=== PATIENT | male | born 1940 | race Caucasian/White ===

== ENCOUNTER 2017-01-17 10:21 | Emergency (ER) | payer BC ==
[~2017-01-17] VITALS: Ht 185.4 cm; Wt 122.9 kg
[~2017-01-17 10:21] MED LIST: FINA5TAB PO; FLM4 PO; LISI-725 PO
[2017-01-17 10:47] VITALS: TEMP 36.5; Ht 185.4 cm; Wt 122.9 kg
--- NOTE | 2017-01-17 11:43 | DIAGNOSTIC IMAGING REPORT ---
CHEST ONE VIEW PORTABLE CLINICAL HISTORY: severe hypertension ARM HEAVINESS COMPARISON STUDY: 07/01/2010 FINDINGS: The heart is borderline enlarged. There is no failure. There is no focal pulmonary consolidation. There are no pleural effusions.[ IMPRESSION: Borderline cardiomegaly.. No acute findings. Electronically signed by: Rajan Lee M.D. 01/17/2017 11:42 AM Dictated Date/Time: 01/17/2017 11:41 AM
--- NOTE | 2017-01-17 11:49 | EMERGENCY ROOM VISIT NOTE ---
History Report prepared by Merle: Dori Lundberg Under the Supervision of: Dr. Mahesh Ervin M.D. First contact with patient: 11:11 Chief Complaint: HYPERTENSION Stated Complaint: HEAVY ARMS, HIGH BLOOD PRESSURE History of Present Illness The patient is a 76 year old male who presents to the Emergency Room with complaints of hypertension occurring today. He reports that he missed his Lisinopril last night, but that he took it this morning. He states that his arms have felt heavy and weak. The patient denies other symptoms. He has a history of atrial fibrillation. Source of History: patient Onset: today Position: other (global) Quality: other (hypertension) Associated Symptoms: + weakness (of arms), No fevers Review of Systems See HPI for pertinent positives & negatives. A total of 10 systems reviewed and were otherwise negative. Past Medical & Surgical Medical Problems: (1) Heart disease (2) Hypertension (3) Kidney stones (4) Urinary problem Family History Hypertension Kidney stone Social History Smoking Status: Former Smoker Marital Status: Housing Status: lives with significant other Current/Historical Medications Scheduled Flecainide (Tambocor), 150 MG PO BID Lisinopril (Zestril), 40 MG PO DAILY Tamsulosin Hcl (Flomax), 0.4 MG PO DAILY Allergies Coded Allergies: Morphine (Verified Adverse Reaction, Mild, FACE REDDENED, REPORTS FEELING HOT, 11/22/10) Physical Exam Vital Signs Date Time Temp Pulse Resp B/P (MAP) Pulse Ox O2 Delivery O2 Flow Rate FiO2 01/17/17 14:10 48 16 137/72 98 Room Air 01/17/17 12:23 52 16 149/81 98 Room Air 01/17/17 12:07 52 01/17/17 12:06 96 Room Air 01/17/17 12:06 96 Room Air 01/17/17 11:42 52 16 145/90 98 Room Air 01/17/17 10:47 36.5 57 18 173/83 96 Room Air Physical Exam GENERAL: Patient is a healthy-appearing well-nourished male HEAD: Normocephalic atraumatic EYES: Ocular movements intact pupils equal and react to light OROPHARYNX mucous membranes are moist no exudates present no erythema or edema present NECK: Supple no nuchal rigidity CHEST: Good equal expansion LUNGS: Clear and equal to auscultation CARDIAC: Normal S1 and S2 ABDOMEN: Soft nontender no guarding BACK: No CVA tenderness EXTREMITIES: No pain upon palpation normal muscle strength in all groups no clubbing cyanosis or edema NEURO: Patient is following commands and answering questions appropriately. Alert and oriented x3 Cranial Nerves 2-12 grossly intact Medical Decision & Procedures ER Provider Diagnostic Interpretation: X-ray results as stated below per interpretation by me and the radiologist: CHEST ONE VIEW PORTABLE CLINICAL HISTORY: severe hypertension ARM HEAVINESS COMPARISON STUDY: 07/01/2010 FINDINGS: The heart is borderline enlarged. There is no failure. There is no focal pulmonary consolidation. There are no pleural effusions.[ IMPRESSION: Borderline cardiomegaly.. No acute findings. Electronically signed by: Rajan Lee M.D. 01/17/2017 11:42 AM Dictated Date/Time: 01/17/2017 11:41 AM Laboratory Results 01/17/17 11:45 Red Blood Count 5.25, Mean Corpuscular Volume 92.6, Mean Corpuscular Hemoglobin 30.1, Mean Corpuscular Hemoglobin Concent 32.5, Mean Platelet Volume 10.3, Neutrophils (%) (Auto) 62.2, Lymphocytes (%) (Auto) 18.8, Monocytes (%) (Auto) 14.1, Eosinophils (%) (Auto) 4.3, Basophils (%) (Auto) 0.4, Neutrophils # (Auto ) 2.91, Lymphocytes # (Auto) 0.88, Monocytes # (Auto) 0.66, Eosinophils # (Auto ) 0.20, Basophils # (Auto) 0.02 01/17/17 13:15 Test 01/17/17 11:45 01/17/17 13:15 White Blood Count 4.68 K/uL (4.8-10.8) Red Blood Count 5.25 M/uL (4.7-6.1) Hemoglobin 15.8 g/dL (14.0-18.0) Hematocrit 48.6 % (42-52) Mean Corpuscular Volume 92.6 fL (80-100) Mean Corpuscular Hemoglobin 30.1 pg (25-34) Mean Corpuscular Hemoglobin Concent 32.5 g/dl (32-36) Platelet Count 237 K/uL (130-400) Mean Platelet Volume 10.3 fL (7.4-10.4) Neutrophils (%) (Auto) 62.2 % Lymphocytes (%) (Auto) 18.8 % Monocytes (%) (Auto) 14.1 % Eosinophils (%) (Auto) 4.3 % Basophils (%) (Auto) 0.4 % Neutrophils # (Auto) 2.91 K/uL (1.4-6.5) Lymphocytes # (Auto) 0.88 K/uL (1.2-3.4) Monocytes # (Auto) 0.66 K/uL (0.11-0.59) Eosinophils # (Auto) 0.20 K/uL (0-0.5) Basophils # (Auto) 0.02 K/uL (0-0.2) RDW Standard Deviation 43.0 fL (36.4-46.3) RDW Coefficient of Variation 12.8 % (11.5-14.5) Immature Granulocyte % (Auto) 0.2 % Immature Granulocyte # (Auto) 0.01 K/uL (0.00-0.02) Prothrombin Time 13.9 SECONDS (9.0-12.0) Prothromb Time International Ratio 1.3 (0.9-1.1) Activated Partial Thromboplast Time 42.7 SECONDS (21.0-31.0) Partial Thromboplastin Ratio 1.6 Urine Color DK YELLOW Urine Appearance CLEAR (CLEAR) Urine pH 7.0 (4.5-7.5) Urine Specific Greene 1.017 (1.000-1.030) Urine Protein NEG (NEG) Urine Glucose (UA) NEG (NEG) Urine Ketones NEG (NEG) Urine Occult Blood NEG (NEG) Urine Nitrite NEG (NEG) Urine Bilirubin NEG (NEG) Urine Urobilinogen NEG (NEG) Urine Leukocyte Esterase NEG (NEG) Anion Gap 3.0 mmol/L (3-11) Est Creatinine Clear Calc Drug Dose 85.0 ml/min Estimated GFR () 83.8 Estimated GFR (Non- 72.3 BUN/Creatinine Ratio 15.9 (10-20) Calcium Level 9.0 mg/dl (8.5-10.1) Total Bilirubin 0.9 mg/dl (0.2-1) Direct Bilirubin 0.3 mg/dl (0-0.2) Aspartate Amino Transf (AST/SGOT) 18 U/L (15-37) Alanine Aminotransferase (ALT/SGPT) 21 U/L (12-78) Alkaline Phosphatase 65 U/L (45-117) Total Creatine Kinase 78 U/L (39-308) Creatine Kinase MB 2.5 ng/ml (0.5-3.6) Creatine Kinase MB Ratio 3.2 (0-3.0) Troponin I < 0.015 ng/ml (0-0.045) Total Protein 6.7 gm/dl (6.4-8.2) Albumin 3.6 gm/dl (3.4-5.0) Lipase 82 U/L (73-393) Thyroid Stimulating Hormone (TSH) 0.681 uIu/ml (0.300-4.500) Labs reviewed by ED physician. ECG Indication: other (hypertension) Rate (beats per minute): 51 Rhythm: sinus bradycardia Findings: 1st degree AV block, no acute ischemic change, no ectopy ED Course 1149: Past medical records reviewed. The patient was evaluated in room C8. A complete history and physical examination was performed. Medical Decision Differential diagnosis: Etiologies such as benign hypertension, hypertensive emergency, cardiovascular pathology, pheochromocytoma, electrolyte abnormality, renal disease, endorgan damage, as well as others were entertained. This is a 76-year-old male who presents emergency department complaining of hypertension. The patient notes that he did not take his blood pressure medication last night prior to coming into the emergency department. As such as blood pressure has fallen. He has normal laboratory work has no symptoms at this point. Feel he can be safely discharged home for follow-up with his primary care physician. Patient was in agreement with the treatment plan. Medication Reconcilliation Current Medication List: was personally reviewed by me Blood Pressure Screening Patient's blood pressure: Elevated blood pressure Blood pressure disposition: Referred to PCP Impression Primary Impression: Hypertension Scribe Attestation The scribe's documentation has been prepared under my direction and personally reviewed by me in its entirety. I confirm that the note above accurately reflects all work, treatment, procedures, and medical decision making performed by me. Departure Information Dispostion Home / Self-Care Referrals Chris Hairston M.D. (PCP) Forms HOME CARE DOCUMENTATION FORM, IMPORTANT VISIT INFORMATION, WORK / SCHOOL INSTRUCTIONS Patient Instructions Hypertension In, My [facility] Additional Instructions You were found to have an elevated blood pressure today (>120 sytolic or >90 diastolic). Per medicare guidelines, you need to follow up with this blood pressure screening with your Primary Care Physician (PCP). For a new PCP call [phone]. You have been examined and treated today on an emergency basis only. This is not a substitute for, or an effort to provide, complete comprehensive medical care. It is impossible to recognize and treat all injuries or illnesses in a single emergency department visit. It is therefore important that you follow up closely with [facility]. Call as soon as possible for an appointment. Thank you for your time and consideration. I look forward to speaking with you again soon. Please don't hesitate to call us if you have any questions. Problem Qualifiers Primary Impression: Hypertension Hypertension type: unspecified Qualified Codes: I10 - Essential (primary) hypertension
[2017-01-17 12:06] VITALS: O2SAT 96
[2017-01-17 12:28] LABS: INR 1.3 (0.9-1.1); PARTIAL THROMBOPLASTIN RATIO 1.6; PROTHROMBIN TIME (PATIENT) 13.9 SECONDS (9.0-12.0)
[2017-01-17 13:40] LABS: URINE APPEARANCE CLEAR (CLEAR); URINE BILIRUBIN NEG (NEG); URINE COLOR DK YELLOW; URINE NITRITE NEG (NEG); URINE SPECIFIC GRAVITY 1.017 (1.000-1.030); UROBILINOGEN NEG (NEG)
[2017-01-17 13:41] LABS: MANUAL MICROSCOPIC REQUIRED? NO; REVIEW REQ? NO
[2017-01-17 13:56] LABS: ALT/SGPT 21 U/L (12-78); BLOOD UREA NITROGEN 16 mg/dl (7-18); BUN/CREATININE RATIO 15.9 (10-20); CARBON DIOXIDE 31 mmol/L (21-32); CHLORIDE 104 mmol/L (98-107); GLUCOSE 92 mg/dl (70-99); POTASSIUM 4.3 mmol/L (3.5-5.1); SODIUM 138 mmol/L (136-145)
[2017-01-17 14:10] VITALS: BP 137/72; PULSE 48; O2SAT 98
[2017-01-17 14:12] LABS: ALKALINE PHOSPHATASE 65 U/L (45-117); AST/SGOT 18 U/L (15-37); CKMB/CK RATIO 3.2 (0-3.0); THYROID STIMULATING HORMONE 0.681 uIu/ml (0.300-4.500)
[2017-01-17] MEDS ORDERED: LISI40TA PO (14:19)
[2017-01-17] MEDS ORDERED: FLEC100T21 PO (14:19)
[2017-01-17] MEDS ORDERED: TAMS0.4C38 PO (14:19)
[2017-01-17 15:22] LABS: BASO % 0.4 %; BASO ABS # 0.02 K/uL (0-0.2); COMPLETE YES; EOS % 4.3 %; HEMATOCRIT 48.6 % (42-52); IG% 0.2 %; LYMPH % 18.8 %; LYMPH ABS # 0.88 K/uL (1.2-3.4); MEAN CELL VOLUME 92.6 fL (80-100); MEAN CORPUSCULAR HEMOGLOBIN 30.1 pg (25-34); MEAN CORPUSCULAR HGB CONC 32.5 g/dl (32-36); MEAN PLATELET VOLUME 10.3 fL (7.4-10.4); MONO % 14.1 %; NEUT % 62.2 %; PLATELET COUNT 237 K/uL (130-400); RED BLOOD COUNT 5.25 M/uL (4.7-6.1); WHITE BLOOD COUNT 4.68 K/uL (4.8-10.8)
== END 2017-01-17 14:41 | disposition home or self-care (01) ==
LOC: C.EDB 10:23 → C.EDC 14:41
DX: I10 Essential (primary) hypertension (principal); I48.91 Unspecified atrial fibrillation; Z87.442 Personal history of urinary calculi; Z82.49 Family history of ischemic heart disease and other diseases of the circulatory system; Z84.1 Family history of disorders of kidney and ureter; Z87.891 Personal history of nicotine dependence; Z79.899 Other long term (current) drug therapy

== ENCOUNTER → 2017-03-05 | Outpatient (CLI) | payer BC ==
[~2017-03-05] MED LIST changes: -FINA5TAB PO; +FLEC100T21 PO; -FLM4 PO; -LISI-725 PO; +LISI40TA PO; +TAMS0.4C38 PO
[2017-03-05 13:09] LABS: BLOOD UREA NITROGEN 19 mg/dl (7-18); BUN/CREATININE RATIO 19.3 (10-20)
== END | disposition home or self-care (01) ==
LOC: C.LABPVFM 08:42
PROVIDERS: ATTEND Internal Medicine Geriatric Medicine
DX: I10 Essential (primary) hypertension (principal); I48.91 Unspecified atrial fibrillation; N20.0 Calculus of kidney; M19.90 Unspecified osteoarthritis, unspecified site; G62.9 Polyneuropathy, unspecified; I49.5 Sick sinus syndrome; R97.20 Elevated prostate specific antigen [PSA]; N52.9 Male erectile dysfunction, unspecified

== ENCOUNTER 2024-01-20 05:17 | Observation (INO) ==
--- NOTE | 2024-01-15 10:40 | PAT Medication Instructions ---
Medication Instructions Date of Service January 15, 2024 Home Medications Medication Instructions Recorded apixaban 5 mg tablet (Eliquis) 5 mg PO BID #180 tabs 05/24/22 sennosides 8.6 mg tablet (Senokot) 8.6 mg PO BID PRN constipation #30 04/04/23 tabs losartan 100 mg tablet 100 mg PO QAM #90 tabs 07/11/23 flecainide 150 mg tablet 150 mg PO BID #180 tabs 10/17/23 silodosin 8 mg capsule (Rapaflo) 8 mg PO QPM #90 caps 11/21/23 multivitamin (Multiple Vitamins tablet) 1 tab PO QAM ascorbic acid (vitamin C) 500 mg tablet (Vitamin C) 500 mg PO QAM cyanocobalamin (vitamin B-12) 500 mcg tablet (Vitamin B-12) 500 mcg PO QAM polyethylene glycol 3350 17 gram oral powder packet (Miralax) 17 g PO QAM cholecalciferol (vitamin D3) 25 mcg (1,000 unit) tablet (Vitamin D3) 1,000 unit PO QAM apixaban 5 mg tablet (Eliquis) 5 mg PO BID zinc gluconate 50 mg tablet 25 mg PO QAM sennosides 8.6 mg tablet (Senokot) 8.6 mg PO BID PRN dutasteride 0.5 mg capsule 0.5 mg PO DAILY losartan 100 mg tablet 100 mg PO QAM flecainide 150 mg tablet 150 mg PO BID tavaborole 5 % topical solution with applicator 1 applic topical DAILY silodosin 8 mg capsule (Rapaflo) 8 mg PO QPM furosemide 40 mg tablet 40 mg PO UD PRN potassium chloride 20 mEq tablet,extended release 20 meq PO UD PRN solifenacin 5 mg tablet (Vesicare) 5 mg PO QAM vit C 250 mg-vit E 90 mg-zinc 40 mg-copper 1 [id number] capsule (PreserVision AREDS-2) 1 tab PO BID Continue as directed dutasteride 0.5 mg capsule 0.5 mg PO DAILY ASK your prescriber and surgeon apixaban 5 mg tablet (Eliquis) 5 mg PO BID (in order for spinal or epidural anesthesia, Eliquis needs to be stopped 72 hours/3 days before surgery. Please check if okay with doctor that prescribes this to you) STOP taking 2 weeks before surgery (or as soon as possible if surgery is within 2 weeks) vit C 250 mg-vit E 90 mg-zinc 40 mg-copper 1 [id number]-[id number] capsule (PreserVision AREDS-2) 1 tab PO BID STOP taking 24 hours before surgery tavaborole 5 % topical solution with applicator 1 applic topical DAILY DO NOT take the morning of surgery multivitamin (Multiple Vitamins tablet) 1 tab PO QAM ascorbic acid (vitamin C) 500 mg tablet (Vitamin C) 500 mg PO QAM cyanocobalamin (vitamin B-12) 500 mcg tablet (Vitamin B-12) 500 mcg PO QAM polyethylene glycol 3350 17 gram oral powder packet (Miralax) 17 g PO QAM cholecalciferol (vitamin D3) 25 mcg (1,000 unit) tablet (Vitamin D3) 1,000 unit PO QAM zinc gluconate 50 mg tablet 25 mg PO QAM sennosides 8.6 mg tablet (Senokot) 8.6 mg PO BID PRN losartan 100 mg tablet 100 mg PO QAM furosemide 40 mg tablet 40 mg PO UD PRN potassium chloride 20 mEq tablet,extended release 20 meq PO UD PRN solifenacin 5 mg tablet (Vesicare) 5 mg PO QAM Take morning of surgery With a small sip of water, OTHERWISE NOTHING TO EAT OR DRINK AFTER MIDNIGHT: flecainide 150 mg tablet 150 mg PO BID Take evening before surgery sennosides 8.6 mg tablet (Senokot) 8.6 mg PO BID PRN(if needed) flecainide 150 mg tablet 150 mg PO BID silodosin 8 mg capsule (Rapaflo) 8 mg PO QPM Other Notes If you have any questions please call us at [phone] or [phone] or [phone] or [phone]
--- NOTE | 2024-01-16 12:30 | Anesthesiology Consultation ---
Date of Service January 16, 2024 Assessment & Plan (1) Encounter for pre-operative examination: - cardiology office visit 05/23/23 [place]: "...Atrial fibrillation: Symptomatically his atrial fibrillation is under very good control, based on identification of asymptomatic atrial fibrillation last year he may have it from time to time but with a controlled heart rate and no symptoms this is an acceptable endpoint...to continue his flecainide 150 mg twice a day...Sick sinus syndrome...sick sinus syndrome with a history of sinus bradycardia while on beta-blockade and a somewhat rapid heart rate while in atrial fibrillation, however at his recent episode of atrial fibrillation his heart rate was well-controlled and asymptomatic. It appears that we can control his rhythm and avoid a pacemaker for now...Edema: He is having a little bit of difficulty with edema following his falls, I suspect a lot of that is immobility and he is on his feet a fair amount...to get an echocardiogram however..." - Case discussed in detail with Dr. Kong who advised patient is acceptable to proceed with surgery at current status. - Outpatient joint assessment: Patient is currently scheduled for inpatient pathway. If re-evaluated and patient/surgeon requests outpatient pathway, patient is not advised candidate for outpatient joint program from anesthesia standpoint. Chart Review Chart Review: Acceptable Risk for Surgery and Patient seen in Pre Admission Testing Teaching & Discussion Pre-Anesthesia Teaching/Discussion Notes: Instructed NPO after midnight before surgery, except medications with 15 cc of water. Medication instructions provided according to the PAT guidelines. History Surgery Operation Date: 01/20/24 07:00 Proposed Procedures p Right Anterior Total Hip Arthroplasty - Srinath Saez DO Height/Weight Height: 5 ft 11 in Weight: 117.3 kg Allergies Allergy/AdvReac Type Severity Reaction Status Date / Time lisinopril AdvReac Unknown cough Verified 01/15/24 11:08 morphine AdvReac Unknown FACE Verified 01/15/24 11:08 REDDENED, REPORTS FEELING HOT & tongue swelling nebivolol [From Bystolic] AdvReac Unknown PT NOT Verified 01/15/24 11:08 SURE ? tamsulosin AdvReac Unknown PT CAN'T Verified 01/15/24 11:08 REMEMBER REACTION Medications Home Medications Medication Instructions Recorded Confirmed Last Taken multivitamin (Multiple Vitamins 1 tab PO QAM 03/05/19 01/15/24 09/04/21 tablet) ascorbic acid (vitamin C) 500 mg 500 mg PO QAM 11/29/20 01/15/24 09/04/21 tablet (Vitamin C) cyanocobalamin (vitamin B-12) 500 500 mcg PO QAM 08/15/21 01/15/24 09/04/21 mcg tablet (Vitamin B-12) polyethylene glycol 3350 17 gram 17 g PO QAM 08/15/21 01/15/24 09/04/21 oral powder packet (Miralax) cholecalciferol (vitamin D3) 25 1,000 unit PO QAM 11/09/21 01/15/24 Unknown mcg (1,000 unit) tablet (Vitamin D3) apixaban 5 mg tablet (Eliquis) 5 mg PO BID #180 tabs 05/24/22 01/15/24 Unknown zinc gluconate 50 mg tablet 25 mg PO QAM 11/16/22 01/15/24 Unknown sennosides 8.6 mg tablet (Senokot) 8.6 mg PO BID PRN constipation #30 04/04/23 01/15/24 Unknown tabs dutasteride 0.5 mg capsule 0.5 mg PO DAILY 05/20/23 01/15/24 Unknown losartan 100 mg tablet 100 mg PO QAM #90 tabs 07/11/23 01/15/24 Unknown flecainide 150 mg tablet 150 mg PO BID #180 tabs 10/17/23 01/15/24 Unknown tavaborole 5 % topical solution 1 applic topical DAILY 10/29/23 01/15/24 Unknown with applicator silodosin 8 mg capsule (Rapaflo) 8 mg PO QPM #90 caps 11/21/23 01/15/24 Unknown furosemide 40 mg tablet 40 mg PO UD PRN edema 01/14/24 01/15/24 Unknown potassium chloride 20 mEq 20 meq PO UD PRN edema 01/14/24 01/15/24 Unknown tablet,extended release solifenacin 5 mg tablet (Vesicare) 5 mg PO QAM 01/14/24 01/15/24 Unknown vit C 250 mg-vit E 90 mg-zinc 40 1 tab PO BID 01/14/24 01/15/24 Unknown mg-copper 1 [id number] capsule (PreserVision AREDS-2) Past Medical History Medical History (Updated 01/16/24 @ 15:40 by Taylor Dallas PA-C) Arthritis Enlarged prostate History of atrial fibrillation dx approx 2013 - no hx cardioversion History of kidney stones (~2003) History of vitamin D deficiency borderline. HTN (hypertension) controlled, stable per pt Impaired mobility Lumbar degenerative disc disease steroid injection for back December 26 2023 Macular degeneration early Mild cognitive disorder sometimes forgetful/pt reports thinks age related. No neurology dx, no neurology. pt reports wellness cognitive test upcoming sometime 2023. Neck problem limited rom. Overactive bladder Pre-diabetes pt denies Rosacea SSS (sick sinus syndrome) follows with [place] cardiology Patient denies h/o stroke, seizures, heart attack, heart failure, DM, blood clots/DVTs or blood transfusions. Exercise / Class Metabolic Activity III < 4 Walking/Shop/Light housework (ambulates with rolling walker, denies chest discomfort or shortness of breath with usual activities) Past Family History Family History Son Esophageal reflux Brother Brain tumor Prostate cancer Unknown Nephrolithiasis Denies family history of Ovarian cancer Diabetes Myocardial infarction Breast cancer Lung cancer Colorectal cancer Hypertension Past Surgical History Surgical History H/O colonoscopy H/O shoulder surgery right- 2004, repair of rotator cuff. History of colonoscopy with polypectomy "PRE CANCEROUS, GOT IT ALL" History of left cataract surgery History of right cataract surgery Past Anesthesia History No Hx of Anesthesia Complications and No Family Hx of Anesthesia Complications History of PONV No Hx of PONV and No Hx of Motion Sickness Social History Smoking Status: Former smoker Do You Dip or Chew Tobacco: No Smoking End Date: 1971 Hx Alcohol Use: Yes Alcohol type: hard liquor alcohol intake frequency: a few times a week Hx Substance Use: No substance use type: does not use Review of Systems Patient denies chest pain, shortness of breath, dyspnea on exertion, snoring, witnessed apneas, reflux, fever, chills, cough, wheezing, or palpitations. Physical Exam Vital Signs Vitals BP 154/72 P 58 TEMP 98.1 SP02 96% on RA RESP 18 Physical Patient resting comfortably in chair in no acute distress, alert and oriented, responding appropriately throughout visit Full cervical extension range of motion without pain TMD 3.5 finger breadths Mallampati Score 2 Dentition: several caps/crowns and one implant, denies chipped or loose teeth, or bridges Lungs: normal respiratory effort. Good air movement, clear throughout to auscultation, no adventitious breath sounds Cardiac: regular rate and rhythm, no murmurs noted Carotid arteries: negative bruit bilat Lab Results Anesthesia Preop Results Results Anesthesia Widget: WBC 4.89 K/ul (4.8-10.8) 01/16/24 Hgb 12.5 g/dl (14.0-18.0) L 01/16/24 Hct 39.2 % (42.0-52.0) L 01/16/24 Plt 189 K/uL (130-400) 01/16/24 Na 139 mmol/L (136-145) 01/16/24 K 3.9 mmol/L (3.5-5.1) 01/16/24 Cl 104 mmol/L (98-107) 01/16/24 CO2 30 mmol/L (21-32) 01/16/24 BUN 23 mg/dl (6-23) 01/16/24 Creat 0.95 mg/dl (0.6-1.4) 01/16/24 Glucose Level 91 mg/dl (70-99(Fasting)) 01/16/24 PT 12.6 Seconds (9.0-12.0) H 01/16/24 PTT 31 Seconds (21-31) 01/16/24 INR 1.2 (0.9-1.1) H 01/16/24 Blood Type O Positive 01/16/24 Antibody Screen NEGATIVE 01/16/24 Testing Electrocardiogram Date: 05/23/23 Sinus rhythm with 1st degree AV block, rate 60 bpm Nonspecific intraventricular conduction delay Chest X-Ray Date: 01/16/24 No acute process. Echocardiogram Date: 06/06/23 EF 45-50% Mildly dilated LV Mild global hypokinesis of the LV Mild mitral regurgitation Mildly dilated LA
[2024-01-20] MEDS: ACETAMINOPHEN 500 MG TAB PO SCH ×2 (05:51→13:57)
[2024-01-20] MEDS: LR 60ML/HR IV SCH (05:51)
[2024-01-20] MEDS: LR 500ML BOLUS, THEN 15ML/HR IV SCH (05:51)
[2024-01-20] MEDS: FAMOTIDINE 20 MG TAB PO SCH (05:51)
[2024-01-20] MEDS: dexAMETHasone**PF** 10 MG/ML VIAL IV SCH (05:52)
[2024-01-20] MEDS: GABAPENTIN 300 MG CAP PO SCH (05:52)
[2024-01-20] MEDS ORDERED: BUPIVACAINE 0.5 % 5 MG/1 ML PF 10ML VIAL ONE (06:16)
--- NOTE | 2024-01-20 06:31 | History & Physical Bridge Note ---
Date of Service January 20, 2024 History & Physical Bridge Note I have examined the patient, reviewed the History & Physical and in the interval since the performance of the History & Physical I have noted the following changes of clinical significance: no changes noted
[2024-01-20] MEDS ORDERED: ATROPINE SULFATE 0.1 MG/ML 10ML SYR IV PRN (06:37)
[2024-01-20] MEDS ORDERED: ePHEDrine sulfate 50 MG/ML AMP IV PRN (06:37)
[2024-01-20] MEDS ORDERED: ONDANSETRON INJ 2 MG/ML 2 ML VIAL IV PRN ×2 (06:37→09:50)
[2024-01-20] MEDS ORDERED: fentaNYL citrate PF 100 MCG/2 ML VIAL IV PRN (06:37)
[2024-01-20] MEDS ORDERED: MIDAZOLAM HCL 1 MG/ML 2ML VIAL ONE (06:40)
[2024-01-20] MEDS ORDERED: fentaNYL citrate PF 100 MCG/2 ML VIAL ONE (06:40)
[2024-01-20] MEDS: TRANEXAMIC ACID 1,000 MG **IV Pre-op IV SCH (06:42)
[2024-01-20] MEDS: ceFAZolin 2000MG 2,000 MG/15 ML SYR IV SCH ×2 (07:02→15:20)
[2024-01-20] MEDS: ROPIV 0.5% 246mg, Ketorolac 30mg, EPINEPHrine 0.5mg in NSS INFIL SCH (07:32)
[2024-01-20] MEDS: TRANEXAMIC ACID 1,000 MG **IV Intra-op IV SCH (08:03)
--- NOTE | 2024-01-20 08:04 | Operative Report ---
PG Post Operative Report Pre & Post Diagnosis Operation Date: 01/20/24 07:00 Pre-Op Diagnosis: Degenerative Joint Disease Right Hip Post-Op Diagnosis: Degenerative Joint Disease Right Hip I identified the patient and participated in the time-out.: Yes Procedure Operation Date: 01/20/24 07:00 Actual Procedures p Right Anterior Total Hip Arthroplasty(Right) - Srinath Saez DO Surgeon Srinath Saez DO Security Control Center Operator Srinath Chaudhary PA-C Estimated Blood Loss 250 Findings Consistent with Post-Op Diagnosis Specimens Right femoral head Description of Procedure Implants used I used a ZimmerBiomet total hip arthroplasty system with a size 7 standard offset Avenir Complete stem, a 54 mm G7 cup with a 25mm screw, an E1 polyet hylene liner, a 40 mm ceramic head with a +3.5 neck. Gunner arrived at the hospital for the above procedure. He was seen in the preoperative holding area and the operative extremity was identified and signed. He was given a spinal anesthetic, a preoperative antibiotic, and TXA. He was then taken back to the operating room and laid on the table in the supine position. He was given basic sedation. The operative leg was secured to a Puristst leg positioner. The hip was then prepped and draped in sterile fashion. A timeout was done and the patient and the operative extremity was properly identified. An anterior approach was used. Dissection was taken down through the fascia and the tensor muscle belly was retracted laterally and the rectus was retracted medially. The circumflex vessels were identified and ligated. The capsule was then incised and tagged for later repair. The femoral neck was then cut and the femoral head was removed. The acetabulum was exposed. Time was spent doing a complete circumferential labral release. Sequential reaming of the acetabulum up to a size 53 reamer was done. Final reamings were done under fluoroscopy to ensure appropriate version. A Biomet 54 mm G7 cup was then impacted into place. A single 25 mm screw was placed. The E1 polyethylene liner was then snapped into place. Surrounding soft tissues were then injected with 100 cc of an orthopedic pain control cocktail. The proximal femur was then exposed. Sequential broaching up to a size 7 broach was done. Off that broach a size 40 head with a +3.5 neck was trialed. The hip was reduced and fluoroscopic images showed anatomic alignment of the implants in acceptable length. The broach was removed. The final size 7 standard offset Avenir Complete stem was then impacted into place. A ceramic 40 mm head with a +3.5 neck was then impacted onto the stem and the hip was reduced. Final fluoroscopic images showed anatomic alignment of the hip. The capsule was then closed with #1 Vicryl suture. A dilute betadyne lavage was then done for 3 minutes. The joint was then irrigated with normal saline solution. The fascia was closed with #1 PDS suture. Skin was closed with 2-0 Vicryl, ana, and a Silverlon dressing. He was then transferred to a hospital bed and taken to the post anesthesia care unit in stable condition. He tolerated the procedure well. Srinath Chaudhary PA-C, was present for the entire procedure. He was critical for patient positioning, prepping, draping, retraction exposure, wound closure and application of sterile dressing. I attest to the content of the Intraoperative Record and any orders documented therein. Any exceptions are noted below.
[2024-01-20] MEDS ORDERED: PROPOFOL IV EMULSION 10 MG/ML 20 ML VIAL IV ONE (08:11)
[2024-01-20] MEDS ORDERED: LIDOCAINE 2% 2 ML VIAL/AMP(20MG/ML) INFIL ONE (08:11)
--- NOTE | 2024-01-20 08:44 | Fluoroscopy Report ---
FL hip RT 1V CLINICAL HISTORY: RT ANTERIOR HIP TECHNIQUE: 1 views were obtained with the C-arm in the OR with the above procedure. Total fluoroscopy time was 12.6 seconds. Radiation dose was 11.4 mGy. Comparison: Comparison is made to CT pelvis 10/28/2023 FINDINGS/IMPRESSION: Intraoperative images were obtained of the right hip arthroplasty. Please correlate with intraoperative fluoroscopy and operative report. ACT 112: Negative or not required by law. Electronically signed by: Ronnie Dillon M.D. 01/20/2024 8:43 AM
--- NOTE | 2024-01-20 09:34 | XRay Report ---
XR hip 1V RT w pelvis CLINICAL HISTORY: IN PACU - Post Surgical TECHNIQUE: 1 view of the right hip and single frontal view of the pelvis were obtained. Comparison: Comparison is made to hip radiographs 05/08/2023 FINDINGS: Patient is status post total hip arthroplasty with expected postsurgical changes including soft tissu e swelling and subcutaneous emphysema. IMPRESSION: Expected postoperative appearance status post placement of total hip arthroplasty. ACT 112: Negative or not required by law. Electronically signed by: Ronnie Dillon M.D. 01/20/2024 9:32 AM
[2024-01-20] MEDS ORDERED: oxyCODONE HCL IR 5 MG TAB (IMMEDIATE RELEASE) PO PRN (09:50)
[2024-01-20] MEDS ORDERED: MAGNESIUM HYDROXIDE SUSP 30 ML UDC PO PRN (09:50)
[2024-01-20] MEDS ORDERED: MULTIVITAMIN TAB PO SCH (09:50)
[2024-01-20] MEDS ORDERED: POTASSIUM CHLORIDE CRTAB 20 MEQ TABCR PO PRN (09:50)
[2024-01-20] MEDS ORDERED: METOCLOPRAMIDE HCL INJ 5 MG/ML 2 ML VIAL IV PRN (09:50)
[2024-01-20] MEDS ORDERED: NALOXONE HCL 0.4 MG/1 ML VIAL/CARP IV PRN (09:50)
[2024-01-20] MEDS ORDERED: HYDROmorphone INJ 0.5 MG/0.5 ML SYR IV PRN (09:50)
[2024-01-20] MEDS ORDERED: bisacodyL 10 MG SUPP PR PRN (09:50)
[2024-01-20] MEDS ORDERED: FUROSEMIDE 40 MG TAB PO PRN (09:50)
[2024-01-20] MEDS: ORTHO JOINT ANESTHETIC ONE (09:52)
[2024-01-20] MEDS: SODIUM CHLORIDE 0.9% 1,000 ML IV SCH (10:13)
[2024-01-20] MEDS: LOSARTAN POTASSIUM 50 MG TAB PO SCH (10:30)
[2024-01-20] MEDS: DOCUSATE SODIUM 100 MG CAP PO SCH (10:31)
[2024-01-20] MEDS: KETOROLAC TROMETHAMINE 15 MG/ML VIAL IV SCH (10:36)
[2024-01-20] MEDS: APPLICATOR TOP SCH (10:38)
[2024-01-20] MEDS: [UNRECOGNIZED DRUG - OTHER] TOP SCH (10:38)
[2024-01-20] MEDS: FLECAINIDE ACETATE 100 MG TABLET PO SCH (10:38)
[2024-01-20] MEDS: OXYBUTYNIN CHLORIDE XL 5 MG TABCR PO SCH (10:43)
[2024-01-20] MEDS: CEROVITE ADV FORMULA TAB PO SCH (10:44)
[2024-01-20] MEDS: FINASTERIDE 5 MG TAB PO SCH (10:44)
--- NOTE | 2024-01-20 11:43 | Anesthesiology Progress Note ---
Date of Service January 20, 2024 Anesthesia Post Procedure Vital Signs Vital Signs: Temp Pulse Pulse Pulse Resp BP Pulse Ox 01/20/24 10:45 36.3 C L 68 16 145/71 H 97 01/20/24 10:15 36.4 C L 62 17 163/74 H 97 01/20/24 09:45 36.5 C 68 17 169/79 H 98 01/20/24 09:20 66 21 157/63 H 98 01/20/24 09:05 36.5 C 69 18 159/66 H 100 01/20/24 08:55 68 16 163/78 H 95 01/20/24 08:45 69 17 167/72 H 96 01/20/24 08:35 71 15 159/77 H 100 01/20/24 08:26 36.1 C L 75 24 153/66 H 97 01/20/24 05:37 36.7 C 70 20 197/90 H 95 O2 Del Method O2 Flow Rate 01/20/24 10:45 Room Air 01/20/24 10:15 Room Air 01/20/24 09:45 Room Air 01/20/24 09:20 Room Air 01/20/24 09:05 Room Air 01/20/24 08:55 Room Air 01/20/24 08:45 Room Air 01/20/24 08:35 Oxymask 3 01/20/24 08:26 Oxymask 6 01/20/24 05:37 Room Air Pain Intensity Right Hip: Pain Intensity: 3 Notes Mental Status: alert / awake / arousable Patient Amnestic to Procedure: Yes Nausea / Vomiting: adequately controlled Pain: adequately controlled Airway Patency, RR, SpO2: stable & adequate BP & HR: stable & adequate Hydration State: stable & adequate Neuraxial Anesthesia: was administered and sensory block is resolving Anesthetic Complications: no major complications apparent
[2024-01-20] MEDS: SENNA 8.6 MG TAB PO SCH (21:40)
[2024-01-20] MEDS: TAMSULOSIN HCL 0.4 MG CAP PO SCH (21:40)
--- NOTE | 2024-01-21 07:02 | Orthopedic Progress Note ---
Date of Service January 21, 2024 Assessment & Plan (1) Status post right hip replacement: Overall he is doing well. He is not having much pain in the right hip. He will be seen by physical therapy today for ambulation and range of motion exercises. He is on Eliquis for DVT prophylaxis. He can be discharged to home later today. He will follow-up orthopedics in 2 weeks. Savage Martino was seen and examined at bedside this morning. Overall he is doing fairly well. He is not having much pain in the right hip. He has been up and ambulating to the bathroom. He has no complaints.. Review of Systems All systems reviewed & are unremarkable except as noted in HPI & below. Physical Exam Physical examination of the right hip, the dressing is clean and dry. His leg is out full extension. He has active dorsiflexion plantarflexion of his right ankle.. Results & Data Results & Data Laboratory Results . Diagnostic Findings Postoperative x-rays of the right hip show the prosthesis to be in anatomic alignment without any evidence of fracture, his cage, or loosening.. PG Care Time/CCT Total # of Minutes Spent Total Time Spent with Patient: Total time spent is greater than 50% in coordination of care (as documented) at patient's floor/unit and/or counseling patient: Coding Level of Care Code 99707 Post Operative Follow-Up Diagnoses Status post right hip replacement Z96.641
--- NOTE | 2024-01-21 07:03 | Discharge Summary ---
Date of Service January 21, 2024 Principal Diagnosis Same as "Discharge Diagnosis" noted below under Discharge Instructions. Discharge Exam Physical examination of the right hip, the dressing is clean and dry. His leg is out full extension. He has active dorsiflexion plantarflexion of his right ankle.. Discharge Data Procedures Performed Operation Date: 01/20/24 07:00 Actual Procedures p Right Anterior Total Hip Arthroplasty(Right) - Srinath Saez DO Ordered Studies 01/20/24 07:00 FL hip RT 1V Routine Hospital Course (1) Status post right hip replacement: On January 20, 2024 Gunner arrived at [facility] and underwent a right hip replacement without complication. He had a spinal anesthetic. Postoperatively he was started back on Eliquis for DVT prophylaxis and transferred to the general orthopedic floors. His hospital course was uneventful. On postop day #1, his vital signs were stable and his pain was well-controlled. He was able to participate well with physical therapy doing ambulation and range of motion exercises. He was then discharged to home. He will follow-up with orthopedics in 2 weeks. PG Care Time/CCT Total # of Minutes Spent Total Time Spent with Patient: Total time spent is greater than 50% in coordination of care (as documented) at patient's floor/unit and/or counseling patient: Discharge Plan Discharge Items Patient Disposition: Home - Self-Care Reason For Visit: Degenerative Joint Disease Right Hip Discharge Diagnosis: Right hip replacement Activity: Per Instructions section Non-emergency contact: Surgeon Call non-emergency contact if: your wound has increased redness and your wound has increased drainage Follow-up/Referrals: Srinath Christianson DO [Primary Care Provider] - Diet: Regular Addtl Attending Provider Instructions: Activity and Therapy Recommendations: * If you are using [facility] then therapy will be provided at your home until they feel you have accomplished all of your goals. * If you are using [facility] then Physical Therapy will be provided until they feel you are ready to start Outpatient Physical Therapy. * If you are not using home therapy then Outpatient Physical Therapy should start about 3-5 days from your day of surgery. Therapy will last about 6-10 weeks * You were shown a series of exercises in the hospital. Do these exercises three times each day including the exercises you were shown in physical therapy. * Get up and walk several times each day.~ For the first four weeks, try not to stand or walk for more than one hour at a time. If you do stand or walk for more than one hour, you will not hurt anything, but your leg will likely swell.~~ * As you feel comfortable, you may change from the walker or crutches to a cane and~then to independent walking. Medications: * Narcotic You will likely be sent home from the hospital with a prescription for the narcotic pain medication that worked best throughout your stay. * Cefadroxil -take the antibiotic twice a day for 10 days to help prevent infection. * Continue taking your Eliquis as prescribed. * Other medications may be prescribed for specific circumstances. If you have any questions, please call the office at . * Resume previous home medications unless otherwise instructed TEDs/Elastic Stockings: The white elastic stockings help limit swelling and prevent blood clots from forming in your legs. The more you wear them, the more they work. Wear them for six weeks. Dressing Care: Leave the Silverlon dressing in place for 7 days. After 7 days you may remove the dressing. If the incision is not draining then you may leave the ana open to air. If there is a little bit of drainage or if the ana are getting stuck on your clothing then cover the incision with a dry dressing. The ana will be removed at your 2 week follow-up appointment. Showering: You may shower with the Silverlon dressing in place. Do not let the shower spray hit the dressing directly. Pat the Silverlon dressing dry. If the dressing becomes wet underneath, then simply remove the dressing. Keep the incision dry until you are 7 days out from the day of surgery. After 7 days you may remove the Silverlon dressing and shower with the ana exposed. Let soapy water run over the ana and pat them dry. Do not scrub or soak the incision. Things To Watch For: * Drainage from the incision site that occurs more than one week after your surgery. * Increased redness at the incision site. * Fever above 102 degrees Fahrenheit. * Unusual chest pain or shortness of breath. * Call [facility] at with any of the above problems Follow-Up Visit: Follow-up with Dr. Saez's PA (Srinath Chaudhary) 2-3 weeks after your day of surgery. He will remove your ana and answer any questions. If you have any additional questions or concerns, Dr Saez is usually in the office at the same time and will be available An appointment was probably scheduled when you signed-up for surgery in the office. If you have any questions call Office Instructions: More detailed instructions as well as Frequently Asked Questions were provided in a folder by our office when you signed-up for surgery. Please review these instructions when you get home. If you have any further questions or concerns, please feel free to call the office at [phone] Pending Studies at Discharge: No Stand-Alone Forms: My [facility], Smoking Cessation Medications and DC Order Prescriptions: New oxycodone 5 mg Tablet 5 mg PO Q4H PRN (Reason: pain) Qty: 30 0RF cefadroxil 500 mg capsule 500 mg PO BID 10 Days Qty: 20 0RF Continued Eliquis 5 mg tablet 5 mg PO BID Qty: 180 3RF losartan 100 mg tablet 100 mg PO QAM Qty: 90 3RF flecainide 150 mg tablet 150 mg PO BID Qty: 180 3RF Rx Instructions: TAKE 1 TABLET BY MOUTH EVERY 12 HOURS silodosin [Rapaflo] 8 mg capsule 8 mg PO QPM Qty: 90 1RF dutasteride 0.5 mg capsule 0.5 mg PO DAILY multivitamin [Multiple Vitamins] tablet 1 tab PO QAM zinc gluconate 50 mg tablet 25 mg PO QAM tavaborole 5 % solution with applicator 1 applic topical DAILY ascorbic acid (vitamin C) [Vitamin C] 500 mg Tablet 500 mg PO QAM cholecalciferol (vitamin D3) [Vitamin D3] 25 mcg (1,000 unit) tablet 1,000 unit PO QAM sennosides [Senokot] 8.6 mg tablet 8.6 mg PO BID PRN (Reason: constipation) Qty: 30 0RF cyanocobalamin (vitamin B-12) [Vitamin B-12] 500 mcg Tablet 500 mcg PO QAM Patient Comments: YOU CAN CHEW IT BUT I JUST SWALLOW IT polyethylene glycol 3350 [Miralax] 17 gram Powder In Packet 17 g PO QAM Patient Comments: MOSTLY EVERY MORNING PreserVision AREDS-2 250-90-40-1 mg Capsule 1 tab PO BID furosemide 40 mg tablet 40 mg PO UD PRN (Reason: edema) Patient Comments: haven't taken for awhile solifenacin [Vesicare] 5 mg tablet 5 mg PO QAM potassium chloride 20 mEq tablet extended release 20 meq PO UD PRN (Reason: edema) Patient Comments: haven't taken for awhile Discharge Orders: Discharge Order (Routine); Ordered 01/21/24 Ordered By: Srinath Saez Admission Data Admit Date/Time: 01/20/24 08:31 Attending Provider: Srinath Saez Admit Provider: Srinath Saez Primary Care Provider: Srinath Christianson
[2024-01-21 07:50] VITALS: RESP 20; TEMP 97.7
[2024-01-21] MEDS: APIXABAN 5 MG TABLET PO SCH (07:52)
[2024-01-21] MEDS: dexAMETHasone 4 MG TAB PO SCH (07:52)
[2024-01-21 10:25] VITALS: BP 176/89; PULSE 52; O2SAT 98
== END 2024-01-21 13:58 | disposition home or self-care (01) ==
LOC: ASU 05:17 → 3E 05:17

== ENCOUNTER 2024-03-20 05:06 | Inpatient (IN) ==
--- NOTE | 2024-03-11 10:22 | Anesthesiology Consultation ---
Date of Service March 11, 2024 Assessment & Plan (1) Encounter for pre-operative examination: - workload note sent to [place] PCP and cardiology team regarding worsened edema 02/19. Surgeon's office made aware. - check CBC with diff, BMP and coags STAT am DOS. - PCP office note 02/20/24 [place]: "...Suspect symptoms are most likely due to uncontrolled edema in left leg likely related to recent worsening of immobility related to hip surgery and some underlying heart failure as evidenced by his last echocardiogram...restart Lasix 40mg/day and KCL 20meq/day. He notes that he noted significant improvement with edema and redness with these. He's concerned about cellulitis and not having antibiotics. Explained this is a common diagnostic challenge as edema can cause redness and discomfort as well. Agreed to continue with Doxycycline 100mg PO BID x 7 days. He's to call for any rapid spreading of cellulitis, drainage, fevers, chills or lethargy...denies any symptoms of SOB or orthopnea. He's to call for any of these concerns or go to ER for severe symptoms...If s/s persist or he's unable to come off the lasix, then would update BMP/BNP/Mg and consider referral to his life skills teacher/HF clinic for more hands on management..." - Outpatient joint assessment: Patient is currently scheduled for inpatient pathway. If re-evaluated and patient/surgeon requests outpatient pathway, patient is not advised candidate for outpatient joint program from anesthesia standpoint. Chart Review Chart Review: Pending: Refer to Additional Notes / Consult section and Patient NOT seen in Pre Admission Testing History Surgery Operation Date: 03/20/24 12:00 Proposed Procedures p Left Anterior Total Hip Arthroplasty - Srinath Saez, Height/Weight Height: 5 ft 11 in Weight: 120.656 kg Allergies Allergy/AdvReac Type Severity Reaction Status Date / Time chlorhexidine AdvReac Intermediate Rash Verified 03/11/24 09:24 lisinopril AdvReac Intermediate cough Verified 03/11/24 09:24 morphine AdvReac Intermediate Reddened Verified 03/11/24 09:24 face/Hot flashes/Tongue swelling nebivolol [From Bystolic] AdvReac Unknown Unknown Verified 03/11/24 09:24 tamsulosin AdvReac Unknown Unknown Verified 03/11/24 09:24 Medications Home Medications Medication Instructions Recorded Confirmed Last Taken multivitamin (Multiple Vitamins 1 tab PO QAM 03/05/19 03/11/24 01/17/24 tablet) ascorbic acid (vitamin C) 500 mg 500 mg PO QAM 11/29/20 03/11/24 01/17/24 tablet (Vitamin C) cyanocobalamin (vitamin B-12) 500 500 mcg PO QAM 08/15/21 03/11/24 01/17/24 mcg tablet (Vitamin B-12) polyethylene glycol 3350 17 gram 17 g PO QAM 08/15/21 03/11/24 01/19/24 12:00 oral powder packet (Miralax) cholecalciferol (vitamin D3) 25 1,000 unit PO QAM 11/09/21 03/11/24 01/17/24 mcg (1,000 unit) tablet (Vitamin D3) apixaban 5 mg tablet (Eliquis) 5 mg PO BID #180 tabs 05/24/22 03/11/24 01/16/24 zinc gluconate 50 mg tablet 25 mg PO QAM 11/16/22 03/11/24 01/17/24 sennosides 8.6 mg tablet (Senokot) 8.6 mg PO BID PRN constipation #30 04/04/23 03/11/24 01/19/24 12:00 tabs dutasteride 0.5 mg capsule 0.5 mg PO DAILY 05/20/23 03/11/24 01/19/24 12:00 losartan 100 mg tablet 100 mg PO QAM #90 tabs 07/11/23 03/11/24 01/18/24 12:00 flecainide 150 mg tablet 150 mg PO BID #180 tabs 10/17/23 03/11/24 01/20/24 04:30 tavaborole 5 % topical solution 1 applic topical DAILY 10/29/23 03/11/24 Unknown with applicator silodosin 8 mg capsule (Rapaflo) 8 mg PO QPM #90 caps 11/21/23 03/11/24 01/19/24 19:00 solifenacin 5 mg tablet (Vesicare) 5 mg PO QAM 01/14/24 03/11/24 Unknown vit C 250 mg-vit E 90 mg-zinc 40 1 tab PO BID 01/14/24 03/11/24 01/17/24 mg-copper 1 he-cdzsnw-zoauws capsule (PreserVision AREDS-2) oxycodone 5 mg tablet 5 mg PO Q4H PRN pain #30 tabs 01/21/24 03/11/24 Unknown furosemide 40 mg tablet 40 mg PO UD PRN edema #30 tabs 02/20/24 03/11/24 Unknown potassium chloride 20 mEq 20 meq PO UD PRN edema #30 tabs 02/20/24 03/11/24 Unknown tablet,extended release Past Medical History Medical History Arthritis Enlarged prostate History of atrial fibrillation dx approx 2013 - no hx cardioversion - Nydegger History of kidney stones (~2003) History of vitamin D deficiency borderline. HTN (hypertension) controlled, stable per pt Impaired mobility Lumbar degenerative disc disease steroid injection for back December 26 2023 Macular degeneration early Mild cognitive disorder sometimes forgetful/pt reports thinks age related. No neurology dx, no neurology. pt reports wellness cognitive test upcoming sometime 2023. Neck problem limited rom. Overactive bladder Pre-diabetes pt denies Rosacea SSS (sick sinus syndrome) follows with [place] cardiology Past Family History Family History Son Esophageal reflux Brother Brain tumor Prostate cancer Unknown Nephrolithiasis Denies family history of Ovarian cancer Diabetes Myocardial infarction Breast cancer Lung cancer Colorectal cancer Hypertension Past Surgical History Surgical History H/O colonoscopy H/O shoulder surgery right- 2004, repair of rotator cuff. History of colonoscopy with polypectomy "Pre cancerous, got it all" History of left cataract surgery History of right cataract surgery History of total right hip replacement 01/20/24 Social History Smoking Status: Never smoker Do You Dip or Chew Tobacco: No Hx Alcohol Use: Yes Alcohol type: hard liquor alcohol intake frequency: a few times a week Hx Substance Use: No substance use type: does not use Testing Electrocardiogram Date: 05/23/23 Sinus rhythm with 1st degree AV block, rate 60 bpm Nonspecific intraventricular conduction delay Chest X-Ray Date: 01/16/24 No acute process. Echocardiogram Date: 06/06/23 EF 45-50% Mildly dilated LV Mild global hypokinesis of the LV Mild mitral regurgitation Mildly dilated LA
--- NOTE | 2024-03-19 15:15 | History & Physical Report ---
Date of Service March 19, 2024 Assessment & Plan (1) Osteoarthritis of left hip: We will proceed with a left anterior total of arthroplasty. Postoperatively he will be started on Eliquis for DVT prophylaxis and kept overnight for postop medical management. [facility] plans [facility] upon discharge. History of Present Illness Chief Complaint: Osteoarthritis of the left hip. Primary Care Provider: Srinath ChristiansonDO Martino is a pleasant 83-year-old male has been dealing with chronic increasing left hip pain. X-rays and clinical examination of the diagnostic for advanced osteoarthritis of the left hip. After failed conservative treatment, he has elected proceed with a left anterior total of arthroplasty. He had a right hip replacement done 2 months ago and has done well with that.. Allergies Allergy/AdvReac Type Severity Reaction Status Date / Time chlorhexidine AdvReac Intermediate Rash Verified 03/12/24 10:48 lisinopril AdvReac Intermediate cough Verified 03/12/24 10:48 morphine AdvReac Intermediate Reddened Verified 03/12/24 10:48 face/Hot flashes/Tongue swelling nebivolol [From Bystolic] AdvReac Unknown Unknown Verified 03/12/24 10:48 tamsulosin AdvReac Unknown Unknown Verified 03/12/24 10:48 Home Medications Medication Instructions Recorded Confirmed Type multivitamin (Multiple Vitamins 1 tab PO QAM 03/05/19 03/12/24 History tablet) ascorbic acid (vitamin C) 500 mg 500 mg PO QAM 11/29/20 03/12/24 History tablet (Vitamin C) cyanocobalamin (vitamin B-12) 500 500 mcg PO QAM 08/15/21 03/12/24 History mcg tablet (Vitamin B-12) polyethylene glycol 3350 17 gram 17 g PO QAM 08/15/21 03/12/24 History oral powder packet (Miralax) cholecalciferol (vitamin D3) 25 1,000 unit PO QAM 11/09/21 03/12/24 History mcg (1,000 unit) tablet (Vitamin D3) apixaban 5 mg tablet (Eliquis) 5 mg PO BID #180 tabs 05/24/22 03/12/24 Rx zinc gluconate 50 mg tablet 25 mg PO QAM 11/16/22 03/12/24 History sennosides 8.6 mg tablet (Senokot) 8.6 mg PO BID PRN constipation #30 04/04/23 03/12/24 Rx tabs dutasteride 0.5 mg capsule 0.5 mg PO DAILY 05/20/23 03/12/24 History losartan 100 mg tablet 100 mg PO QAM #90 tabs 07/11/23 03/12/24 Rx flecainide 150 mg tablet 150 mg PO BID #180 tabs 10/17/23 03/12/24 Rx tavaborole 5 % topical solution 1 applic topical DAILY 10/29/23 03/12/24 History with applicator silodosin 8 mg capsule (Rapaflo) 8 mg PO QPM #90 caps 11/21/23 03/12/24 Rx solifenacin 5 mg tablet (Vesicare) 5 mg PO QAM 01/14/24 03/12/24 History vit C 250 mg-vit E 90 mg-zinc 40 1 tab PO BID 01/14/24 03/12/24 History mg-copper 1 br-ysextn-leaqqy capsule (PreserVision AREDS-2) oxycodone 5 mg tablet 5 mg PO Q4H PRN pain #30 tabs 01/21/24 03/12/24 Rx furosemide 40 mg tablet 40 mg PO UD PRN edema #30 tabs 02/20/24 03/12/24 Rx potassium chloride 20 mEq 20 meq PO UD PRN edema #30 tabs 02/20/24 03/12/24 Rx tablet,extended release carvedilol 3.125 mg tablet 3.125 mg PO BID #60 tabs 03/12/24 03/12/24 Rx Past Med/Surg History Problem List Cardiomyopathy Osteoarthritis of left hip Status post right hip replacement (~01/2024) Lumbar disc disease with radiculopathy Arthritis of right hip Lumbar degenerative disc disease Edema of both legs 05/23/23 Impaired mobility Abnormal gait 11/16/22 Pre-diabetes Vitamin B12 deficiency Mild cognitive disorder BMI 35.0-35.9,adult (Acute) Benign localized hyperplasia of prostate with urinary obstruction Urge incontinence (Acute) Anticoagulant long-term use Paroxysmal atrial fibrillation DX 6 YR AGO / NO HX CARDIOVERSION Hypertension Medical History Neck problem limited rom. Macular degeneration early Impaired mobility History of vitamin D deficiency borderline. Mild cognitive disorder sometimes forgetful/pt reports thinks age related. No neurology dx, no neurology. pt reports wellness cognitive test upcoming sometime 2023. Pre-diabetes pt denies Lumbar degenerative disc disease steroid injection for back December 26 2023 Overactive bladder Enlarged prostate Arthritis HTN (hypertension) controlled, stable per pt History of atrial fibrillation dx approx 2013 - no hx cardioversion - [place]deg[place] History of kidney stones (~2003) Rosacea SSS (sick sinus syndrome) follows with [place] [facility]ology Surgical History History of total right hip replacement 01/20/24 History of right cataract surgery History of left cataract surgery History of colonoscopy with polypectomy "Pre cancerous, got it all" H/O shoulder surgery right- 2004, repair of rotator cuff. H/O colonoscopy Family History Son Esophageal reflux Brother Brain tumor Prostate cancer Unknown Nephrolithiasis Denies family history of Ovarian cancer Diabetes Myocardial infarction Breast cancer Lung cancer Colorectal cancer Hypertension Social History Smoking Status: Never smoker Tobacco Type: Cigarettes, Pipe and Cigars Age Started Using Tobacco: 16; Age Quit Using Tobacco: 21; packs per day: 0.25; Second Hand Exposure: No; Do You Dip or Chew Tobacco: No; Tobacco Cessation Education Requested by Patient: No Hx Alcohol Use: Yes Alcohol type: hard liquor Alcohol Intake Frequency: 2-3 x/Week Hx Substance Use: No Preferred Language: Wolof Communication Ability: Effective Visual Impairment: Partially Limited Hearing Ability: Use of Hearing Aid Inspector Firearms Required: No Beliefs That Will Affect Care: None marital status: Current Living Situation: Spouse current occupational status: employed How many Children do You have: 2 Other Information That Helps Us Care for You: No Feels Safe at Home: Yes Safety Concerns: Feels Safe At This Time Childhood Exposure to Second-Hand Smoke: No caffeine: Yes Dental Care, Regularly: Yes Physical Activity Frequency: Does not Exercise Seatbelt Use: always Sunscreen Use: Yes Assistive Devices: Walker Review of Systems All systems reviewed & are unremarkable except as noted in HPI & below. Physical Exam On physical exam of the left hip, he has decreased range of motion. He has pain with forced internal and external rotation.. Constitutional WD/WN, vitals as above Eyes PERRL, conjunctivae normal, anicteric sclerae ENMT external ear and nose normal, oropharynx normal Neck trachea midline, no thyromegaly Respiratory normal respiratory effort Cardiovascular RRR, no murmur, no edema Gastrointestinal (Abdomen) normal bowel sounds, soft, nontender, no hepatosplenomegaly Psychiatric A+Ox3, euthymic affect Results & Data Results & Data Laboratory Results . Diagnostic Findings X-rays of the left hip show advanced osteoarthritis with joint space narrowing, osteophyte formation, and [id number] articulation. PG Care Time/CCT Total # of Minutes Spent Total Time Spent with Patient: Total time spent is greater than 50% in coordination of care (as documented) at patient's floor/unit and/or counseling patient: Coding Level of Care Code None Diagnoses Osteoarthritis of left hip M16.12
[2024-03-20 05:36] LABS: Basophils # (auto) 0.04 K/uL (0.00-0.20); Eosinophils # (auto) 0.28 K/uL (0.00-0.50); Eosinophils % (auto) 6.7 %; Hematocrit (blood only) 37.4 % (42.0-52.0); Hemoglobin 11.7 g/dl (14.0-18.0); Immature Granulocytes # (auto) 0.01 K/uL (0.01-0.20); Immature Granulocytes % (auto) 0.2 %; Lymphocytes # (auto) 0.72 K/uL (1.20-3.40); Lymphocytes % (auto) 17.1 %; Mean Corpuscular Hemoglobin 29.4 pg (25.0-34.0); Mean Corpuscular Hgb Conc 31.3 g/dL (32.0-36.0); Mean Platelet Volume 9.4 fL (9.4-12.4); Monocytes % (auto) 14.3 %; Neutrophils # (auto) 2.55 K/uL (1.40-6.50); Neutrophils % (auto) 60.7 %; Platelet Count 207 K/uL (130-400); RDW Coefficient of Variation 13.6 % (11.5-14.5); Red Blood Count 3.98 M/uL (4.70-6.10)
[2024-03-20 05:58] LABS: BUN Creatinine Ratio 24.5 (10-20); Calcium 9.5 mg/dl (8.6-10.3); Creatinine Clr Calc Pharmacy 52.8 ml/min; Potassium 4.2 mmol/L (3.5-5.1)
[2024-03-20] MEDS: LR 60ML/HR IV SCH (05:58)
[2024-03-20] MEDS: ACETAMINOPHEN 500 MG TAB PO SCH ×2 (05:58→14:46)
[2024-03-20] MEDS: GABAPENTIN 300 MG CAP PO SCH (05:58)
[2024-03-20] MEDS: FAMOTIDINE 20 MG TAB PO SCH (05:58)
[2024-03-20] MEDS: dexAMETHasone**PF** 10 MG/ML VIAL IV SCH (05:59)
[2024-03-20] MEDS ORDERED: ceFAZolin 2000MG 2,000 MG/15 ML SYR IV SCH ×2 (06:00)
[2024-03-20] MEDS ORDERED: BUPIVACAINE 0.5 % 5 MG/1 ML PF 10ML VIAL ONE (06:12)
[2024-03-20] MEDS ORDERED: MIDAZOLAM HCL 1 MG/ML 2ML VIAL ONE (06:38)
[2024-03-20] MEDS ORDERED: PROPOFOL IV EMULSION 10 MG/ML 20 ML VIAL IV ONE (06:38)
--- NOTE | 2024-03-20 06:42 | History & Physical Bridge Note ---
Date of Service March 20, 2024 History & Physical Bridge Note I have examined the patient, reviewed the History & Physical and in the interval since the performance of the History & Physical I have noted the following changes of clinical significance: no changes noted
[2024-03-20 06:43] LABS: INR 1.2 (0.9-1.1); Partial Thromboplastin Time 28 Seconds (21-31); Prothrombin Time 12.9 Seconds (9.0-12.0)
[2024-03-20] MEDS: TRANEXAMIC ACID 1,000 MG **IV Pre-op IV SCH (06:51)
[2024-03-20] MEDS: ceFAZolin 3000MG/72.5 ML BAG IV ONE (06:59)
[2024-03-20] MEDS: ROPIV 0.5% 246mg, Ketorolac 30mg, EPINEPHrine 0.5mg in NSS INFIL SCH (07:26)
[2024-03-20] MEDS ORDERED: PHENYLEPHRINE 100MCG/ML 10ML SYR IV ONE (07:32)
[2024-03-20] MEDS ORDERED: ONDANSETRON INJ 2 MG/ML 2 ML VIAL ONE (07:32)
[2024-03-20] MEDS ORDERED: ONDANSETRON INJ 2 MG/ML 2 ML VIAL IV PRN ×2 (07:36→10:03)
[2024-03-20] MEDS ORDERED: fentaNYL citrate PF 100 MCG/2 ML VIAL IV PRN (07:36)
[2024-03-20] MEDS ORDERED: ePHEDrine sulfate 50 MG/ML AMP IV PRN (07:36)
[2024-03-20] MEDS ORDERED: ATROPINE SULFATE 0.1 MG/ML 10ML SYR IV PRN (07:36)
[2024-03-20] MEDS: TRANEXAMIC ACID 1,000 MG **IV Intra-op IV SCH (08:04)
--- NOTE | 2024-03-20 08:10 | Operative Report ---
PG Post Operative Report Pre & Post Diagnosis Operation Date: 03/20/24 07:00 Pre-Op Diagnosis: Left Hip Arthritis Post-Op Diagnosis: Left Hip Arthritis I identified the patient and participated in the time-out.: Yes Procedure Operation Date: 03/20/24 07:00 Actual Procedures p Left Anterior Total Hip Arthroplasty(Left) - Srinath Saez DO Surgeon Srinath Saez DO Leasing Sales Consultant Srinath Chaudhary PA-C Estimated Blood Loss 300 Findings Consistent with Post-Op Diagnosis Specimens Left femoral head Description of Procedure Implants used I used a ZimmerBiomet total hip arthroplasty system with a size 7 standard Avenir Complete stem, a 54 mm G7 cup with a 25mm screw, an E1 polyethylene liner, a 40 mm ceramic head with a +3.5 neck. Gunner arrived at the hospital for the above procedure. She was seen in the preoperative holding area and the operative extremity was identified and signed. She was given a spinal anesthetic, a preoperative antibiotic, and TXA. She was then taken back to the operating room and laid on the table in the supine position. She was given basic sedation. The operative leg was secured to a Rust istst leg positioner. The hip was then prepped and draped in sterile fashion. A timeout was done and the patient and the operative extremity was properly identified. An anterior approach was used. Dissection was taken down through the fascia and the tensor muscle belly was retracted laterally and the rectus was retracted medially. The circumflex vessels were identified and ligated. The capsule was then incised and tagged for later repair. The femoral neck was then cut and the femoral head was removed. The acetabulum was exposed. Time was spent doing a complete circumferential labral release. Sequential reaming of the acetabulum up to a size 53 reamer was done. Final reamings were done under fluoroscopy to ensure appropriate version. A Biomet 54 mm G7 cup was then impacted into place. A single 25 mm screw was placed. The E1 polyethylene liner was then snapped into place. Surrounding soft tissues were then injected with 100 cc of an orthopedic pain control cocktail. The proximal femur was then exposed. Sequential broaching up to a size 7 broach was done. Off that broach a size 40 head with a +3.5 neck was trialed. The hip was reduced and fluoroscopic images showed anatomic alignment of the implants in acceptable length. The broach was removed. The final size 7 standard offset Avenir Complete stem was then impacted into place. A ceramic 40 mm head with a +3.5 neck was then impacted onto the stem and the hip was reduced. Final fluoroscopic images showed anatomic alignment of the hip. The capsule was then closed with #1 Vicryl suture. A dilute betadyne lavage was then done for 3 minutes. The joint was then irrigated with normal saline solution. The fascia was closed with #1 PDS suture. Skin was closed with 2-0 Vicryl, ana, and a Silverlon dressing. She was then transferred to a hospital bed and taken to the post anesthesia care unit in stable condition. She tolerated the procedure well. Srinath Chaudhary PA-C, was present for the entire procedure. He was critical for patient positioning, prepping, draping, retraction exposure, wound closure and application of sterile dressing. I attest to the content of the Intraoperative Record and any orders documented therein. Any exceptions are noted below.
--- NOTE | 2024-03-20 09:04 | Fluoroscopy Report ---
FL hip LT 1V CLINICAL HISTORY: LEFT ANTERIOR HIPleft hip arthroplasty COMPARISON STUDY: Pelvis and hip radiographs of same day FLUOROSCOPY TIME: 10.9 seconds FLUOROSCOPY IMAGES: 2 EXPOSURE DOSE: 3.1393 mGy FINDINGS: Satisfactory alignment of the left hip arthroplasty. No acute fracture. Hemostats project o suly the midline pelvis, likely external to the patient. IMPRESSION: Fluoroscopic assistance as above. ACT 112: Negative or not required by law. Electronically signed by: Xu Hutchison M.D. 03/20/2024 9:02 AM
--- NOTE | 2024-03-20 09:43 | Anesthesiology Progress Note ---
Date of Service March 20, 2024 Anesthesia Post Procedure Vital Signs Vital Signs: Temp Pulse Pulse Resp BP Pulse Ox O2 Del Method 03/20/24 09:30 87 19 134/73 92 Room Air 03/20/24 09:20 79 14 145/93 H 94 Room Air 03/20/24 09:10 78 14 148/84 H 94 Room Air 03/20/24 09:00 78 17 116/78 98 Room Air 03/20/24 08:50 79 19 127/84 98 Room Air 03/20/24 08:40 75 22 138/78 100 Oxymask 03/20/24 08:34 36.0 C L 81 17 127/74 100 Oxymask 03/20/24 05:33 37 C 84 18 151/98 H 98 Room Air O2 Flow Rate 03/20/24 09:30 03/20/24 09:20 03/20/24 09:10 03/20/24 09:00 03/20/24 08:50 03/20/24 08:40 4 03/20/24 08:34 4 03/20/24 05:33 Transfer of Care Handoff Completed per policy Notes Mental Status: alert / awake / arousable and participated in evaluation Patient Amnestic to Procedure: Yes Nausea / Vomiting: adequately controlled Pain: adequately controlled Airway Patency, RR, SpO2: stable & adequate BP & HR: stable & adequate Hydration State: stable & adequate Neuraxial Anesthesia: was administered and sensory block is resolving Anesthetic Complications: no major complications apparent and Pt Satisfied with anesthetic care
[2024-03-20] MEDS ORDERED: HYDROmorphone INJ 0.5 MG/0.5 ML SYR IV PRN (10:03)
[2024-03-20] MEDS ORDERED: bisacodyL 10 MG SUPP PR PRN (10:03)
[2024-03-20] MEDS ORDERED: SENNA 8.6 MG TAB PO PRN (10:03)
[2024-03-20] MEDS ORDERED: NON-FORMULARY MEDICATION (Vit C,E-Zn-Coppr-Lutein-Zeaxan [Preservision Areds-2] 250-90-40- PO SCH (10:03)
[2024-03-20] MEDS ORDERED: METOCLOPRAMIDE HCL INJ 5 MG/ML 2 ML VIAL IV PRN (10:03)
[2024-03-20] MEDS ORDERED: NALOXONE HCL 0.4 MG/1 ML VIAL/CARP IV PRN (10:03)
[2024-03-20] MEDS ORDERED: NON-FORMULARY MEDICATION (Zinc Gluconate 50 mg tablet) PO SCH (10:03)
[2024-03-20] MEDS ORDERED: FUROSEMIDE 40 MG TAB PO PRN (10:03)
[2024-03-20] MEDS ORDERED: MAGNESIUM HYDROXIDE SUSP 30 ML UDC PO PRN (10:03)
[2024-03-20] MEDS: ceFAZolin 3000MG 3,000 MG/72.5 ML BAG IV SCH (10:21)
[2024-03-20] MEDS: ORTHO JOINT ANESTHETIC ONE (10:21)
[2024-03-20] MEDS: SODIUM CHLORIDE 0.9% 1,000 ML IV SCH (10:30)
--- NOTE | 2024-03-20 10:41 | XRay Report ---
XR hip 1V LT w pelvis CLINICAL HISTORY: IN PACU - Post Surgical TECHNIQUE: 1 view of the left hip and single frontal view of the pelvis were obtained. Comparison: Comparison is made to hip radiograph 02/10/2024 FINDINGS: Patient is status post total hip arthroplasty with expected postsurgical changes including soft tissu e swelling and subcutaneous emphysema. Right hip arthroplasty is unchanged. IMPRESSION: Expected postoperative appearance status post placement of total hip arthroplasty. ACT 112: Negative or not required by law. Electronically signed by: Ronnie Dillon M.D. 03/20/2024 10:39 AM
[2024-03-20] MEDS: carvediloL 3.125 MG TAB PO SCH (11:08)
[2024-03-20] MEDS: LOSARTAN POTASSIUM 50 MG TAB PO SCH (11:08)
[2024-03-20] MEDS: DOCUSATE SODIUM 100 MG CAP PO SCH (11:08)
[2024-03-20] MEDS: MULTIVITAMIN TAB PO SCH (11:08)
[2024-03-20] MEDS: FLECAINIDE ACETATE 100 MG TABLET PO SCH (11:11)
[2024-03-20] MEDS: APPLICATOR TOP SCH (11:35)
[2024-03-20] MEDS: [UNRECOGNIZED DRUG - OTHER] TOP SCH (11:35)
--- OUTSIDE RECORDS SUMMARY | 2024-03-20 14:35 | External Medical Summary | Continuity of Care Document ---
Author Name Unknown Organization [id number] Address [address] [place] [phone] Care Team Providers Care Proj Mgr Name Role Phone Srinath Christianson Primary Care Physician [phone] Encounter [facility] [id number] Date(s): 03/10/24 - 03/10/24 [facility] [address] [facility] [address] [place] [id number] Encounter Diagnosis Tinea pedis of both feet(Discharge Diagnosis) - 03/10/24 Tinea unguium(Discharge Diagnosis) - 03/10/24 Discharge Disposition: Home or Self Care Attending Physician: LUCIUS Alarcon Christina L Referring Physician: DO Christianson Brian R Allergies, Adverse Reactions, Alerts Substance Criticality Severity Reaction Reaction Severity Status morphine Swelling Active Assessment and Plan Extracted from: Title:Follow Up Visit Author:LUCIUS Alarcon, Jacky Plascencia Date:03/10/24 1.Tinea pedis of both feet I have reviewed liver panel from March 06 that showsto be all within normal limits GGT ordered today to further assess. If within normal limits we will send 3 months of oral Lamisil in the interim time patient should continue the topical antifungalto the skin and should continue the Kerydin to the toenails he was not need of any further refills of either but may call our office for any refills. Again once GGT reviewed if within normal limits we will send oral Lamisil. Recommend follow-up in 4 months. I spent 5 minute planning including prepping note and chart review. I spent 12 minute ocpl-uw-[id number] interaction with patient addressing issuesdiscussed in visit today. I spent 5 minute time in postop visitplanning including note finishing in depart process. Total time spent on patient visit 22 minutes. 2.Tinea unguium Medications amLODIPine 5 mg oral tablet Start: 05/05/18 7:51:00 AM EST, 1 tab, PO, Daily Start Date: 05/05/18 Status: Ordered Avodart 0.5 mg oral capsule Start: 01/22/22 1:56:00 PM EDT, 1 cap, PO, Daily Start Date: 01/22/22 Status: Ordered ciclopirox 0.77% topical cream Start: 09/19/22 9:22:00 AM EDT, 1 appl, topical, bid, Disp# 30 g, Refills: 1, To rash on right hip BID, Pharmacy: [facility] Start Date: 09/19/22 Status: Ordered Cozaar 100 mg oral tablet Start: 01/22/22 1:57:00 PM EDT, 1 tab, PO, Daily Start Date: 01/22/22 Status: Ordered Econazole Nitrate 1% topical cream Start: 07/02/23 10:27:00 AM EST, 1 appl, topical, bid, Disp# 85 g, Refills: 3, Pharmacy: [facility] Start Date: 07/02/23 Status: Ordered Eliquis 5 mg oral tablet Start: 09/27/20 10:29:00 AM EDT, 1 tab, PO, bid Start Date: 09/27/20 Status: Ordered flecainide 100 mg oral tablet Start: 10/10/12 1:34:00 PM EDT, 1 tab, PO, q12h Start Date: 10/10/12 Status: Ordered KERAESSENTIALS Start: 02/07/23 9:06:00 AM EDT, KERAESSENTIALS Start Date: 02/07/23 Status: Ordered LamISIL 250 mg oral tablet Start: 03/12/24 9:40:00 AM EDT, 1 tab, PO, Daily, Disp# 90 tab, Refills: 0, Take 1 pill/day for 3-month, [facility] Start Date: 03/12/24 Stop Date: 06/10/24 Status: Ordered Penlac Nail Lacquer 8% topical solution Start: 02/27/22 9:52:00 AM EDT, 1 appl, topical, Daily, Disp# 6.6 mL, Refills: 4, Pharmacy: [facility] Start Date: 02/27/22 Stop Date: 06/16/24 Status: Ordered Rapaflo 8 mg oral capsule Start: 09/20/14 4:27:00 PM EDT Start Date: 09/20/14 Status: Ordered Tavaborole 5% topical solution Start: 03/12/24 8:24:00 AM EDT, See Instructions, Disp# 10 mL, Refills: 4, APPLY TO AFFECTED TOENAILS ONCE PER DAY FOR 6 MONTHS, Pharmacy: [facility] Start Date: 03/12/24 Status: Ordered triamcinolone/Aveeno cmpd Start: 06/26/19 9:31:34 AM EST, triamcinolone/Aveeno cmpd, eRx Product Type: Compound, 1 appl, topical, bid, Disp# 120 g, Refills: 3, PRN: Itching, apply as needed for itching, Note to Pharmacy: mix equal parts triamcinolone 0.1% cream and Aveeno anti-itch lotion, then add 0.25% menthol to make 120 g, Pharmacy [facility] Start Date: 06/26/19 Status: Ordered VESIcare 5 mg oral tablet Start: 01/22/22 1:57:00 PM EDT, 1 tab, PO, Daily Start Date: 01/22/22 Status: Ordered Mental Status 03/10/24 Barriers to Learning one year None evide nt Mandatory Health Literacy Documentation Yes Health Literacy Communication Barriers N ever Primary Language Azeri Problem List Condition Confirmation Course Effective Dates Status H ealth Status Informant 1+ pitting edema Confirmed Active Actinic keratosis Confirmed Active Afib Confirmed Active AK (actinic keratosis) Confirmed Active Xerosis of skin Confirmed Active BPH (benign prostatic hypertrophy) Confirmed Active HTN (hypertension) Confirmed Active Tinea unguium Confirmed Active Onychomycosis of toenail Confirmed Active Tinea corporis Confirmed Active Tinea pedis of both feet Confirmed Active Urticaria Confirmed Active Diagnosis Diagnosis Type Effective Dates Health Status Cl inical Service Informant Tinea pedis of both feet Discharge Diagnosis 03/10/24 Non-Specified Tinea unguium Discharge Diagnosis 03/10/24 Non-Specified Procedures Procedure Date Related Diagnosis Body Site Status Shave biopsy and cauterisati on of skin 1 06/24/17 Completed Shave biopsy Completed Surgery Completed 1ED&C Vital Signs Most recent to oldest [Reference Range]: 1 Height 176.9 cm (03/10/24 10:07 AM) Patient Weight 122.2 kg (03/10/24 10:07 AM) Body Mass Index 39.05 kg/m2 (03/10/24 10:07 AM) Social History Social History Type Response Smoking Status Never smoked cigaret sravanthi Sex Male Sex Representation Male (finding) Ortho Outpt Note * LUCIUS Alarcon Christina L: PERFORM Event Display: Ortho Outpt Note Authored Date: [id number] Chief Complaint b/l colin lfungus follow-up, pt doesn't think it's any better Primary Care Provider DO Christianson Brian R Subjective Patient is a very pleasant 83-year-old male presenting today for follow- uphistory of toenail fungus,he was prescribed oral Lamisil in the past by dermatologyhe was using ciclopirox and I changed that to Kerydin, and he has been using Kerydin since about last Februaryhe was last seen September 08 and he was not seeing any significant improvementI also appreciated a small flareup in his athlete's foothe does useeconazole for his flareups oftinea pedis prescribed by dermatology. -Patient notes he is continuing to have little progress still having a flareup on the right foot ofhis tinea pedishe notes he is still using the topical antifungal prescribed by dermatologybut is open to oral Lamisil because there is still ongoing issues with the nails and skin. Review of Systems No pertinent positives Objective Vitals & Measurements WT:122.200kg(Dosing) WT:122.2kg Physical Exam Problem focused bilateral feet: Dorsalispedis pulse palpable1 out of 4, posterior tibial pulse palpable 1 out of 4capillary refill time less than 3 seconds skin turgor is good to all digits of both feet pedal hair is noted lanie absent. Neurovascular status grossly intact to all digits of both feet. Significant dryness plantar feetwith peeling noted in interspaces2 through 4 bilateral feet consistent with tinea pedisrecommend to continue antifungal topical but also will add an oral Lamisilpatient had liver panel performed March 06 which was within normal limitsGGT additionally ordered today. Toenails of digits 1 through 5 both feethave had improvement I do appreciate that both bilateral hallux toenails have been most severely affectedthere continues to be dystrophy and yellow discoloration. Clinical photo in chart. Images 2024-03-10 10:14:09 2024-03-10 10:14:17 Assessment/Plan 1.Tinea pedis of both feet I have reviewed liver panel from March 06 that showsto be all within normal limits GGT orderedtoday to further assess. If within normal limits we will send 3 months of oral Lamisil in the interim time patient should continue the topical antifungalto the skin and should continue the Kerydin to the toenails he was not need of any further refills of either but may call our office for any refills. Again once GGT reviewed if within normal limits we will send oral Lamisil. Recommend follow-up in 4 months. I spent 5 minute planning including prepping note and chart review. I spent 12 [id number] interaction with patient addressing issuesdiscussed in visit today. I spent 5 minute time in postop visitplanning including note finishing in depart process. Total time spent on patient visit 22 minutes. 2.Tinea unguium Electronic Signature on File Electronically Reviewed/Signed by: Aracely Alarcon DPM Author Signature Dt/Tm:03/10/2024 10:26 AM Division of Sports Medicine CLR Patient Care team information Care Team Personnel Name: DO Christianson Brian R Position: Referring Member Role: Primary Care Provider Address: [address] [place] [address] [place] Care Team Related Persons Name: HENNY FAUSTIN
[2024-03-20] MEDS: ceFAZolin 2000MG 2,000 MG/15 ML SYR IV SCH (15:20)
[2024-03-20] MEDS: SENNA 8.6 MG TAB PO SCH (20:20)
[2024-03-20] MEDS: oxyCODONE HCL IR 5 MG TAB (IMMEDIATE RELEASE) PO PRN (23:57)
[2024-03-21] MEDS: APIXABAN 5 MG TABLET PO SCH (08:33)
[2024-03-21] MEDS: dexAMETHasone 4 MG TAB PO SCH (08:34)
[2024-03-21] MEDS: FINASTERIDE 5 MG TAB PO SCH (08:34)
[2024-03-21] MEDS: OXYBUTYNIN CHLORIDE XL 5 MG TABCR PO SCH (08:35)
[2024-03-21] MEDS: POTASSIUM CHLORIDE CRTAB 20 MEQ TABCR PO PRN (08:38)
--- NOTE | 2024-03-21 09:53 | Orthopedic Progress Note ---
Date of Service March 21, 2024 Assessment & Plan (1) Status post left hip replacement: Overall he is doing fairly well. He has some soreness in his left hip but is not too bad. He will be seen by physical therapy today for ambulation and range of motion exercises. He is on Eliquis for DVT prophylaxis. We will keep him in the hospital today for physical therapy and pain control. We hope to discharge him tomorrow. Savage Martino was seen and examined at bedside this morning. Overall he is doing fairly well. He has been up and ambulating some but he says he is stabbing a little bit more soreness of his left hip than he remembers having on his right. He had no acute events overnight.. Review of Systems All systems reviewed & are unremarkable except as noted in HPI & below. Physical Exam Physical examination of the left hip shows the dressing to be clean and dry. His leg is out full extension. He has active dorsiflexion plantarflexion of the left ankle.. Results & Data Results & Data Laboratory Results . Diagnostic Findings Postoperative x-rays of the left hip show the prosthesis to be in anatomic alignment without any evidence of fracture complication, or loosening.. PG Care Time/CCT Total # of Minutes Spent Total Time Spent with Patient: Total time spent is greater than 50% in coordination of care (as documented) at patient's floor/unit and/or counseling patient: Coding Level of Care Code 72259 Post Operative Follow-Up Diagnoses Status post left hip replacement Z96.642
--- NOTE | 2024-03-22 08:30 | Orthopedic Progress Note ---
Date of Service March 22, 2024 Assessment & Plan (1) Status post left hip replacement: Overall he is doing fairly well. Is not having too much pain in the left hip. He will be seen by physical therapy today for ambulation and range of motion exercises. The plan is for him to be discharged to the [facility] tomorrow. He is on Eliquis for DVT prophylaxis. Savage Martino was seen and examined at bedside this morning. Overall he is doing okay. He said a little better today. He still having a lot of soreness in it. He has been doing well with physical therapy. He has no complaints.. Review of Systems All systems reviewed & are unremarkable except as noted in HPI & below. Physical Exam On physical examination of the left hip, the dressing is clean and dry. He has active dorsiflexion plantarflexion of his left ankle.. Results & Data Results & Data Laboratory Results . Diagnostic Findings . PG Care Time/CCT Total # of Minutes Spent Total Time Spent with Patient: Total time spent is greater than 50% in coordination of care (as documented) at patient's floor/unit and/or counseling patient: Coding Level of Care Code 92405 Post Operative Follow-Up Diagnoses Status post left hip replacement Z96.642
[2024-03-22 14:38] VITALS: RESP 16
[2024-03-22 20:23] VITALS: O2SAT 98
[2024-03-23 07:05] VITALS: PULSE 75; TEMP 97.3
--- NOTE | 2024-03-23 08:58 | Orthopedic Progress Note ---
Date of Service March 23, 2024 Assessment & Plan (1) Status post left hip replacement: Overall he is doing as well as expected. His pain is well-controlled. He can be seen by physical therapy today for ambulation and range of motion exercises. He is on Eliquis for DVT prophylaxis. He can be discharged to rehab later today. He will follow-up with orthopedics in 2 weeks. Savage Martino was seen and examined at bedside this morning. Overall is doing very well. He is not having too much pain in the left hip. He thinks his hip is a little bit more sore than his other 1 was at this time but functionally he is doing fine. He has no other complaints.. Review of Systems All systems reviewed & are unremarkable except as noted in HPI & below. Physical Exam On physical exam the left hip, the dressing is clean and dry. His leg is out full extension. He has active dorsiflexion plantarflexion of his left ankle.. Results & Data Results & Data Laboratory Results . Diagnostic Findings . PG Care Time/CCT Total # of Minutes Spent Total Time Spent with Patient: Total time spent is greater than 50% in coordination of care (as documented) at patient's floor/unit and/or counseling patient: Coding Level of Care Code 83244 Post Operative Follow-Up Diagnoses Status post left hip replacement Z96.642
--- NOTE | 2024-03-23 08:59 | Discharge Summary ---
Date of Service March 23, 2024 Admission HPI (Per Admitting) Gunner is a pleasant 83-year-old male has been dealing with chronic increasing left hip pain. X-rays and clinical examination of the diagnostic for advanced osteoarthritis of the left hip. After failed conservative treatment, he has elected proceed with a left anterior total of arthroplasty. He had a right hip replacement done 2 months ago and has done well with that.. Admission Exam (Per Admitting) On physical exam of the left hip, he has decreased range of motion. He has pain with forced internal and external rotation.. Principal Diagnosis Same as "Discharge Diagnosis" noted below under Discharge Instructions. Discharge Exam On physical exam the left hip, the dressing is clean and dry. His leg is out full extension. He has active dorsiflexion plantarflexion of his left ankle.. Discharge Data Procedures Performed Operation Date: 03/20/24 07:00 Actual Procedures p Left Anterior Total Hip Arthroplasty(Left) - Srinath Saez DO Ordered Studies 03/20/24 07:00 FL hip LT 1V Routine Hospital Course (1) Status post left hip replacement: On March 20, 2024 Gunner arrived at [facility] and underwent a right hip replacement without complication. It a spinal anesthetic. Postoperatively he was started back on Eliquis for DVT prophylaxis and transferred to the general orthopedic floors. His hospital course was relatively uneventful. On postop day #1, his vital signs were stable and his pain was well-controlled. He was able to participate well with physical therapy doing ambulation and range of motion exercises. On postop day #2 he continued to do fairly well. He worked well with physical therapy. He was awaiting p lacement at the formerly [facility]. On postop day #3, he was doing well and his vital signs are stable. He was then discharged to the [facility]. He will follow-up with orthopedics in 2 weeks. PG Care Time/CCT Total # of Minutes Spent Total Time Spent with Patient: Total time spent is greater than 50% in coordination of care (as documented) at patient's floor/unit and/or counseling patient: Discharge Plan Discharge Items Patient Disposition: Home - Self-Care Reason For Visit: Left Hip Arthritis Discharge Diagnosis: Left hip replacement Activity: Per Instructions section Non-emergency contact: Surgeon Call non-emergency contact if: your wound has increased redness and your wound has increased drainage Follow-up/Referrals: Srinath Christianson DO [Primary Care Provider] - Diet: Regular Addtl Attending Provider Instructions: Activity and Therapy Recommendations: * If you are using [facility] then therapy will be provided at your home until they feel you have accomplished all of your goals. * If you are using [facility] then Physical Therapy will be provided until they feel you are ready to start Outpatient Physical Therapy. * If you are not using home therapy then Outpatient Physical Therapy should start about 3-5 days from your day of surgery. Therapy will last about 6-10 weeks * You were shown a series of exercises in the hospital. Do these exercises three times each day including the exercises you were shown in physical therapy. * Get up and walk several times each day.~ For the first four weeks, try not to stand or walk for more than one hour at a time. If you do stand or walk for more than one hour, you will not hurt anything, but your leg will likely swell.~~ * As you feel comfortable, you may change from the walker or crutches to a cane and~then to independent walking. Medications: * Narcotic You will likely be sent home from the hospital with a prescription for the narcotic pain medication that worked best throughout your stay. * Cefadroxil -take the antibiotic twice a day for 10 days to help prevent infection. * Continue taking your Eliquis as prescribed. * Other medications may be prescribed for specific circumstances. If you have any questions, please call the office at . * Resume previous home medications unless otherwise instructed TEDs/Elastic Stockings: The white elastic stockings help limit swelling and prevent blood clots from forming in your legs. The more you wear them, the more they work. Wear them for six weeks. Dressing Care: Leave the Silverlon dressing in place for 7 days. After 7 days you may remove the dressing. If the incision is not draining then you may leave the ana open to air. If there is a little bit of drainage or if the ana are getting stuck on your clothing then cover the incision with a dry dressing. The ana will be removed at your 2 week follow-up appointment. Showering: You may shower with the Silverlon dressing in place. Do not let the shower spray hit the dressing directly. Pat the Silverlon dressing dry. If the dressing becomes wet underneath, then simply remove the dressing. Keep the incision dry until you are 7 days out from the day of surgery. After 7 days you may remove the Silverlon dressing and shower with the ana exposed. Let soapy water run over the ana and pat them dry. Do not scrub or soak the incision. Diet: You may resume your previous diet. Things To Watch For: * Drainage from the incision site that occurs more than one week after your surgery. * Increased redness at the incision site. * Fever above 102 degrees Fahrenheit. * Unusual chest pain or shortness of breath. * Call [facility] at with any of the above problems Follow-Up Visit: Follow-up with Dr. Saez's PA (Srinath Chaudhary) 2-3 weeks after your day of surgery. He will remove your ana and answer any questions. If you have any additional questions or concerns, Dr Saez is usually in the office at the same time and will be available An appointment was probably scheduled when you signed-up for surgery in the office. If you have any questions call Office Instructions: More detailed instructions as well as Frequently Asked Questions were provided in a folder by our office when you signed-up for surgery. Please review these instructions when you get home. If you have any further questions or concerns, please feel free to call the office at [phone] Pending Studies at Discharge: No Stand-Alone Forms: My [facility], Smoking Cessation Medications and DC Order Prescriptions: New oxycodone 5 mg Tablet 5 mg PO Q4H PRN (Reason: pain) Qty: 30 0RF cefadroxil 500 mg capsule 500 mg PO BID 10 Days Qty: 20 0RF Continued Eliquis 5 mg tablet 5 mg PO BID Qty: 180 3RF losartan 100 mg tablet 100 mg PO QAM Qty: 90 3RF flecainide 150 mg tablet 150 mg PO BID Qty: 180 3RF Rx Instructions: TAKE 1 TABLET BY MOUTH EVERY 12 HOURS silodosin [Rapaflo] 8 mg capsule 8 mg PO QPM Qty: 90 1RF dutasteride 0.5 mg capsule 0.5 mg PO DAILY multivitamin [Multiple Vitamins] tablet 1 tab PO QAM zinc gluconate 50 mg tablet 25 mg PO QAM carvedilol 3.125 mg tablet 3.125 mg PO BID Qty: 60 2RF Rx Instructions: must administer with a meal/food tavaborole 5 % solution with applicator 1 applic topical DAILY furosemide 40 mg tablet 40 mg PO UD PRN (Reason: edema) Qty: 30 0RF Rx Instructions: Take with potassium supplement (20 meq) potassium chloride 20 mEq tablet extended release 20 meq PO UD PRN (Reason: edema) Qty: 30 0RF ascorbic acid (vitamin C) [Vitamin C] 500 mg Tablet 500 mg PO QAM cholecalciferol (vitamin D3) [Vitamin D3] 25 mcg (1,000 unit) tablet 1,000 unit PO QAM sennosides [Senokot] 8.6 mg tablet 8.6 mg PO BID PRN (Reason: constipation) Qty: 30 0RF cyanocobalamin (vitamin B-12) [Vitamin B-12] 500 mcg Tablet 500 mcg PO QAM Patient Comments: YOU CAN CHEW IT BUT I JUST SWALLOW IT polyethylene glycol 3350 [Miralax] 17 gram Powder In Packet 17 g PO QAM Patient Comments: MOSTLY EVERY MORNING PreserVision AREDS-2 250-90-40-1 mg Capsule 1 tab PO BID solifenacin [Vesicare] 5 mg tablet 5 mg PO QAM oxycodone 5 mg Tablet 5 mg PO Q4H PRN (Reason: pain) Qty: 30 0RF Discharge Orders: Discharge Order (Routine); Ordered 03/23/24 Ordered By: Srinath Saez Admission Data Admit Date/Time: 03/22/24 08:30 Attending Provider: Srinath Saez Admit Provider: Srinath Saez Primary Care Provider: Srinath Christianson
[2024-03-23 09:47] VITALS: BP 152/81
== END 2024-03-23 11:00 | DRG 470 ==
LOC: ASU 05:06 → 3N 05:06

== ENCOUNTER 2024-04-01 21:03 | Inpatient (IN) ==
--- NOTE | 2024-04-01 21:26 | Emergency Department Note ---
Impression & Plan Acute pain of left hip, Post-operative pain ED Provider Note NAME: HILARIO FAUSTIN AGE: 83 SEX: M : 1940 ARRIVES VIA: Ambulance INFORMANT: Patient, ED PROVIDER(S): Chuck Hickey DO CHIEF COMPLAINT: Hip check HPI: The patient is an 83-year-old male who recently had his left hip replaced who presented to the emergency department requesting an x-ray of his hip. The patient went to sit down on a stool. The patient states there was a blanket on his stool and he slid off the blanket. He did not fall. He denies having any pain. He denies having striking his head. He has noticed some swelling in his lower extremities ever since the surgery in January but he does take oral anticoagulants. He denies having any chest pain or difficulty breathing. The patient was told if he had a similar episode he should go directly to the emergency department for a check of his hip since he recently had surgery. ROS: See above HPI for pertinent positives & negatives. A total of 10 systems reviewed and were otherwise negative. PAST MEDICAL HISTORY: See Below PAST SURGICAL HISTORY: See Below FAMILY HISTORY: See Below SOCIAL HISTORY: See Below HOME MEDICATIONS: See Below ALLERGIES: See Below VITALS: See Below PHYSICAL EXAMINATION: GENERAL: Patient is awake alert in no acute distress patient is resting comfortably and showing no signs of anxiety EYES: The conjunctivae are clear. The pupils are round and reactive. EARS, NOSE, MOUTH AND THROAT: The nose is without any evidence of any deformity. NECK: The neck is nontender and supple. RESPIRATORY: Normal respiratory effort is noted there is no evidence of wheezing rhonchi or rales CARDIOVASCULAR: Regular rate and rhythm noted there no murmurs rubs or gallops normal S1 normal S2. GASTROINTESTINAL: The abdomen is soft. Abdomen is nontender. MUSCULOSKELETAL/EXTREMITIES: There is no evidence of gross deformity full range of motion is noted in the hips and shoulders. SKIN: Chronic venous stasis changes were noted to both lower extremities. Skin was warm and dry. NEUROLOGIC: Patient is awake alert and oriented x3 MEDICAL DECISION MAKING: The patient is an 83-year-old male who presented to the emergency department for an evaluation of left hip pain. The patient had a near fall where he did not necessarily injure his left hip that he was concerned because he does have some pain in the hip postoperatively. The patient requested x-rays. The patient's x-rays did not reveal any acute fracture or dislocation. The patient's wound appears to be healing well on the lateral left hip. There was Steri-Strips in place with no erythema drainage or dehiscence. I discussed patient's radiographic studies with him. He continues to have pain with ambulation. His family is concerned that he is starting to worsen and there as needed he can be readmitted to inpatient rehab. I discussed the patient's condition with the emergency department business case analyst. They feel the patient would require inpatient management evaluation and then referral for inpatient rehab. For this reason I discussed patient's condition with the [facility] hospitalist. Triage Nursing notes reviewed. Prior medical records reviewed Vital Signs: reviewed and remarkable for no significant abnormalities Differential diagnosis: Fracture, subluxation, dislocation, contusion, ligamentous injury, neurovascular, compartment syndrome, rhabdomyolysis, as well as other pathologies. ER treatment provided: See below Diagnostics interpreted by me: ECG: none Cardiac Monitoring: An order was placed for continuous cardiac monitoring. The monitor shows a rate of 86 bpm with sinus rhythm. Laboratory studies: As stated above and show below. Imaging studies: See below. Radiographic imaging was reviewed by myself Consultation(s): I discussed this case with Dr. Hopkins who is on-call for the [facility]. Past Med/Surg History Problem List (Updated 04/01/24 @ 22:41 by Chuck Hickey DO) Post-operative pain (Acute) Acute pain of left hip (Acute) Status post left hip replacement (~03/2024) Cardiomyopathy Osteoarthritis of left hip Status post right hip replacement (~01/2024) Lumbar disc disease with radiculopathy Arthritis of right hip Lumbar degenerative disc disease Edema of both legs 05/23/23 Impaired mobility Abnormal gait 11/16/22 Pre-diabetes Vitamin B12 deficiency Mild cognitive disorder BMI 35.0-35.9,adult (Acute) Benign localized hyperplasia of prostate with urinary obstruction Urge incontinence (Acute) Anticoagulant long-term use Paroxysmal atrial fibrillation DX 6 YR AGO / NO HX CARDIOVERSION Hypertension Medical History Neck problem limited rom. Macular degeneration early Impaired mobility History of vitamin D deficiency borderline. Mild cognitive disorder sometimes forgetful/pt reports thinks age related. No neurology dx, no neurology. pt reports wellness cognitive test upcoming sometime 2023. Pre-diabetes pt denies Lumbar degenerative disc disease steroid injection for back December 26 2023 Overactive bladder Enlarged prostate Arthritis HTN (hypertension) controlled, stable per pt History of atrial fibrillation dx approx 2013 - no hx cardioversion - [place] History of kidney stones (~2003) Rosacea SSS (sick sinus syndrome) follows with [facility] Surgical History History of total right hip replacement 01/20/24 History of right cataract surgery History of left cataract surgery History of colonoscopy with polypectomy "Pre cancerous, got it all" H/O shoulder surgery right- 2004, repair of rotator cuff. H/O colonoscopy Family History Son Esophageal reflux Brother Brain tumor Prostate cancer Unknown Nephrolithiasis Denies family history of Ovarian cancer Diabetes Myocardial infarction Breast cancer Lung cancer Colorectal cancer Hypertension Social History Smoking Status: Never smoker Tobacco Type: Cigarettes, Pipe and Cigars Age Started Using Tobacco: 16; Age Quit Using Tobacco: 21; packs per day: 0.25; Second Hand Exposure: No; Do You Dip or Chew Tobacco: No; Hx Alcohol Use: Yes Alcohol type: hard liquor Alcohol Intake Frequency: 2-3 x/Week Hx Substance Use: No Preferred Language: Vietnamese Communication Ability: Effective Visual Impairment: Partially Limited Hearing Ability: Use of Hearing Aid 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 Required: No Beliefs That Will Affect Care: None marital status: Current Living Situation: Spouse current occupational status: employed How many Children do You have: 2 Feels Safe at Home: Yes Childhood Exposure to Second-Hand Smoke: No caffeine: Yes Dental Care, Regularly: Yes Physical Activity Frequency: Does not Exercise Seatbelt Use: always Sunscreen Use: Yes Assistive Devices: Walker Allergies Allergies Allergy/AdvReac Type Severity Reaction Status Date / Time chlorhexidine AdvReac Intermediate Rash Verified 03/12/24 10:48 lisinopril AdvReac Intermediate cough Verified 03/12/24 10:48 morphine AdvReac Intermediate Reddened Verified 03/12/24 10:48 face/Hot flashes/Tongue swelling nebivolol [From Bystolic] AdvReac Unknown Unknown Verified 03/12/24 10:48 tamsulosin AdvReac Unknown Unknown Verified 03/12/24 10:48 Home Meds Home Medications Medication Instructions Recorded Confirmed multivitamin (Multiple Vitamins 1 tab PO QAM 03/05/19 03/20/24 tablet) ascorbic acid (vitamin C) 500 mg 500 mg PO QAM 11/29/20 03/20/24 tablet (Vitamin C) cyanocobalamin (vitamin B-12) 500 500 mcg PO QAM 08/15/21 03/20/24 mcg tablet (Vitamin B-12) polyethylene glycol 3350 17 gram 17 g PO QAM 08/15/21 03/20/24 oral powder packet (Miralax) cholecalciferol (vitamin D3) 25 1,000 unit PO QAM 11/09/21 03/20/24 mcg (1,000 unit) tablet (Vitamin D3) zinc gluconate 50 mg tablet 25 mg PO QAM 11/16/22 03/20/24 dutasteride 0.5 mg capsule 0.5 mg PO DAILY 05/20/23 03/20/24 tavaborole 5 % topical solution 1 applic topical DAILY 10/29/23 03/20/24 with applicator solifenacin 5 mg tablet (Vesicare) 5 mg PO QAM 01/14/24 03/20/24 vit C 250 mg-vit E 90 mg-zinc 40 1 tab PO BID 01/14/24 03/20/24 mg-copper 1 [id number] capsule (PreserVision AREDS-2) Previous Rx's Medication Instructions Recorded apixaban 5 mg tablet (Eliquis) 5 mg PO BID #180 tabs 05/24/22 sennosides 8.6 mg tablet (Senokot) 8.6 mg PO BID PRN constipation #30 04/04/23 tabs losartan 100 mg tablet 100 mg PO QAM #90 tabs 07/11/23 flecainide 150 mg tablet 150 mg PO BID #180 tabs 10/17/23 silodosin 8 mg capsule (Rapaflo) 8 mg PO QPM #90 caps 11/21/23 oxycodone 5 mg tablet 5 mg PO Q4H PRN pain #30 tabs 01/21/24 furosemide 40 mg tablet 40 mg PO UD PRN edema #30 tabs 02/20/24 potassium chloride 20 mEq 20 meq PO UD PRN edema #30 tabs 02/20/24 tablet,extended release carvedilol 3.125 mg tablet 3.125 mg PO BID #60 tabs 03/12/24 cefadroxil 500 mg capsule 500 mg PO BID 10 days #20 caps 03/23/24 oxycodone 5 mg tablet 5 mg PO Q4H PRN pain #30 tabs 03/23/24 cefadroxil 500 mg capsule 500 mg PO BID 10 days #20 caps 04/01/24 Results & Data (ED) Vital Signs Vital Signs - 24 hr 04/01/24 21:04 04/01/24 21:10 04/01/24 22:22 Temperature 36.2 C L Temperature Source Oral Pulse Rate 99 H 93 H Pulse Rate [Apical] 96 H Respiratory Rate 20 18 Blood Pressure 138/93 Blood Pressure [Left Arm] 139/83 Blood Pressure Mean 108 Blood Pressure Mean [Left Arm] 101 Pulse Oximetry 97 94 Sepsis Recent Fever Within 48 Hours No Sepsis New/Unexplained Change in Mental Status N/A Sepsis Action Taken by Nursing No Action Required Home Medications Current Medication List: was personally reviewed by me Imaging Data Attestation: I personally reviewed and interpreted this imaging study as follows: My Impression: X-ray of the left hip and pelvis was obtained in the emergency department. My interpretation is hip replacement bilaterally, no definite fracture, no definite dislocation, final report pending. Discharge Plan Visit Data Chief Complaint: Hip Pain Stated Complaint: HIP PAIN ED Provider: Chuck Hickey Discharge Problem: Acute pain of left hip, Post-operative pain Patient Disposition: Being Evaluated by Hospitalist Forms Stand Alone Forms: My [facility] Prescriptions Prescriptions: No Action Eliquis 5 mg tablet 5 mg PO BID Qty: 180 3RF losartan 100 mg tablet 100 mg PO QAM Qty: 90 3RF flecainide 150 mg tablet 150 mg PO BID Qty: 180 3RF Rx Instructions: TAKE 1 TABLET BY MOUTH EVERY 12 HOURS silodosin [Rapaflo] 8 mg capsule 8 mg PO QPM Qty: 90 1RF dutasteride 0.5 mg capsule 0.5 mg PO DAILY multivitamin [Multiple Vitamins] tablet 1 tab PO QAM zinc gluconate 50 mg tablet 25 mg PO QAM carvedilol 3.125 mg tablet 3.125 mg PO BID Qty: 60 2RF Rx Instructions: must administer with a meal/food cefadroxil 500 mg capsule 500 mg PO BID 10 Days Qty: 20 0RF tavaborole 5 % solution with applicator 1 applic topical DAILY furosemide 40 mg tablet 40 mg PO UD PRN (Reason: edema) Qty: 30 0RF Rx Instructions: Take with potassium supplement (20 meq) potassium chloride 20 mEq tablet extended release 20 meq PO UD PRN (Reason: edema) Qty: 30 0RF ascorbic acid (vitamin C) [Vitamin C] 500 mg Tablet 500 mg PO QAM cholecalciferol (vitamin D3) [Vitamin D3] 25 mcg (1,000 unit) tablet 1,000 unit PO QAM sennosides [Senokot] 8.6 mg tablet 8.6 mg PO BID PRN (Reason: constipation) Qty: 30 0RF cyanocobalamin (vitamin B-12) [Vitamin B-12] 500 mcg Tablet 500 mcg PO QAM Patient Comments: YOU CAN CHEW IT BUT I JUST SWALLOW IT polyethylene glycol 3350 [Miralax] 17 gram Powder In Packet 17 g PO QAM Patient Comments: MOSTLY EVERY MORNING oxycodone 5 mg Tablet 5 mg PO Q4H PRN (Reason: pain) Qty: 30 0RF cefadroxil 500 mg capsule 500 mg PO BID 10 Days Qty: 20 0RF PreserVision AREDS-2 250-90-40-1 mg Capsule 1 tab PO BID solifenacin [Vesicare] 5 mg tablet 5 mg PO QAM oxycodone 5 mg Tablet 5 mg PO Q4H PRN (Reason: pain) Qty: 30 0RF Referrals Referrals: Srinath Christianson DO [Primary Care Provider] -
--- NOTE | 2024-04-01 23:01 | History & Physical Report ---
Date of Service April 01, 2024 Assessment & Plan (1) Status post left hip replacement: Plan: 83yo male presenting with generalized weakness, difficulty ambulating and a controlled fall earlier today. Patient is s/p left anterior FADI performed by Dr. Saez on 03/20/24. He completed his rehab stay at [facility] and was discharged home yesterday but has been having difficulty with mobility and balance since returning home. Patient endorses significant weight gain and worsening bilateral LE edema which is likely contributing heavily to his ambulatory difficulties. Also with ongoing shooting pain in the left hip --> leg and burning in the groin. -Admit to medical -Maintain fall precautions -PT/OT and Case management consultations appreciated for placement needs. -Patient was prescribed Cefadroxil 500mg po BID x 10 days today at his Orthopedic followup appointment for some redness noted at the surgical site. No drainage or dehiscence. Will administer Cefazolin 500mg IV q 8 hours while inpatient Patient may continue Cefadroxil on discharge -Diuresis as below (2) Edema of both legs: Plan: Patient follows with heart failure. Endorses significant weight gain of 25-30# and worsening bilateral LE edema. No SOB, PND or hypoxia. Has a known Cardiomyopathy with mild LV systolic dysfunction (40-45% per echo 03/12/24, mild biventricular dilation, severe LA dilation and mid RA dilation). Per review of Heart Failure notes, patient's weight has been in the 250's - was 264# on that appointment day 03/12/24. Today's weight is 129.7 kg (285#). Leg edema likely impacting patients ambulation and balance as well as wound healing. He has been taking Lasix 40mg po daily -Diurese with Lasix 40mg IV BID17 - first dose ordered for tomorrow AM -Monitor I/Os and daily weights -Monitor BMP q 12 hours with aggressive diuresis - electrolyte repletion as needed -Continue home Carvedilol (3) Paroxysmal atrial fibrillation: Plan: Patient with PAF, currently rate controlled, on anticoagulation with Apixaban 5mg po BID -Continue Carvedilol -Continue Flecainide -Continue Apixaban (4) Hypertension: Plan: Blood pressure mildly elevated at present -Continue Carvedilol -Continue Losartan -Pain control - Tylenol and oxycodone PRN -Monitor Plan F/E/N - Diuresis with Lasix 40mg IV BID, monitor electrolytes and renal function with BID BMP, Heart healthy/Low Na diet as tolerated Ppx - continue home Apixaban 5mg po BID Code - Full per discussion with patient Dispo - Admit to medical. Active diuresis. PT/OT/CM consultation re: possible rehab placement History of Present Illness Chief Complaint: generalized weakness, imbalance Primary Care Provider: Srinath Christianson DO Gunner Salomon is a pleasant 83yo male with history of HTN, Cardiomyopathy, PAF on anticoagulation presenting with generalized weakness and imbalance. Patient requesting rehab placement. Mr. Salomon was admitted to [facility] 03/19 - 03/23/24 with increased left hip pain and failed conservative therapy. He had a LEFT anterior total hip arthroplasty performed by Dr. Saez on 03/20/24. The surgery was well tolerated with no complications. Patient did well post-operatively and was discharged to [facility] on 03/23/24. He was continued on his home dose of Eliquis and prescribed Cefadroxil BID x 10 days to prevent infection. Patient reports that he did well at [facility] overall. He was able to ambulate and participate in therapy. He was discharged home yesterday 03/31/24. He has had some worsening pain in the left hip -reports a severe, intermittent shooting pain into the leg and burning in the groin. Patient was seen in followup today with Dr. Saez and had his ana removed. Steri strips placed and patient was started again on Cefadroxil for some redness noted at the incision site. When he got home he felt weak and was having difficulty getting up from the commode. He did have a fall - tried to sit on a stool with a blanket covering it and slid off the blanket and onto the floor. He denies trauma to the left hip. No head trauma or LOC. He presents today requesting an x-ray of the left hip to ensure no injury. Family at bedside is concerned because of generalized weakness, difficulty ambulating and his recent fall. They are requesting rehab placement. Patient additionally reports progressive bilateral LE edema. He follows with Heart Failure clinic for this complaint and is on Lasix 40mg po daily. He ricky mates a 25-30# weight gain Allergies Allergy/AdvReac Type Severity Reaction Status Date / Time chlorhexidine AdvReac Intermediate Rash Verified 03/12/24 10:48 lisinopril AdvReac Intermediate cough Verified 03/12/24 10:48 morphine AdvReac Intermediate Reddened Verified 03/12/24 10:48 face/Hot flashes/Tongue swelling nebivolol [From Bystolic] AdvReac Unknown Unknown Verified 03/12/24 10:48 tamsulosin AdvReac Unknown Unknown Verified 03/12/24 10:48 Home Medications Medication Instructions Recorded Confirmed Type multivitamin (Multiple Vitamins 1 tab PO QAM 03/05/19 04/01/24 History tablet) ascorbic acid (vitamin C) 500 mg 500 mg PO QAM 11/29/20 04/01/24 History tablet (Vitamin C) cyanocobalamin (vitamin B-12) 500 500 mcg PO QAM 08/15/21 04/01/24 History mcg tablet (Vitamin B-12) polyethylene glycol 3350 17 gram 17 g PO QAM 08/15/21 04/01/24 History oral powder packet (Miralax) cholecalciferol (vitamin D3) 25 1,000 unit PO QAM 11/09/21 04/01/24 History mcg (1,000 unit) tablet (Vitamin D3) apixaban 5 mg tablet (Eliquis) 5 mg PO BID #180 tabs 05/24/22 04/01/24 Rx zinc gluconate 50 mg tablet 25 mg PO QAM 11/16/22 04/01/24 History sennosides 8.6 mg tablet (Senokot) 8.6 mg PO BID PRN constipation #30 04/04/23 04/01/24 Rx tabs dutasteride 0.5 mg capsule 0.5 mg PO DAILY 05/20/23 04/01/24 History losartan 100 mg tablet 100 mg PO QAM #90 tabs 07/11/23 04/01/24 Rx flecainide 150 mg tablet 150 mg PO BID #180 tabs 10/17/23 04/01/24 Rx tavaborole 5 % topical solution 1 applic topical DAILY 10/29/23 04/01/24 History with applicator silodosin 8 mg capsule (Rapaflo) 8 mg PO QPM #90 caps 11/21/23 04/01/24 Rx solifenacin 5 mg tablet (Vesicare) 5 mg PO QAM 01/14/24 04/01/24 History vit C 250 mg-vit E 90 mg-zinc 40 1 tab PO BID 01/14/24 04/01/24 History mg-copper 1 [id number]-pyrdmo capsule (PreserVision AREDS-2) carvedilol 3.125 mg tablet 3.125 mg PO BID #60 tabs 03/12/24 04/01/24 Rx oxycodone 5 mg tablet 5 mg PO Q4H PRN pain #30 tabs 03/23/24 04/01/24 Rx acetaminophen 325 mg tablet 650 mg PO Q4 PRN GENERAL DISCOMFORT 04/01/24 04/01/24 History cefadroxil 500 mg capsule 500 mg PO BID 10 days #20 caps 04/01/24 04/01/24 Rx furosemide 40 mg tablet 40 mg PO DAILY PRN edema 04/01/24 04/01/24 History potassium chloride 20 mEq 20 meq PO DAILY PRN USING 04/01/24 04/01/24 History tablet,extended release(part/cryst) FUROSEMIDE Past Med/Surg History Problem List Post-operative pain (Acute) Acute pain of left hip (Acute) Status post left hip replacement (~03/2024) Cardiomyopathy Osteoarthritis of left hip Status post right hip replacement (~01/2024) Lumbar disc disease with radiculopathy Arthritis of right hip Lumbar degenerative disc disease Edema of both legs 05/23/23 Impaired mobility Abnormal gait 11/16/22 Pre-diabetes Vitamin B12 deficiency Mild cognitive disorder BMI 35.0-35.9,adult (Acute) Benign localized hyperplasia of prostate with urinary obstruction Urge incontinence (Acute) Anticoagulant long-term use Paroxysmal atrial fibrillation DX 6 YR AGO / NO HX CARDIOVERSION Hypertension Medical History Neck problem limited rom. Macular degeneration early Impaired mobility History of vitamin D deficiency borderline. Mild cognitive disorder sometimes forgetful/pt reports thinks age related. No neurology dx, no neurology. pt reports wellness cognitive test upcoming sometime 2023. Pre-diabetes pt denies Lumbar degenerative disc disease steroid injection for back December 26 2023 Overactive bladder Enlarged prostate Arthritis HTN (hypertension) controlled, stable per pt History of atrial fibrillation dx approx 2013 - no hx cardioversion - [place] History of kidney stones (~2003) Rosacea SSS (sick sinus syndrome) follows with [facility] Surgical History History of total right hip replacement 01/20/24 History of right cataract surgery History of left cataract surgery History of colonoscopy with polypectomy "Pre cancerous, got it all" H/O shoulder surgery right- 2004, repair of rotator cuff. H/O colonoscopy Family History Son Esophageal reflux Brother Brain tumor Prostate cancer Unknown Nephrolithiasis Denies family history of Ovarian cancer Diabetes Myocardial infarction Breast cancer Lung cancer Colorectal cancer Hypertension Social History Smoking Status: Never smoker Tobacco Type: Cigarettes, Pipe and Cigars Age Started Using Tobacco: 16; Age Quit Using Tobacco: 21; packs per day: 0.25; Second Hand Exposure: No; Do You Dip or Chew Tobacco: No; Hx Alcohol Use: Yes Alcohol type: hard liquor Alcohol Intake Frequency: 2-3 x/Week Hx Substance Use: No Preferred Language: Mauritanian Communication Ability: Effective Visual Impairment: Partially Limited Hearing Ability: Use of Hearing Aid Veterinarian Assistant Required: No Beliefs That Will Affect Care: None marital status: Current Living Situation: Spouse current occupational status: employed How many Children do You have: 2 Feels Safe at Home: Yes Childhood Exposure to Second-Hand Smoke: No caffeine: Yes Dental Care, Regularly: Yes Physical Activity Frequency: Does not Exercise Seatbelt Use: always Sunscreen Use: Yes Assistive Devices: Walker Review of Systems Review of Systems: All systems reviewed & are unremarkable except as noted in HPI & below Physical Exam Physical Exam: General: patient resting comfortably, NAD, non-toxic in appearance, AA&O x 4 Skin: no rash HEENT: NC/AT, PERRL, EOMI, anicteric sclera, conjunctiva without injection, external ear normal to inspection and nontender, nares patent, moist mucus membranes, dentition intact, no oropharyngeal lesions, neck supple, trachea midline, no LAD, no thyromegaly, no JVD Heart: +S1/S2, regular, no m/r/g Lungs: equal air entry bilaterally, no rales/rhonchi/wheezes Abd: +BS, soft, NT/ND, no masses/organomegaly/ascites Ext: 2+ edema of bilateral LE with redness of bilateral legs, +pre-sacral edema Left surgical site with steri-strips in place. Some edema surrounding the wound as well as mild warmth and redness. No drainage or dehiscence. Neuro: nonfocal, patient AA&O x 4, speech intact, no facial droop, moving all extremities on command with equal strength 5/5 Results & Data Results & Data Vital Signs (Past 12 Hours) Vital Signs Temp Pulse Pulse Resp BP BP Pulse Ox 04/01/24 22:40 98 04/01/24 22:22 96 H 18 139/83 94 04/01/24 21:10 93 H 04/01/24 21:04 36.2 C L 99 H 20 138/93 97 O2 Del Method 04/01/24 22:40 Room Air 04/01/24 22:22 04/01/24 21:10 04/01/24 21:04 Laboratory Results Laboratory Results WBC 8.32 K/ul (4.8-10.8) 04/01/24 23:00 RBC 3.66 M/uL (4.70-6.10) L 04/01/24 23:00 Hgb 10.7 g/dl (14.0-18.0) L 04/01/24 23:00 Hct 33.8 % (42.0-52.0) L 04/01/24 23:00 MCV 92.3 fL (80.0-100.0) 04/01/24 23:00 MCH 29.2 pg (25.0-34.0) 04/01/24 23:00 MCHC 31.7 g/dL (32.0-36.0) L 04/01/24 23:00 RDW Std Deviation 45.4 fL (36.4-46.3) 04/01/24 23:00 RDW Coeff of Loretta 13.3 % (11.5-14.5) 04/01/24 23:00 Plt Count 250 K/uL (130-400) 04/01/24 23:00 MPV 9.3 fL (9.4-12.4) L 04/01/24 23:00 Immature Gran % (Auto) 0.2 % 04/01/24 23:00 Neut % (Auto) 77.6 % 04/01/24 23:00 Lymph % (Auto) 8.1 % 04/01/24 23:00 [place] % (Auto) 11.4 % 04/01/24 23:00 Eos % (Auto) 2.3 % 04/01/24 23:00 Baso % (Auto) 0.4 % 04/01/24 23:00 Neut # (Auto) 6.46 K/uL (1.40-6.50) 04/01/24 23:00 Lymph # (Auto) 0.67 K/uL (1.20-3.40) L 04/01/24 23:00 [place] # (Auto) 0.95 K/uL (0.11-0.59) H 04/01/24 23:00 Eos # (Auto) 0.19 K/uL (0.00-0.50) 04/01/24 23:00 Baso # (Auto) 0.03 K/uL (0.00-0.20) 04/01/24 23:00 Immature Gran # (Auto) 0.02 K/uL (0.01-0.20) 04/01/24 23:00 Code Status & VTE Plan VTE Prophylaxis Plan VTE Prophylaxis will be ordered: Yes PG Care Time/CCT Total # of Minutes Spent Total Time Spent with Patient: Total time spent is greater than 50% in coordination of care (as documented) at patient's floor/unit and/or counseling patient: Coding Level of Care Code 55124 INT INP/OBS CARE 2/55MIN Diagnoses Status post left hip replacement Z96.642 Edema of both legs R60.0 Paroxysmal atrial fibrillation I48.0 Primary hypertension I10 Hypertension type: primary hypertension (4) Hypertension Hypertension type: primary hypertension Qualified Code(s): I10 - Essential (primary) hypertension
[2024-04-01 23:14] LABS: Basophils # (auto) 0.03 K/uL (0.00-0.20); Basophils % (auto) 0.4 %; Eosinophils # (auto) 0.19 K/uL (0.00-0.50); Eosinophils % (auto) 2.3 %; Hematocrit (blood only) 33.8 % (42.0-52.0); Hemoglobin 10.7 g/dl (14.0-18.0); Immature Granulocytes # (auto) 0.02 K/uL (0.01-0.20); Immature Granulocytes % (auto) 0.2 %; Lymphocytes # (auto) 0.67 K/uL (1.20-3.40); Lymphocytes % (auto) 8.1 %; Mean Corpuscular Hemoglobin 29.2 pg (25.0-34.0); Mean Corpuscular Hgb Conc 31.7 g/dL (32.0-36.0); Mean Corpuscular Volume 92.3 fL (80.0-100.0); Mean Platelet Volume 9.3 fL (9.4-12.4); Monocytes # (auto) 0.95 K/uL (0.11-0.59); Monocytes % (auto) 11.4 %; Neutrophils # (auto) 6.46 K/uL (1.40-6.50); Neutrophils % (auto) 77.6 %; Platelet Count 250 K/uL (130-400); RDW Coefficient of Variation 13.3 % (11.5-14.5); RDW Standard Deviation 45.4 fL (36.4-46.3); Red Blood Count 3.66 M/uL (4.70-6.10); White Blood Count 8.32 K/ul (4.8-10.8)
[2024-04-01 23:34] LABS: Albumin Globulin Ratio 1.3 (0.9-2); Albumin Level 3.4 gm/dl (3.4-5.0); BUN Creatinine Ratio 23.2 (10-20); Bilirubin,Total 0.9 mg/dl (0.2-1.0); Calcium 9.3 mg/dl (8.6-10.3); Creatinine Clr Calc Pharmacy 67.4 ml/min; Globulin 2.7 gm/dl (2.5-4.0); Potassium 4.1 mmol/L (3.5-5.1); Total Protein 6.1 gm/dl (6.0-8.3)
[2024-04-02] MEDS ORDERED: oxyCODONE HCL IR 5 MG TAB (IMMEDIATE RELEASE) PO PRN (00:03)
[2024-04-02 00:31] LABS: Magnesium 2.2 mg/dl (1.7-2.4); Phosphorus 3.3 mg/dl (2.5-4.9)
[2024-04-02] MEDS: ACETAMINOPHEN 325 MG TAB PO PRN (00:43)
--- NOTE | 2024-04-02 06:44 | XRay Report ---
XR hip LT 2V w pelvis CLINICAL HISTORY: Left hip pain. Postoperative evaluation. COMPARISON: Pelvis and left hip radiograph March 20, 2024. FINDINGS: Alignment of the total left hip arthroplasty is anatomic. There is no periprosthetic fract ure or lucency. There are no unexpected radiopaque foreign bodies. Visualized portions of the right h ip arthroplasty are unremarkable. There are no fractures within the pelvis. IMPRESSION: 1. No fractures within the pelvis or hips. 2. Intact total left hip arthroplasty. No periprosthetic fracture. ACT 112: Negative or not required by law. Electronically signed by: Evin Lord M.D. 04/02/2024 6:43 AM
[2024-04-02 06:58] LABS: INR 1.2 (0.9-1.1); Partial Thromboplastin Ratio 1.1; Partial Thromboplastin Time 30 Seconds (21-31)
[2024-04-02] MEDS: APIXABAN 5 MG TABLET PO SCH (09:04)
[2024-04-02] MEDS: FLECAINIDE ACETATE 100 MG TABLET PO SCH (09:05)
[2024-04-02] MEDS: FINASTERIDE 5 MG TAB PO SCH (09:05)
[2024-04-02] MEDS: carvediloL 3.125 MG TAB PO SCH (09:05)
[2024-04-02] MEDS: FUROSEMIDE 40 MG/4 ML VIAL IV SCH (09:06)
[2024-04-02] MEDS: LOSARTAN POTASSIUM 50 MG TAB PO SCH (09:06)
[2024-04-02] MEDS: OXYBUTYNIN CHLORIDE XL 5 MG TABCR PO SCH (09:06)
--- NOTE | 2024-04-02 16:14 | Hospitalist Progress Note ---
Date of Service April 02, 2024 Assessment & Plan (1) Status post left hip replacement: Plan: 83yo male presenting with generalized weakness, difficulty ambulating and a controlled fall 04/01. Patient is s/p left anterior FADI performed by Dr. Saez on 03/20/24. He completed his rehab stay at [facility] and was discharged home 03/31 but has been having difficulty with mobility and balance since returning home. -Maintain fall precautions -PT/OT recommending rehab. -Pain control - Tylenol and oxycodone PRN -Patient was prescribed Cefadroxil 500mg po BID x 10 days today at his Orthopedic followup appointment for some redness noted at the surgical site. Will administer Cefazolin 500mg IV q 8 hours while inpatient Patient may continue Cefadroxil on discharge -Diuresis as below (2) Edema of both legs: Plan: Patient follows with heart failure. Endorses significant weight gain of 25-30# and worsening bilateral LE edema. No SOB, PND or hypoxia. Has a known Cardiomyopathy with mild LV systolic dysfunction (40-45% per echo 03/12/24, mild biventricular dilation, severe LA dilation and mid RA dilation). Per review of Heart Failure notes, patient's weight has been in the 250's - was 264# on that appointment day 03/12/24. Today's weight is 129.7 kg (285#). Leg edema likely impacting patients ambulation and balance as well as wound healing. He has been taking Lasix 40mg po daily Acute on chronic HFrEF -Diurese with Lasix 40mg IV BID17 -Monitor I/Os and daily weights -Monitor BMP q 12 hours with aggressive diuresis - electrolyte repletion as needed -Continue home Carvedilol -BMP reviewed : electrolytes stable. Repeat BMP pending. Plan Chronic conditions: HTN: Carvedilol, Losartan A fib: Carvedilol, Flecainide, Apixaban Diet- Heart healthy/Low Na diet as tolerated Ppx - continue home Apixaban 5mg po BID Code - Full per Dispo - Admit to medical. Admission and Anticipated Discharge Date Admission Date: April 01, 2024 Subjective Patient seen and examined this morning. Patient denied any acute complaints. He is eager to return to rehab to continue to work on his strenght. Physical Exam 2 Constitutional: WD/WN, vitals as above Eyes: PERRL, conjunctivae normal, anicteric sclerae Respiratory: breathing unlabored Cardiovascular: well perfused Skin: no rashes, warm and dry Psychiatric: A+Ox3, euthymic affect Results & Data Results & Data Vital Signs (Past 12 Hours) Vital Signs Temp Pulse Resp BP Pulse Ox O2 Del Method 04/02/24 14:52 36.7 C 82 18 154/73 H 97 Room Air 04/02/24 10:41 Room Air 04/02/24 08:14 36.6 C 77 18 160/74 H 96 Room Air Laboratory Results 04/01/24 23:00 PG Care Time/CCT Total # of Minutes Spent Total Time Spent with Patient: Total time spent is greater than 50% in coordination of care (as documented) at patient's floor/unit and/or counseling patient: Coding Level of Care Code 65393 SUB INP/OBS CARE 2/35MIN Diagnoses Status post left hip replacement Z96.642 Edema of both legs R60.0
[2024-04-02 16:20] LABS: BUN Creatinine Ratio 20.5 (10-20); Calcium 9.1 mg/dl (8.6-10.3); Creatinine Clr Calc Pharmacy 66.4 ml/min; Potassium 3.6 mmol/L (3.5-5.1)
[2024-04-02] MEDS: POTASSIUM CHLORIDE CRTAB 20 MEQ TABCR PO SCH (17:25)
[2024-04-03 04:43] LABS: BUN Creatinine Ratio 19.8 (10-20); Calcium 8.8 mg/dl (8.6-10.3); Creatinine Clr Calc Pharmacy 61.4 ml/min; Potassium 3.6 mmol/L (3.5-5.1)
--- NOTE | 2024-04-03 15:41 | Hospitalist Progress Note ---
Date of Service April 03, 2024 Assessment & Plan (1) Status post left hip replacement: Plan: 83yo male presenting with generalized weakness, difficulty ambulating and a controlled fall 04/01. Patient is s/p left anterior FADI performed by Dr. Saez on 03/20/24. He completed his rehab stay at [facility] and was discharged home 03/31 but has been having difficulty with mobility and balance since returning home. -Maintain fall precautions -PT/OT recommending rehab. -Pain control - Tylenol and oxycodone PRN -Patient was prescribed Cefadroxil 500mg po BID x 10 days today at his Orthopedic followup appointment for some redness noted at the surgical site. Will administer Cefazolin 500mg IV q 8 hours while inpatient Patient may continue Cefadroxil on discharge -incision site concern for dehiscence, reached out to patient's surgeon, Dr. Saez to see if incision site looks abnormal from patient's recent follow up visit. -Diuresis as below (2) Edema of both legs: Plan: Patient follows with heart failure. Endorses significant weight gain of 25-30# and worsening bilateral LE edema. No SOB, PND or hypoxia. Has a known Cardiomyopathy with mild LV systolic dysfunction (40-45% per echo 03/12/24, mild biventricular dilation, severe LA dilation and mid RA dilation). Per review of Heart Failure notes, patient's weight has been in the 250's - was 264# on that appointment day 03/12/24. Today's weight is 129.7 kg (285#). Leg edema likely impacting patients ambulation and balance as well as wound healing. He has been taking Lasix 40mg po daily Acute on chronic HFrEF -Diurese with Lasix 40mg IV BID17 -Monitor I/Os and daily weights -Monitor BMP q 12 hours with aggressive diuresis - electrolyte repletion as needed -Continue home Carvedilol -BMP reviewed 04/03: electrolytes stable. -Per patient he takes PO potassium when using diuretics, added 20meq potassium PO daily. -Hold further doses of IV Lasix pending repeat AM labs and AM weight. AM BMP Plan Chronic conditions: HTN: Carvedilol, Losartan A fib: Carvedilol, Flecainide, Apixaban Diet- Heart healthy/Low Na diet as tolerated Ppx - continue home Apixaban 5mg po BID Code - Full per Dispo - Admit to medical. Discussed w/ daughter at bedside 04/03. Admission and Anticipated Discharge Date Admission Date: April 01, 2024 Subjective Patient seen and examined this afternoon. Patient reports to be feeling well. He would like to go to rehab as soon as possible. Physical Exam Constitutional: WD/WN, vitals as above Respiratory: breathing unlabored Cardiovascular: well perfused Psychiatric: A+Ox3, euthymic affect Results & Data Results & Data Vital Signs (Past 12 Hours) Vital Signs Temp Pulse Resp BP Pulse Ox O2 Del Method 04/03/24 15:18 36.9 C 76 18 145/84 H 96 Room Air 04/03/24 07:06 36.6 C 81 18 149/84 H 96 Room Air PG Care Time/CCT Total # of Minutes Spent Total Time Spent with Patient: Total time spent is greater than 50% in coordination of care (as documented) at patient's floor/unit and/or counseling patient: Coding Level of Care Code 95653 SUB INP/OBS CARE 2/35MIN Diagnoses Status post left hip replacement Z96.642 Edema of both legs R60.0
[2024-04-03 16:08] LABS: BUN Creatinine Ratio 19.6 (10-20); Creatinine Clr Calc Pharmacy 65.4 ml/min; Potassium 3.5 mmol/L (3.5-5.1)
[2024-04-04 06:33] LABS: BUN Creatinine Ratio 20.9 (10-20); Creatinine Clr Calc Pharmacy 66.6 ml/min; Potassium 3.4 mmol/L (3.5-5.1)
[2024-04-04] MEDS: ADVANCED PROBIOTIC 625 MG CAPSULE PO SCH (11:46)
[2024-04-04] MEDS: acetaZOLAMIDE 250 MG in SYRINGE 0 ML IV STA ×2 (12:05→19:43)
--- NOTE | 2024-04-05 07:41 | Hospitalist Progress Note ---
Date of Service April 04, 2024 Assessment & Plan (1) Status post left hip replacement: Plan: 83yo male presenting with generalized weakness, difficulty ambulating and a controlled fall 04/01. Patient is s/p left anterior FADI performed by Dr. Saez on 03/20/24. He completed his rehab stay at [facility] and was discharged home 03/31 but has been having difficulty with mobility and balance since returning home. -Maintain fall precautions -PT/OT recommending rehab. -Pain control - Tylenol and oxycodone PRN -Patient was prescribed Cefadroxil 500mg po BID x 10 days today at his Orthopedic followup appointment for some redness noted at the surgical site. Will administer Cefazolin 500mg IV q 8 hours while inpatient Patient may continue Cefadroxil on discharge -incision site concern for dehiscence, reached out to patient's surgeon, Dr. Saez to see if incision site looks abnormal from patient's recent follow up visit. -Diuresis as below (2) Edema of both legs: Plan: Patient follows with heart failure. Endorses significant weight gain of 25-30# and worsening bilateral LE edema. No SOB, PND or hypoxia. Has a known Cardiomyopathy with mild LV systolic dysfunction (40-45% per echo 03/12/24, mild biventricular dilation, severe LA dilation and mid RA dilation). Per review of Heart Failure notes, patient's weight has been in the 250's - was 264# on that appointment day 03/12/24. Today's weight is 129.7 kg (285#). Leg edema likely impacting patients ambulation and balance as well as wound healing. He has been taking Lasix 40mg po daily Acute on chronic HFrEF -Diurese with Lasix 40mg IV BID17 -Monitor I/Os and daily weights -Monitor BMP q 12 hours with aggressive diuresis - electrolyte repletion as needed -Continue home Carvedilol -BMP reviewed 04/03: electrolytes stable. -Per patient he takes PO potassium when using diuretics, added 20meq potassium PO daily. -Hold further doses of IV Lasix pending repeat AM labs and AM weight. Ordered acetazolamide 250 mg x2 on 11 AM BMP, BNP Plan Chronic conditions: HTN: Carvedilol, Losartan A fib: Carvedilol, Flecainide, Apixaban Diet- Heart healthy/Low Na diet as tolerated Ppx - continue home Apixaban 5mg po BID Code - Full per Dispo - Admit to medical. Discussed w/ daughter at bedside 04/03. Admission and Anticipated Discharge Date Admission Date: April 01, 2024 Subjective 83 yo male reports feeling slightly better today. He states his swelling has improved. Physical Exam Constitutional: WD/WN, vitals as above Eyes: PERRL, conjunctivae normal, anicteric sclerae Skin: no rashes, warm and dry (pitting edema +2) Psychiatric: A+Ox3, euthymic affect Results & Data Results & Data Vital Signs (Past 12 Hours) Vital Signs Temp Pulse Resp BP Pulse Ox O2 Del Method 04/05/24 06:58 36.4 C L 71 18 164/89 H 98 Room Air PG Care Time/CCT Total # of Minutes Spent Total Time Spent with Patient: Total time spent is greater than 50% in coordination of care (as documented) at patient's floor/unit and/or counseling patient: Coding Level of Care Code 03016 SUB INP/OBS CARE 2/35MIN Diagnoses Status post left hip replacement Z96.642 Edema of both legs R60.0
[2024-04-05 08:14] LABS: Hematocrit (blood only) 35.7 % (42.0-52.0); Hemoglobin 11.1 g/dl (14.0-18.0); Mean Corpuscular Hemoglobin 28.8 pg (25.0-34.0); Mean Corpuscular Hgb Conc 31.1 g/dL (32.0-36.0); Mean Corpuscular Volume 92.7 fL (80.0-100.0); Mean Platelet Volume 9.2 fL (9.4-12.4); Platelet Count 267 K/uL (130-400); RDW Coefficient of Variation 13.3 % (11.5-14.5); RDW Standard Deviation 45.4 fL (36.4-46.3); Red Blood Count 3.85 M/uL (4.70-6.10); White Blood Count 4.39 K/ul (4.8-10.8)
[2024-04-05 08:33] LABS: Calcium 9.4 mg/dl (8.6-10.3); Creatinine Clr Calc Pharmacy 65.7 ml/min; Potassium 3.8 mmol/L (3.5-5.1)
[2024-04-05] MEDS: acetaZOLAMIDE 250 MG in SYRINGE 0 ML IV STA (12:20)
--- NOTE | 2024-04-05 17:29 | Hospitalist Progress Note ---
Date of Service April 05, 2024 Assessment & Plan (1) Status post left hip replacement: Plan: 83yo male presenting with generalized weakness, difficulty ambulating and a controlled fall 04/01. Patient is s/p left anterior FADI performed by Dr. Saez on 03/20/24. He completed his rehab stay at [facility] and was discharged home 03/31 but has been having difficulty with mobility and balance since returning home. -Maintain fall precautions -PT/OT recommending rehab. -Pain control - Tylenol and oxycodone PRN -Patient was prescribed Cefadroxil 500mg po BID x 10 days today at his Orthopedic followup appointment for some redness noted at the surgical site. Will administer Cefazolin 500mg IV q 8 hours while inpatient Patient may continue Cefadroxil on discharge -incision site concern for dehiscence, reached out to patient's surgeon, Dr. Saez to see if incision site looks abnormal from patient's recent follow up visit. -Diuresis as below (2) Edema of both legs: Plan: Patient follows with heart failure. Endorses significant weight gain of 25-30# and worsening bilateral LE edema. No SOB, PND or hypoxia. Has a known Cardiomyopathy with mild LV systolic dysfunction (40-45% per echo 03/12/24, mild biventricular dilation, severe LA dilation and mid RA dilation). Per review of Heart Failure notes, patient's weight has been in the 250's - was 264# on that appointment day 03/12/24. Today's weight is 129.7 kg (285#). Leg edema likely impacting patients ambulation and balance as well as wound healing. He has been taking Lasix 40mg po daily Acute on chronic HFrEF -Diurese with Lasix 40mg IV BID17 -Monitor I/Os and daily weights -Monitor BMP q 12 hours with aggressive diuresis - electrolyte repletion as needed -Continue home Carvedilol -BMP reviewed 04/03: electrolytes stable. -Per patient he takes PO potassium when using diuretics, added 20meq potassium PO daily. -Hold further doses of IV Lasix pending repeat AM labs and AM weight. Ordered acetazolamide 250 mg x2 on 04/04 Acetazolamide 250 mg x1 on 04/05 AM BMP, BNP Plan Chronic conditions: HTN: Carvedilol, Losartan A fib: Carvedilol, Flecainide, Apixaban Diet- Heart healthy/Low Na diet as tolerated Ppx - continue home Apixaban 5mg po BID Code - Full per Dispo - Admit to medical. Discussed w/ daughter at bedside 04/03. Admission and Anticipated Discharge Date Admission Date: April 01, 2024 Subjective 83 yo male reports feeling slightly better today. His swelling is better. Review of Systems Review of Systems: All systems reviewed & are unremarkable except as noted in HPI & below Physical Exam Constitutional: WD/WN, vitals as above Eyes: PERRL, conjunctivae normal, anicteric sclerae Skin: no rashes, warm and dry (pitting edema +2) Psychiatric: A+Ox3, euthymic affect Results & Data Results & Data Vital Signs (Past 12 Hours) Vital Signs Temp Pulse Resp BP Pulse Ox O2 Del Method 04/05/24 14:25 36.3 C L 68 18 160/90 H 99 Room Air 04/05/24 06:58 36.4 C L 71 18 164/89 H 98 Room Air PG Care Time/CCT Total # of Minutes Spent Total Time Spent with Patient: Total time spent is greater than 50% in coordination of care (as documented) at patient's floor/unit and/or counseling patient: Coding Level of Care Code 99661 SUB INP/OBS CARE 2/35MIN Diagnoses Status post left hip replacement Z96.642 Edema of both legs R60.0
[2024-04-06 06:25] LABS: Hematocrit (blood only) 32.8 % (42.0-52.0); Hemoglobin 10.4 g/dl (14.0-18.0); Mean Corpuscular Hemoglobin 28.9 pg (25.0-34.0); Mean Corpuscular Hgb Conc 31.7 g/dL (32.0-36.0); Mean Corpuscular Volume 91.1 fL (80.0-100.0); Mean Platelet Volume 9.6 fL (9.4-12.4); Platelet Count 270 K/uL (130-400); RDW Coefficient of Variation 13.2 % (11.5-14.5); RDW Standard Deviation 44.3 fL (36.4-46.3); White Blood Count 4.92 K/ul (4.8-10.8)
[2024-04-06 06:48] LABS: BUN Creatinine Ratio 20.4 (10-20); Calcium 9.3 mg/dl (8.6-10.3); Creatinine Clr Calc Pharmacy 63.4 ml/min; Potassium 3.6 mmol/L (3.5-5.1)
[2024-04-06 06:59] VITALS: RESP 18; TEMP 97.5; O2SAT 99
--- NOTE | 2024-04-06 10:20 | Discharge Summary ---
Discharge Summary Date of Service April 06, 2024 Principal Dx & Hospital Course #1 = Principal Diagnosis (1) Status post left hip replacement: 83yo male presenting with generalized weakness, difficulty ambulating and a controlled fall 04/01. Patient is s/p left anterior FADI performed by Dr. Saez on 03/20/24. He completed his rehab stay at [facility] and was discharged home 03/31 but has been having difficulty with mobility and balance since returning home. -Pain control - Tylenol and oxycodone PRN -Patient was prescribed Cefadroxil 500mg po BID x 10 days today at his Ortho followup 04/01 for some redness noted at the surgical site. Recieved cefazolin inpatient, continue Cefadroxil through 04/11 -PT/OT recommending rehab - discharge to rehab at [facility] today (2) Edema of both legs: Acute on chronic HFrEF Patient follows with heart failure. Endorses significant weight gain of 25-30# and worsening bilateral LE edema. No SOB, PND or hypoxia. Dry weight around 250 # Last echo 03/12: EF 40-45%, mild biventricular dilation, severe LA dilation and mid RA dilation Continue carvedilol. Diuresed well with IV lasix and acetazolamide. Discharge on lasix 40mg PO daily + potassium supplementation, outpatient follow up with HF clinic Discharge weight: 117kg (3) Anemia: Mild, likely from recent hip surgery follow CBC as outpt with PCP Plan Chronic conditions: HTN: Carvedilol, Losartan A fib: Carvedilol, Flecainide, Apixaban Dispo: [facility] to [facility] today Discussed w/ daughter at bedside 04/03. Notes For Next Care Provider Continue cefadroxil BID through 04/11 outpatient folllow up with HF clinic - discussed with Sherrie Valentin PA-C day of discharge Medication Changes From Visit schedule lasix to daily (ordered prn) Admission HPI Per Admitting Provider Gunner Salomon is a pleasant 83yo male with history of HTN, Cardiomyopathy, PAF on anticoagulation presenting with generalized weakness and imbalance. Patient requesting rehab placement. Mr. Salomon was admitted to [facility] 03/19 - 03/23/24 with increased left hip pain and failed conservative therapy. He had a LEFT anterior total hip arthroplasty performed by Dr. Saez on 03/20/24. The surgery was well tolerated with no complications. Patient did well post-operatively and was discharged to [facility] on 03/23/24. He was continued on his home dose of Eliquis and prescribed Cefadroxil BID x 10 days to prevent infection. Patient reports that he did well at [facility] overall. He was able to ambulate and participate in therapy. He was discharged home yesterday 03/31/24. He has had some worsening pain in the left hip -reports a severe, intermittent shooting pain into the leg and burning in the groin. Patient was seen in followup today with Dr. Saez and had his ana removed. Steri strips placed and patient was started again on Cefadroxil for some redness noted at the incision site. When he got home he felt weak and was having difficulty getting up from the commode. He did have a fall - tried to sit on a stool with a blanket covering it and slid off the blanket and onto the floor. He denies trauma to the left hip. No head trauma or LOC. He presents today requesting an x-ray of the left hip to ensure no injury. Family at bedside is concerned because of generalized weakness, difficulty ambulating and his recent fall. They are requesting rehab placement. Patient additionally reports progressive bilateral LE edema. He follows with Heart Failure clinic for this complaint and is on Lasix 40mg po daily. He estimates a 25-30# weight gain Discharge Exam General: NAD, VS as above Resp: normal respiratory effort, lungs clear to auscultation, no crackling CV: RRR, no murmur, Abd: normal bowel sounds, non tender, no hepatosplenomegaly Extremities: Moves all extremities, 2+ edema b/l LE extremities - pt reports this is improved Neuro: A&O x3, Skin: intact, no lesions noted. Hip incision no signs of active infection, no pustular drainage, steri strips in place Discharge Plan Discharge Items Patient Disposition: Transfer Intermediate Fac Reason For Visit: GENERALIZED WEAKNESS, IMBALANCE Discharge Diagnosis: Weakness, CHF exacerbation Activity: As commented below Activity Comment: work with therapy to get stronger Weightbearing: Full weightbearing Non-emergency contact: Primary Care Provider, Specialist and [employer]rection [employer] Supervisor Call non-emergency contact if: you have any medication questions and your symptoms worsen Follow-up/Referrals: Karina Valentin PA-C [Physician Personal Consultant] - 04/13/24 10:30 am (follow up within 1-2 weeks ) Srinath Christianson, [Primary Care Provider] - Diet: Heart Healthy and Low Sodium (2gm) Fluids: 1800ml (7 cups) Addtl Attending Provider Instructions: Mr. Salomon, You were hospitalized after increasing weakness since discharge from rehab. You were also found to have an exacerbation of your heart failure - thankfully you responded to diuretics and have lost some of your water weight. It is important that you take your lasix every day and follow a low sodium diet. Recommend follow up with Sherrie Bowers in the heart failure clinic as your regimen may need to be further adjusted. Recommendations: * Lasix 40mg daily (with potassium supplementation) * daily STANDING weights - call Heart Failure clinic if gaining more than 2# in one day or 5# in one week * continue cefadroxil BID through 03/11 for your hip * Follow up with PCP within one week of d/c from rehab Call your Primary Care doctor if any of the following symptoms or problems start or get worse: * Shortness of breath or difficulty breathing * Wake up at night short of breath * Chest pain * Cough * Swelling of your hands, feet, or legs * More fatigued or tired with your normal activity * Palpitations - sudden fast heart beats WEIGHT * Weigh yourself every morning after using the bathroom. * Use the same scale. * Wear the same amount of clothing. * Write your weight down on a chart. * Call your Primary Care doctor if you gain more than 2-3 pounds in 1-2 days. MEDICATIONS * Use this discharge instruction sheet for medication instructions. * Take your medications at the time your doctor ordered. * Do not skip a dose of your medicines. * If you miss a dose of medicine, take it as soon as possible, but DO NOT DOUBLE A DOSE. * Read your medicine information when you get home. * Know all of the side effects of your medicine. If in doubt, ask your pharmacist * Call your Primary Care doctor's office if you have any side effects. * Be sure all of your doctors know what medicine and herbs you take (including cold, flu, and herbal medicine). Take the following with you to your follow-up doctor appointments: * Weight Chart * Medication List * List of questions Do not drink excessive alcohol, beer or wine. Pending Studies at Discharge: No Stand-Alone Forms: My [facility] Skilled Items Patient informed of condition?: Yes DNR: No Discharge Level of Care: Skilled Communicable Disease: No Discharge Prognosis: Improving Lines: None Urinary Catheter: No Medications and DC Order Prescriptions: Continued Eliquis 5 mg tablet 5 mg PO BID Qty: 180 3RF losartan 100 mg tablet 100 mg PO QAM Qty: 90 3RF flecainide 150 mg tablet 150 mg PO BID Qty: 180 3RF Rx Instructions: TAKE 1 TABLET BY MOUTH EVERY 12 HOURS silodosin [Rapaflo] 8 mg capsule 8 mg PO QPM Qty: 90 1RF dutasteride 0.5 mg capsule 0.5 mg PO DAILY multivitamin [Multiple Vitamins] tablet 1 tab PO QAM zinc gluconate 50 mg tablet 25 mg PO QAM carvedilol 3.125 mg tablet 3.125 mg PO BID Qty: 60 2RF Rx Instructions: must administer with a meal/food cefadroxil 500 mg capsule 500 mg PO BID 10 Days Qty: 20 0RF tavaborole 5 % solution with applicator 1 applic topical DAILY ascorbic acid (vitamin C) [Vitamin C] 500 mg Tablet 500 mg PO QAM cholecalciferol (vitamin D3) [Vitamin D3] 25 mcg (1,000 unit) tablet 1,000 unit PO QAM sennosides [Senokot] 8.6 mg tablet 8.6 mg PO BID PRN (Reason: constipation) Qty: 30 0RF cyanocobalamin (vitamin B-12) [Vitamin B-12] 500 mcg Tablet 500 mcg PO QAM Patient Comments: YOU CAN CHEW IT BUT I JUST SWALLOW IT polyethylene glycol 3350 [Miralax] 17 gram Powder In Packet 17 g PO QAM Patient Comments: MOSTLY EVERY MORNING oxycodone 5 mg Tablet 5 mg PO Q4H PRN (Reason: pain) Qty: 30 0RF acetaminophen 325 mg Tablet 650 mg PO Q4 PRN (Reason: GENERAL DISCOMFORT) PreserVision AREDS-2 250-90-40-1 mg Capsule 1 tab PO BID solifenacin [Vesicare] 5 mg tablet 5 mg PO QAM Changed furosemide 40 mg tablet 40 mg PO DAILY Qty: 0 0RF Rx Instructions: Take with potassium supplement (20 meq) potassium chloride 20 mEq tablet,ER particles/crystals 20 meq PO DAILY Qty: 0 0RF Discharge Orders: Discharge Order (Routine); Ordered 04/06/24 Ordered By: Arelis Vargas/Other Patient Handouts: Heart Failure Dc Admission Data Admit Date/Time: 04/01/24 23:01 Attending Provider: Felicia Landa Admit Provider: Jamilah Hopkins Primary Care Provider: Srinath Christianson Other Providers: Jamilah Hopkins; Karina Valentin Hospital Stay Data Consultations 04/01/24 22:28 ED Decision to Admit Stat 04/06/24 10:08 [facility] Referral Routine Diagnostic Imagining Performed Hip/Pelvis X-Ray 04/01/24 21:23 XR hip LT 2V w pelvis CLINICAL HISTORY: Left hip pain. Postoperative evaluation. COMPARISON: Pelvis and left hip radiograph March 20, 2024. FINDINGS: Alignment of the total left hip arthroplasty is anatomic. There is no periprosthetic fracture or lucency. There are no unexpected radiopaque foreign bodies. Visualized portions of the right hip arthroplasty are unremarkable. There are no fractures within the pelvis. IMPRESSION: 1. No fractures within the pelvis or hips. 2. Intact total left hip arthroplasty. No periprosthetic fracture. ACT 112: Negative or not required by law. Electronically signed by: Evin Lord M.D. 04/02/2024 6:43 AM Pending Results Patient Have Any Pending Studies at Discharge: No Discharge Instructions Given to Patient (Per Discharging Provider) Mr. Salomon, Bipin were hospitalized after increasing weakness since discharge from rehab. You were also found to have an exacerbation of your heart failure - thankfully you responded to diuretics and have lost some of your water weight. It is important that you take your lasix every day and follow a low sodium diet. Recommend follow up with Sherrie Bowers in the heart failure clinic as your regimen may need to be further adjusted. Recommendations: * Lasix 40mg daily (with potassium supplementation) * daily STANDING weights - call Heart Failure clinic if gaining more than 2# in one day or 5# in one week * continue cefadroxil BID through 03/11 for your hip * Follow up with PCP within one week of d/c from rehab Call your Primary Care doctor if any of the following symptoms or problems start or get worse: * Shortness of breath or difficulty breathing * Wake up at night short of breath * Chest pain * Cough * Swelling of your hands, feet, or legs * More fatigued or tired with your normal activity * Palpitations - sudden fast heart beats WEIGHT * Weigh yourself every morning after using the bathroom. * Use the same scale. * Wear the same amount of clothing. * Write your weight down on a chart. * Call your Primary Care doctor if you gain more than 2-3 pounds in 1-2 days. MEDICATIONS * Use this discharge instruction sheet for medication instructions. * Take your medications at the time your doctor ordered. * Do not skip a dose of your medicines. * If you miss a dose of medicine, take it as soon as possible, but DO NOT DOUBLE A DOSE. * Read your medicine information when you get home. * Know all of the side effects of your medicine. If in doubt, ask your pharmacist * Call your Primary Care doctor's office if you have any side effects. * Be sure all of your doctors know what medicine and herbs you take (including cold, flu, and herbal medicine). Take the following with you to your follow-up doctor appointments: * Weight Chart * Medication List * List of questions Do not drink excessive alcohol, beer or wine. Supervising Physician Co-Signing Physician Notes PA Supervision Note: I personally saw and examined the patient. I verified all francisco points and agree with KATIE Benoit with the following exceptions and/or additions: S-Pt feeling much better, legs far less swollen, denies SOB. O- Vitals reviewed Gen: [AAOx3, NAD] HEENT: [anicteric sclerae, EOMI] CV: [RRR no mgr nl S1S2] Pulm: [CTAB no wcr] Ext: [1+ edema legs bilat], left hip with incision c/d/i with steri strips in place, no drainage Skin: [no rashes, warm/dry] Neuro: [full strength throughout] CBC, BMP reviewed A/P-83 yo male here with acute on chronic HFmrEF after recent hip replacement surgery. DIuresed, doing much better Plan to continue scheduled daily lasix, close f/u with CHF clinic Hip does not appear infected-finish out course of po abx as per Ortho Total Time Total Time Spent Total Time Spent (In Minutes): Time spent day of discharge 35 minutes including direct patient care, medication reconciliation, documentation, review of labs and images, and coordination of care. Coding Level of Care Code 70860 INP/OBS DISCH >30 MIN Diagnoses Status post left hip replacement Z96.642 Edema of both legs R60.0 Anemia D64.9
[2024-04-06] MEDS: FUROSEMIDE 40 MG TAB PO STA (10:38)
[2024-04-06 15:46] VITALS: BP 155/86; PULSE 96
== END 2024-04-06 15:56 | DRG 291 ==
LOC: ED 21:03 → SUATTDRO 22:57 → 3W 22:57 → SUATTDRO 23:01 → 3W 23:32

== ENCOUNTER 2024-06-07 15:23 | Inpatient (IN) ==
--- NOTE | 2024-06-07 16:28 | XRay Report ---
Chest radiograph, one view History: Weakness Comparison: 01/16/2024 Findings: Single AP view of the chest performed. No focal consolidation or pleural effusion. No pneumothorax. The cardiomediastinal silhouette is within normal limits. Normal pulmonary vascularity. No evidence for lymphadenopathy. No visualized bony or soft tissue abnormality. Degenerative changes of the thoracic spine. Impression: The right costophrenic angle is not within the field of view. Normal chest radiograph Electronically signed by Garcia Shepherd 06-07-2024 4:28 PM
--- NOTE | 2024-06-07 16:37 | Emergency Department Note ---
Impression & Plan Scrotal swelling, Acute orchitis, Acute UTI, Failure of outpatient treatment ED Provider Note NAME: HILARIO FAUSTIN AGE: 83 SEX: M : 1940 ARRIVES VIA: Walk-In INFORMANT: [Patient][] ED PROVIDER(S): [Angelito Boudreaux MD] CHIEF COMPLAINT: Testicular swelling HISTORY OF PRESENT ILLNESS: The patient is an 83-year-old male whose had 4 days of testicular swelling and pain. The patient states that a day or so before the swelling began, he had a cystoscopy. He was found to have a bladder polyp that is scheduled for resection in the near future. The day of the cystoscopy, the patient felt he may have a UTI. His urine had been foul-smelling for a few days before the procedure. The patient states that he did have an outpatient urinalysis performed 3 days ago, this grew E. coli based on my review of the records. The E. coli was quite sensitive. Patient also had an ultrasound done outpatient of the scrotal area 2 days ago. This showed a right epididymoorchitis. The patient states that he was given prescriptions for Keflex and doxycycline 2 days ago based on the results of his urinalysis and ultrasound. He does not feel he is much better. The right testicle is more painful he believes than the left. He has been weak and tired but there has been no fever, no vomiting. He has noticed some balance issues though and he feels a bit more short of breath and weaker. As he was not improving, he presents for evaluation. PMHx/PSHx/Social Hx: See Below PHYSICAL EXAM: GENERAL: Patient is in no acute distress. HEENT: No acute trauma, normocephalic atraumatic, mucous membranes moist, no nasal congestion. NECK: No stridor, no adenopathy, no meningismus, trachea is midline. LUNGS: Clear to auscultation bilaterally when listening anterior, no wheeze, no rhonchi, breath sounds equal. HEART: Irregular rhythm, no obvious murmur. Normal rate. ABDOMEN: Soft, nontender, no peritonitis. Obese EXTREMITIES: No cyanosis, full range of motion of all the joints without pain or difficulty. Moderate bilateral pedal edema NEUROLOGIC: Oriented x 3, no acute motor or sensory deficits, no focal weakness. SKIN: No jaundice, no diaphoresis. Groin: He has scrotal erythema and swelling. The scrotum is quite firm, especially on the right. The entire scrotum is tender and there is increased warmth. There is so much edema that the penile head is hard to visualize. DIFFERENTIAL DIAGNOSIS: Orchitis, epididymitis, hematoma, abscess, UTI, urinary retention, cellulitis, torsion, among others. EMERGENCY DEPARTMENT PROCEDURES: Bladder scan postvoid showed around 100 cc, no significant retention. MEDICAL DECISION MAKING: There is no leukocytosis. The patient is anemic however, this is a baseline finding when looking back at previous results. There is a normal platelet count. No renal failure or significant electrolyte abnormality. There were some liver enzyme elevations however, the bilirubin was normal. Lactic acid level is not elevated making severe sepsis less likely. ECG showed atrial fibrillation, no obvious ischemia. Cardiac enzyme testing x 1 was not consistent with acute cardiac injury. Chest x-ray did not show pneumonia or CHF. On exam, the patient's scrotum was swollen, red and tender. The patient was not retaining an excessive amount of urine, a Doe catheter was not needed. Bladder scan showed only 100 cc postvoid. The patient's urine culture results from a few days ago shows E. coli which is pansensitive. His recent outpatient testicular/scrotal ultrasound showed an epididymoorchitis. The patient has been on antibiotics for 2 days with really no improvement. I did speak with urology. The patient is to be hospitalized, he is going to be on IV antibiotic therapy. For now, no emergent urologic intervention was felt warranted. I did order for IV Zosyn as broad-spectrum coverage. I spoke with the patient and case management. The on-call hospitalist was consulted. Prior/Outside records/notes reviewed: Outpatient urinalysis results and culture, outpatient ultrasound results performed a few days ago. ECG per my interpretation: Indication was irregular rhythm. The ECG shows atrial fibrillation with a rate of 84. There is diffuse nonspecific ST change. There is baseline artifact. There is no acute ST elevation. No PVCs. The QTc is 467. Continuous Cardiac Monitoring per my interpretation: An order was placed for continuous cardiac monitoring. The monitor shows a rate of 60 with atrial fibrillation. Imaging/x-ray results per my interpretation: Chest x-ray shows some cardiomegaly and mild parenchymal congestion versus changes from his larger body habitus. No focal pneumonia. Chronic Medical/Social conditions affecting care: Advanced age. Care/Management discussed with: Urology-Dr. Elena. Case management and the on-call hospitalist. Level of care consideration(s): After review of the information above and other included data: --I believe the patient requires escalation of care to admission DISPOSITION: Admission Past Med/Surg History Problem List (Updated 06/07/24 @ 17:48 by Angelito Boudreaux MD) Failure of outpatient treatment (Acute) Acute UTI (Acute) Acute orchitis (Acute) Scrotal swelling (Acute) Elevated PSA (Chronic) Anemia Cardiomyopathy Osteoarthritis of left hip Lumbar disc disease with radiculopathy Lumbar degenerative disc disease Impaired mobility Pre-diabetes Vitamin B12 deficiency Mild cognitive disorder BMI 35.0-35.9,adult (Acute) 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 Macular degeneration early Impaired mobility using walker History of vitamin D deficiency borderline. Mild cognitive disorder sometimes forgetful/pt reports thinks age related. No neurology dx, no neurology. pt reports wellness cognitive test upcoming sometime 2023. Pre-diabetes pt denies Lumbar degenerative disc disease steroid injection for back December 26 2023 Overactive bladder Enlarged prostate Arthritis HTN (hypertension) controlled, stable per pt History of kidney stones (~2003) Rosacea SSS (sick sinus syndrome) follows with [facility]- [facility] Surgical History (Updated 06/05/24 @ 14:33 by Taylor Dallas PA-C) S/P epidural steroid injection (12/2023) Status post total hip replacement, bilateral (2023) 01/2024 and 03/26, using walker Hx of bilateral cataract extraction History of colonoscopy with polypectomy "Pre cancerous, got it all" H/O shoulder surgery (2004) right- 2004, repair of rotator cuff. Family History Son Esophageal reflux Brother Brain tumor Prostate cancer Unknown Nephrolithiasis Denies family history of Ovarian cancer Diabetes Myocardial infarction Breast cancer Lung cancer Colorectal cancer Hypertension Social History Smoking Status: Former smoker Tobacco Type: Cigarettes Age Started Using Tobacco: 16; Age Quit Using Tobacco: 21; packs per day: 0.25; Second Hand Exposure: No; Do You Dip or Chew Tobacco: No; Hx Alcohol Use: Yes Alcohol type: wine Alcohol Intake Frequency: 2-3 x/Week Hx Substance Use: No Preferred Language: Albanian Communication Ability: Effective Visual Impairment: Partially Limited Hearing Ability: Use of Hearing Aid 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 Beliefs That Will Affect Care: None marital status: Current Living Situation: Spouse current occupational status: employed How many Children do You have: 2 Feels Safe at Home: Yes Childhood Exposure to Second-Hand Smoke: No caffeine: Yes Dental Care, Regularly: Yes Physical Activity Frequency: Does not Exercise Seatbelt Use: always Sunscreen Use: Yes Assistive Devices: Cane, Hearing Aid - Bilateral and Walker Allergies Allergies Allergy/AdvReac Type Severity Reaction Status Date / Time morphine Allergy Severe Reddened Verified 06/07/24 17:24 face/Hot flashes/Tongue swelling chlorhexidine AdvReac Intermediate Rash Verified 06/07/24 17:24 lisinopril AdvReac Intermediate cough Verified 06/07/24 17:24 nebivolol [From Bystolic] AdvReac Unknown Unknown Verified 06/07/24 17:24 tamsulosin AdvReac Unknown Unknown Verified 06/07/24 17:24 Home Meds Home Medications Medication Instructions Recorded Confirmed multivitamin (Multiple Vitamins 1 tab PO QAM 03/05/19 06/07/24 tablet) ascorbic acid (vitamin C) 500 mg 500 mg PO QAM 11/29/20 06/07/24 tablet (Vitamin C) cyanocobalamin (vitamin B-12) 500 500 mcg PO QAM 08/15/21 06/07/24 mcg tablet (Vitamin B-12) polyethylene glycol 3350 17 gram 17 g PO QAM 08/15/21 06/07/24 oral powder packet (Miralax) cholecalciferol (vitamin D3) 25 1,000 unit PO QAM 11/09/21 06/07/24 mcg (1,000 unit) tablet (Vitamin D3) zinc gluconate 50 mg tablet 25 mg PO QAM 11/16/22 06/07/24 vit C 250 mg-vit E 90 mg-zinc 40 1 tab PO BID 01/14/24 06/07/24 mg-copper 1 [id number] capsule (PreserVision AREDS-2) bisacodyl 5 mg tablet,delayed 5 mg PO DAILY PRN Constipation 06/05/24 06/07/24 release (Dulcolax (bisacodyl)) dapagliflozin propanediol 10 mg 10 mg PO QAM 06/05/24 06/07/24 tablet (Farxiga) furosemide 40 mg tablet 40 mg PO DAILY edema 06/05/24 06/07/24 spironolactone 25 mg tablet 25 mg PO QAM 06/05/24 06/07/24 terbinafine HCl 250 mg tablet 250 mg PO QAM 06/05/24 06/07/24 Previous Rx's Medication Instructions Recorded apixaban 5 mg tablet (Eliquis) 5 mg PO BID #180 tabs 05/24/22 sennosides 8.6 mg tablet (Senokot) 8.6 mg PO BID PRN constipation #30 04/04/23 tabs losartan 100 mg tablet 100 mg PO QAM #90 tabs 07/11/23 flecainide 150 mg tablet 150 mg PO BID #180 tabs 10/17/23 carvedilol 3.125 mg tablet 3.125 mg PO BID #60 tabs 03/12/24 potassium chloride 20 mEq 20 meq PO DAILY USING FUROSEMIDE 05/21/24 tablet,extended release(part/cryst) #90 tabs dutasteride 0.5 mg capsule 0.5 mg PO DAILY #90 caps 05/28/24 solifenacin 5 mg tablet (Vesicare) 5 mg PO DAILY #90 tabs 05/28/24 doxycycline hyclate 100 mg tablet 100 mg PO BID 7 days #14 tabs 06/04/24 cephalexin 500 mg capsule 500 mg PO BID 7 days #14 caps 06/05/24 Results & Data (ED) Vital Signs Vital Signs - 24 hr 06/07/24 15:28 06/07/24 17:06 06/07/24 17:24 Temperature 36.6 C Temperature Source Temporal Artery Scan Pulse Rate 60 86 Pulse Rate [Finger] 90 Respiratory Rate 20 18 Respiratory Effort / Characteristics Non-Labored Respiratory Depth Normal Blood Pressure 129/74 Blood Pressure [Right Arm] 153/83 H Blood Pressure Mean 92 Blood Pressure Mean [Right Arm] 106 Pulse Oximetry 97 99 Oxygen Delivery Method Room Air Sepsis Recent Fever Within 48 Hours No Sepsis New/Unexplained Change in Mental Status N/A Sepsis Action Taken by Nursing No Action Required Home Medications Current Medication List: was personally reviewed by me Laboratory Data Attestation: I reviewed the patient's lab results. 06/07/24 16:35 06/07/24 16:35 Lab Results 06/07/24 Range/Units 16:35 WBC 8.21 (4.8-10.8) K/ul RBC 4.05 L (4.70-6.10) M/uL Hgb 11.6 L (14.0-18.0) g/dl Hct 35.9 L (42.0-52.0) % MCV 88.6 (80.0-100.0) fL MCH 28.6 (25.0-34.0) pg MCHC 32.3 (32.0-36.0) g/dL RDW Std Deviation 47.1 H (36.4-46.3) fL RDW Coeff of Loretta 14.5 (11.5-14.5) % Plt Count 256 (130-400) K/uL MPV 9.4 (9.4-12.4) fL Immature Gran % (Auto) 0.5 % Neut % (Auto) 81.1 % Lymph % (Auto) 5.2 % Hood % (Auto) 12.1 % Eos % (Auto) 0.7 % Baso % (Auto) 0.4 % Neut # (Auto) 6.66 H (1.40-6.50) K/uL Lymph # (Auto) 0.43 L (1.20-3.40) K/uL Hood # (Auto) 0.99 H (0.11-0.59) K/uL Eos # (Auto) 0.06 (0.00-0.50) K/uL Baso # (Auto) 0.03 (0.00-0.20) K/uL Immature Gran # (Auto) 0.04 (0.01-0.20) K/uL Sodium 133 L (136-145) mmol/L Potassium 4.1 (3.5-5.1) mmol/L Chloride 99 (98-107) mmol/L Carbon Dioxide 30 (21-32) mmol/L Anion Gap 4 (3-11) BUN 31 H (6-23) mg/dl Creatinine 1.12 (0.6-1.4) mg/dl Est Cr Clr Drug Dosing 62.3 ml/min eGFR 64.78 BUN/Creatinine Ratio 27.7 H (10-20) Glucose 101 H (70-99(Fasting)) mg/dl Lactate 0.6 (0.4-2.0) mmol/L Calcium 9.4 (8.6-10.3) mg/dl Magnesium 2.3 (1.7-2.4) mg/dl Total Bilirubin 1.0 (0.2-1.0) mg/dl AST 44 H (13-39) U/L ALT 54 H (7-52) U/L Alkaline Phosphatase 118 H (34-104) U/L Troponin I High Sens 14.6 (0-20) pg/ml Total Protein 6.9 (6.0-8.3) gm/dl Albumin 3.7 (3.4-5.0) gm/dl Globulin 3.2 (2.5-4.0) gm/dl Albumin/Globulin Ratio 1.2 (0.9-2) Administered Medications Discontinued Medications Piperacillin Sod/Tazobactam Sod (Zosyn) 4.5 gm in 100 mls @ 200 mls/hr IV NOW ONE Stop: 06/07/24 16:49 Last Admin: 06/07/24 17:16 Dose: 200 mls/hr Documented By: Imaging Data Radiologist's Impression: Chest X-Ray 06/07/24 16:03 Chest radiograph, one view History: Weakness Comparison: 01/16/2024 Findings: Single AP view of the chest performed. No focal consolidation or pleural effusion. No pneumothorax. The cardiomediastinal silhouette is within normal limits. Normal pulmonary vascularity. No evidence for lymphadenopathy. No visualized bony or soft tissue abnormality. Degenerative changes of the thoracic spine. Impression: The right costophrenic angle is not within the field of view. Normal chest radiograph Electronically signed by Garcia Shepherd 06-07-2024 4:28 PM Patient: HILARIO FAUSTIN Admit Date: 06/05/24 MR#: [id number] Address1: [place] [facility] Acct ID:[id number] Address2: Date: 1940 [facility] Zip: [place] [address] Age: 83 Location: [facility] Sex: M Room/Bed: Att Phy: Mone Rosario CRNP Diagnosis: N50.819 - Testicular pain, unspecified [place] Phy: Srinath Christianson DO Service Date: 06/05/24 [facility] Phy: Interpreting Phy: Evin Lord MDAit Phy: Ordering Phy: Mone Rosario CRNP cc: ~ SCROTAL ULTRASOUND CLINICAL HISTORY: N50.819 - Testicular pain, unspecified COMPARISON STUDY: Testicular ultrasound January 19, 2011. TECHNIQUE: Grayscale and color and duplex Doppler sonography of the scrotum was performed. FINDINGS: The right testis measures 4.7 x 3.8 x 3.6 cm and the left measures 4.2 x 3.1 x 3 cm. There is asymmetric increased vascularity of the right testis. The right epididymis is enlarged and hypervascular when compared to the left. A small to moderate complex right hydrocele contains numerous septations. There is a small complex left hydrocele. Marked scrotal edema is present. No fluid collections are identified. IMPRESSION: 1. Findings suggestive of right-sided epididymoorchitis. Findings will be called/faxed to the ordering provider at time of dictation. 2. Small to moderate size complex right hydrocele which contains numerous septations. 3. Marked scrotal edema. Discharge Plan Visit Data Chief Complaint: Swelling/Edema to Extremity Stated Complaint: SEVERE TESTICULAR EDEMA ED Provider: Angelito Boudreaux Discharge Problem: Scrotal swelling, Acute orchitis, Acute UTI, Failure of outpatient treatment Patient Disposition: Admitted As Inpatient Condition: Fair Forms Stand Alone Forms: My [employer] Prescriptions Prescriptions: No Action Eliquis 5 mg tablet 5 mg PO BID Qty: 180 3RF Rx Instructions: 06/07/24 : this med currently on hold for possible surgery. losartan 100 mg tablet 100 mg PO QAM Qty: 90 3RF flecainide 150 mg tablet 150 mg PO BID Qty: 180 3RF Rx Instructions: TAKE 1 TABLET BY MOUTH EVERY 12 HOURS potassium chloride 20 mEq tablet,ER particles/crystals 20 meq PO DAILY Qty: 90 3RF doxycycline hyclate 100 mg tablet 100 mg PO BID 7 Days Qty: 14 0RF cephalexin 500 mg capsule 500 mg PO BID 7 Days Qty: 14 0RF Rx Instructions: begin 06/05/24 x 7 days multivitamin [Multiple Vitamins] tablet 1 tab PO QAM zinc gluconate 50 mg tablet 25 mg PO QAM carvedilol 3.125 mg tablet 3.125 mg PO BID Qty: 60 2RF Rx Instructions: must administer with a meal/food dutasteride 0.5 mg capsule 0.5 mg PO DAILY Qty: 90 3RF solifenacin [Vesicare] 5 mg tablet 5 mg PO DAILY Qty: 90 3RF ascorbic acid (vitamin C) [Vitamin C] 500 mg Tablet 500 mg PO QAM cholecalciferol (vitamin D3) [Vitamin D3] 25 mcg (1,000 unit) tablet 1,000 unit PO QAM sennosides [Senokot] 8.6 mg tablet 8.6 mg PO BID PRN (Reason: constipation) Qty: 30 0RF cyanocobalamin (vitamin B-12) [Vitamin B-12] 500 mcg Tablet 500 mcg PO QAM Patient Comments: YOU CAN CHEW IT BUT I JUST SWALLOW IT polyethylene glycol 3350 [Miralax] 17 gram Powder In Packet 17 g PO QAM Patient Comments: MOSTLY EVERY MORNING PreserVision AREDS-2 250-90-40-1 mg Capsule 1 tab PO BID terbinafine HCl 250 mg tablet 250 mg PO QAM bisacodyl [Dulcolax (bisacodyl)] 5 mg Tablet,Delayed Release (Dr/Ec) 5 mg PO DAILY PRN (Reason: Constipation) dapagliflozin propanediol [Farxiga] 10 mg tablet 10 mg PO QAM furosemide 40 mg tablet 40 mg PO DAILY Rx Instructions: Take with potassium supplement (20 meq) spironolactone 25 mg tablet 25 mg PO QAM Referrals Referrals: Srinath Christianson DO [Primary Care Provider] -
[2024-06-07 16:53] LABS: Basophils # (auto) 0.03 K/uL (0.00-0.20); Basophils % (auto) 0.4 %; Eosinophils # (auto) 0.06 K/uL (0.00-0.50); Eosinophils % (auto) 0.7 %; Hematocrit (blood only) 35.9 % (42.0-52.0); Hemoglobin 11.6 g/dl (14.0-18.0); Immature Granulocytes # (auto) 0.04 K/uL (0.01-0.20); Immature Granulocytes % (auto) 0.5 %; Lymphocytes # (auto) 0.43 K/uL (1.20-3.40); Lymphocytes % (auto) 5.2 %; Mean Corpuscular Hemoglobin 28.6 pg (25.0-34.0); Mean Corpuscular Hgb Conc 32.3 g/dL (32.0-36.0); Mean Corpuscular Volume 88.6 fL (80.0-100.0); Mean Platelet Volume 9.4 fL (9.4-12.4); Monocytes # (auto) 0.99 K/uL (0.11-0.59); Monocytes % (auto) 12.1 %; Neutrophils # (auto) 6.66 K/uL (1.40-6.50); Neutrophils % (auto) 81.1 %; Platelet Count 256 K/uL (130-400); RDW Coefficient of Variation 14.5 % (11.5-14.5); RDW Standard Deviation 47.1 fL (36.4-46.3); Red Blood Count 4.05 M/uL (4.70-6.10); White Blood Count 8.21 K/ul (4.8-10.8)
[2024-06-07 17:11] LABS: Albumin Globulin Ratio 1.2 (0.9-2); Albumin Level 3.7 gm/dl (3.4-5.0); BUN Creatinine Ratio 27.7 (10-20); Calcium 9.4 mg/dl (8.6-10.3); Creatinine Clr Calc Pharmacy 62.3 ml/min; Globulin 3.2 gm/dl (2.5-4.0); Magnesium 2.3 mg/dl (1.7-2.4); Potassium 4.1 mmol/L (3.5-5.1); Total Protein 6.9 gm/dl (6.0-8.3)
[2024-06-07] MEDS: PIPERACILLIN/TAZOBACTAM 4.5 GM/100 ML BAG IV ONE (17:16)
[2024-06-07 17:17] LABS: Troponin I High Sensitivity 14.6 pg/ml (0-20)
--- NOTE | 2024-06-07 17:34 | History & Physical Report ---
Date of Service June 07, 2024 Assessment & Plan (1) Acute orchitis: (2) Acute epididymitis: (3) Acute UTI: (4) Paroxysmal atrial fibrillation: (5) HFrEF (heart failure with reduced ejection fraction): Plan Patient is an 83-year-old male with a past medical history of of A-fib, HFrEF, sick sinus syndrome, hypertension. Patient presents today after failing outpatient treatment of oral antibiotics with Keflex and doxycycline for epididymoorchitis and UTI. Urology to evaluate patient 06/08/2024. #epididymoorchitis/UTI Failed outpatient treatment with Keflex and doxycycline Urine culture 06/04 showing E. coli pansensitive scrotal ultrasound 06/05 showing right sided epididymoorchitis, small/moderate right hydrocele, marked scrotal edema Not septic at this time, VSS, afebrile, no leukocytosis not currently in retention however urinary incontinence, nursing to use depends urology consulted; will see patient in a.m. 06/08 Zosyn in ED -> transition to Rocephin Blood cultures ordered #paroxysmal a fib patient in A-fib on admission, admitting EKG showing A-fib, rate 84 history of sick sinus syndrome when on beta-blockers previously; carvedilol and med list but patient does not take holding Eliquis since 06/04 in preparation for urology procedure 06/08 continue to hold Eliquis until eval by urology Continue flecainide #CHF takes Lasix 40 as needed with 20 mEq potassium Has not taken since 06/04 CXR without acute abnormalities Teds ordered for LE edema Heart healthy, low-sodium diet Continue to hold Lasix; appears dry continue Farxiga Chronic stable diagnoses: BPH - continue solifenacin athletes foot - continue terbinafine HTN - continue losartan VTE ppx: TEDs, may resume Eliquis 06/08 if no surgical intervention by urology Diet: heart healthy, low NA Dispo: med surg Admission and Anticipated Discharge Date Admission Date: 06/07/24 History of Present Illness Chief Complaint: testicular swelling Primary Care Provider: Srinath Christianson DO Patient is an 83-year-old male with a past medical history of of A-fib, HFrEF, sick sinus syndrome, hypertension. Patient presents today after failing outpatient treatment of oral antibiotics with Keflex and doxycycline for epididymoorchitis. Patient had a cystoscopy on the that showed a polyp, 1 day later he began with foul-smelling urine and testicular swelling. He was found to have UTI with pansensitive E. coli on 06/04. He stated the testicular swelling began around the second and has been increasing since. He had an outpatient ultrasound 06/05 that showed right sided epididymitis orchitis, small/moderate size complex right hydrocele, marked scrotal edema. He was treated for both this and UTI with Keflex and doxycycline that he started taking Saturday evening; he did take both this morning. He stated the antibiotics do not seem to be helping with the swelling, he no longer can use the bathroom due to the swelling and has been using depends. ER provider noted that he did a bladder scan and the patient is not retaining. The patient stated he was to have a procedure with urology tomorrow to biopsy the nodule. He endorses discomfort but denies pain. He stated ever since taking the antibiotics he has had dizziness and dyspnea on exertion. He is also felt weak. He denies fever, chills, chest pain, abdominal pain, nausea, vomiting, diarrhea. He has Lasix 40 Mg along with potassium supplements that he takes as needed; he states he sometimes takes these every day, sometimes every other day. He last took these on the and quit taking them due to the swelling he was experiencing. He denies worsening lower extremity edema. He has been holding his Eliquis since in preparation of his urology procedure tomorrow. He took all of his other home medications today. He denies nicotine use, uses alcohol socially. Denies past history of diabetes or previous VTE. Does not use oxygen or CPAP/BiPAP at baseline. Wishes to be full code at this time. He stated he does not take spironolactone or carvedilol. Allergies Allergy/AdvReac Type Severity Reaction Status Date / Time morphine Allergy Severe Reddened Verified 06/07/24 17:24 face/Hot flashes/Tongue swelling chlorhexidine AdvReac Intermediate Rash Verified 06/07/24 17:24 lisinopril AdvReac Intermediate cough Verified 06/07/24 17:24 nebivolol [From Bystolic] AdvReac Unknown Unknown Verified 06/07/24 17:24 tamsulosin AdvReac Unknown Unknown Verified 06/07/24 17:24 Home Medications Medication Instructions Recorded Confirmed Type multivitamin (Multiple Vitamins 1 tab PO QAM 03/05/19 06/07/24 History tablet) ascorbic acid (vitamin C) 500 mg 500 mg PO QAM 11/29/20 06/07/24 History tablet (Vitamin C) cyanocobalamin (vitamin B-12) 500 500 mcg PO QAM 08/15/21 06/07/24 History mcg tablet (Vitamin B-12) polyethylene glycol 3350 17 gram 17 g PO QAM 08/15/21 06/07/24 History oral powder packet (Miralax) cholecalciferol (vitamin D3) 25 1,000 unit PO QAM 11/09/21 06/07/24 History mcg (1,000 unit) tablet (Vitamin D3) apixaban 5 mg tablet (Eliquis) 5 mg PO BID #180 tabs 05/24/22 06/07/24 Rx zinc gluconate 50 mg tablet 25 mg PO QAM 11/16/22 06/07/24 History sennosides 8.6 mg tablet (Senokot) 8.6 mg PO BID PRN constipation #30 04/04/23 06/07/24 Rx tabs losartan 100 mg tablet 100 mg PO QAM #90 tabs 07/11/23 06/07/24 Rx flecainide 150 mg tablet 150 mg PO BID #180 tabs 10/17/23 06/07/24 Rx vit C 250 mg-vit E 90 mg-zinc 40 1 tab PO BID 01/14/24 06/07/24 History mg-copper 1 md-kjnvnw-umagic capsule (PreserVision AREDS-2) carvedilol 3.125 mg tablet 3.125 mg PO BID #60 tabs 03/12/24 06/07/24 Rx potassium chloride 20 mEq 20 meq PO DAILY USING FUROSEMIDE 05/21/24 06/07/24 Rx tablet,extended release(part/cryst) #90 tabs dutasteride 0.5 mg capsule 0.5 mg PO DAILY #90 caps 05/28/24 06/07/24 Rx solifenacin 5 mg tablet (Vesicare) 5 mg PO DAILY #90 tabs 05/28/24 06/07/24 Rx doxycycline hyclate 100 mg tablet 100 mg PO BID 7 days #14 tabs 06/04/24 06/07/24 Rx bisacodyl 5 mg tablet,delayed 5 mg PO DAILY PRN Constipation 06/05/24 06/07/24 History release (Dulcolax (bisacodyl)) cephalexin 500 mg capsule 500 mg PO BID 7 days #14 caps 06/05/24 06/07/24 Rx dapagliflozin propanediol 10 mg 10 mg PO QAM 06/05/24 06/07/24 History tablet (Farxiga) furosemide 40 mg tablet 40 mg PO DAILY edema 06/05/24 06/07/24 History spironolactone 25 mg tablet 25 mg PO QAM 06/05/24 06/07/24 History terbinafine HCl 250 mg tablet 250 mg PO QAM 06/05/24 06/07/24 History Past Med/Surg History Problem List (Updated 06/07/24 @ 18:15 by Elaine Hammer PA-C) HFrEF (heart failure with reduced ejection fraction) Paroxysmal atrial fibrillation (2013) no cardioversion Acute epididymitis Failure of outpatient treatment (Acute) Acute UTI (Acute) Acute orchitis (Acute) Scrotal swelling (Acute) Elevated PSA (Chronic) Anemia Cardiomyopathy Osteoarthritis of left hip Lumbar disc disease with radiculopathy Lumbar degenerative disc disease Impaired mobility Pre-diabetes Vitamin B12 deficiency Mild cognitive disorder BMI 35.0-35.9,adult (Acute) 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) Urge incontinence (Acute) Anticoagulant long-term use Medical History UTI (urinary tract infection) started on doxycycline today Urge incontinence wearing depends Cardiomyopathy Benign localized hyperplasia of prostate with urinary obstruction Anemia Testicular swelling severe swelling, had US today at [facility] Edema of both legs Paroxysmal atrial fibrillation (2013) no cardioversion Hypertension Neck problem limited rom. Macular degeneration early Impaired mobility using walker History of vitamin D deficiency borderline. Mild cognitive disorder sometimes forgetful/pt reports thinks age related. No neurology dx, no neurology. pt reports wellness cognitive test upcoming sometime 2023. Pre-diabetes pt denies Lumbar degenerative disc disease steroid injection for back December 26 2023 Overactive bladder Enlarged prostate Arthritis HTN (hypertension) controlled, stable per pt History of kidney stones (~2003) Rosacea SSS (sick sinus syndrome) follows with [facility]- [facility] [place] Surgical History (Updated 06/05/24 @ 14:33 by Taylor Dallas PA-C) S/P epidural steroid injection (12/2023) Status post total hip replacement, bilateral (2023) 01/2024 and 03/26, using walker Hx of bilateral cataract extraction History of colonoscopy with polypectomy "Pre cancerous, got it all" H/O shoulder surgery (2004) right- 2004, repair of rotator cuff. Family History Son Esophageal reflux Brother Brain tumor Prostate cancer Unknown Nephrolithiasis Denies family history of Ovarian cancer Diabetes Myocardial infarction Breast cancer Lung cancer Colorectal cancer Hypertension Social History Smoking Status: Former smoker Tobacco Type: Cigarettes Age Started Using Tobacco: 16; Age Quit Using Tobacco: 21; packs per day: 0.25; Second Hand Exposure: No; Do You Dip or Chew Tobacco: No; Hx Alcohol Use: Yes Alcohol type: wine Alcohol Intake Frequency: 2-3 x/Week Hx Substance Use: No Preferred Language: Occitan Communication Ability: Effective Visual Impairment: Partially Limited Hearing Ability: Use of Hearing Aid Ensemble Member Required: No Beliefs That Will Affect Care: None marital status: Current Living Situation: Spouse current occupational status: employed How many Children do You have: 2 Feels Safe at Home: Yes Childhood Exposure to Second-Hand Smoke: No caffeine: Yes Dental Care, Regularly: Yes Physical Activity Frequency: Does not Exercise Seatbelt Use: always Sunscreen Use: Yes Assistive Devices: Cane, Hearing Aid - Bilateral and Walker Review of Systems Review of Systems: see HPI Physical Exam Physical Exam: The patient is awake, alert and oriented 3, well developed and well nourished, normocephalic and atraumatic, in no acute distress. Non-toxic appearing. HEENT- EOMI, mucous membranes moist. Hearing grossly intact. Heart-normal S1 and S2. No murmurs, rubs or gallops. Lungs-clear bilaterally, no respiratory distress, no accessory muscle use. Abdomen-normal bowel sounds and soft. No ascites noted. Non-tender. Extremities- no clubbing, cyanosis. +1 pitting edema BL LE. Rheumatologic-normal range of motion. Psychiatric-normal affect. Genitourinary: exam with nursing present. Bilateral scrotal erythema, swelling, hardness. Tender to palpation. R>L. Results & Data Results & Data Vital Signs (Past 12 Hours) Vital Signs Temp Pulse Pulse Resp BP BP Pulse Ox 06/07/24 17:24 90 18 153/83 H 99 06/07/24 17:06 86 06/07/24 15:28 36.6 C 60 20 129/74 97 O2 Del Method 06/07/24 17:24 Room Air 06/07/24 17:06 06/07/24 15:28 Laboratory Results Reviewed CBC, CMP, lactate, Mg, troponin Diagnostic Findings reviewed CXR Medications Administered ED: Zosyn 4.5 ECG Additional Comments: A-fib, rate 84 Code Status & VTE Plan Code Status full VTE Prophylaxis Plan VTE Prophylaxis will be ordered: Yes Supervising Physician Co-Signing Physician Notes I personally examined the patient and verified all francisco points of history and exam, discussed case, and agree with decision making with Toro SOUZA scrotal swelling. just started abx saturday night (so this AM was essentially 48hrs dosing) no f/c/s. vitals noted nad sitting in bed comfortable appearing eating dinner and watching football. scrotum markedly swollen without crepitis. (+) erythema epididymoorchitis +/- scrotal cellulitis - pansensitive EColi - not clear that he truly failed outpt Rx given that he was only on it 48hrs. fortunately nontoxic appearing. ceftriaxone. urology consult. otherwise as above PG Care Time/CCT Total # of Minutes Spent Total Time Spent with Patient: Total time spent is greater than 50% in coordination of care (as documented) at patient's floor/unit and/or counseling patient: Coding Level of Care Code 83393 INT INP/OBS CARE 3/75MIN Diagnoses Acute orchitis N45.2 Acute epididymitis N45.1 Acute UTI N39.0 Paroxysmal atrial fibrillation I48.0 HFrEF (heart failure with reduced ejection fraction) I50.20
[2024-06-07] MEDS ORDERED: ACETAMINOPHEN 325 MG TAB PO PRN (20:56)
--- NOTE | 2024-06-07 21:22 | Urology Consultation ---
Date of Consultation June 07, 2024 Assessment & Plan (1) Acute epididymitis: Patient has been admitted on the hospitalist service. From a urologic perspective we recommend the following: Patient has been transitioned to antibiotics in form of Rocephin which should continue. He has had appropriate cultures sent. Culture data can be monitored and antibiotics be tailored based on these as well as his clinical response If patient's fails to show an adequate clinical response would recommend rep eating a urinalysis and urine culture and perhaps broadening his antibiotics but it is yet to be determined if this will be needed Will notify Dr. Kapoor of patient's admission as he was scheduled for urologic procedure on 06/08/2024 (2) Acute UTI: (3) Acute orchitis: History of Present Illness Reason for Consultation: Epididymitis/orchitis UTI Attending Physician: Alek Leblanc, DO History of Present Illness This is an 83-year-old male who presented [facility] secondary to swelling of his scrotum/testicles. Patient had a cystoscopy on June 012023. This procedure was performed by Dr. Kapoor of [facility] urology. During this procedure the patient was noted to have severe prostatic enlargement and patient was noted to have a papillary versus polypoid mass lesion in the bladder neck/right lateral lobe of the prostate. The patient does note that since his procedure was formed he was scheduled for a transurethral section of the prostate which was tentatively scheduled for 06/08/2024. The patient says that approximate 1 day after his procedure he started to have some foul-smelling urine as well as testicular swelling. He denied any fevers, shakes, or chills. He denied any abdominal pain. He denied any back or flank pain. He did have some dysuria. Patient says that he was started on antibiotics in form of doxycycline and Keflex with minimal improvement. Patient notes that his testicular swelling has gotten worse and he is having difficulty controlling his urine so he presented to the emergency department. Of note, the patient did have an ultrasound of his scrotum on 06/05/2024 that showed findings concerning for right-sided epididymal mitis/orchitis. The patient was noted to have a right sided hydrocele. Since arrival to the emergency department today the patient has had additional labs and imaging including a chest x-ray that showed no evidence of pneumonia. CBC revealed white blood cell count platelet count normal. Hemoglobin and hematocrit are 11.6 and 35.9. Chemistry profile shows sodium is 133 with normal potassium. His BUN had a slight elevation at 31 and his creatinine was 1.1. There is also noteworthy to mention that the patient did have a urine culture sent on 06/04/2024 that showed E. coli which was pansensitive. At the time of my interview he was resting comfortably in bed he was in no distress. Allergies Allergy/AdvReac Type Severity Reaction Status Date / Time morphine Allergy Severe Reddened Verified 06/07/24 17:24 face/Hot flashes/Tongue swelling chlorhexidine AdvReac Intermediate Rash Verified 06/07/24 17:24 lisinopril AdvReac Intermediate cough Verified 06/07/24 17:24 nebivolol [From Bystolic] AdvReac Unknown Unknown Verified 06/07/24 17:24 tamsulosin AdvReac Unknown Unknown Verified 06/07/24 17:24 Home Medications Medication Instructions Recorded Confirmed Type multivitamin (Multiple Vitamins 1 tab PO QAM 03/05/19 06/07/24 History tablet) ascorbic acid (vitamin C) 500 mg 500 mg PO QAM 11/29/20 06/07/24 History tablet (Vitamin C) cyanocobalamin (vitamin B-12) 500 500 mcg PO QAM 08/15/21 06/07/24 History mcg tablet (Vitamin B-12) polyethylene glycol 3350 17 gram 17 g PO QAM 08/15/21 06/07/24 History oral powder packet (Miralax) cholecalciferol (vitamin D3) 25 1,000 unit PO QAM 11/09/21 06/07/24 History mcg (1,000 unit) tablet (Vitamin D3) apixaban 5 mg tablet (Eliquis) 5 mg PO BID #180 tabs 05/24/22 06/07/24 Rx zinc gluconate 50 mg tablet 25 mg PO QAM 11/16/22 06/07/24 History sennosides 8.6 mg tablet (Senokot) 8.6 mg PO BID PRN constipation #30 04/04/23 06/07/24 Rx tabs losartan 100 mg tablet 100 mg PO QAM #90 tabs 07/11/23 06/07/24 Rx flecainide 150 mg tablet 150 mg PO BID #180 tabs 10/17/23 06/07/24 Rx vit C 250 mg-vit E 90 mg-zinc 40 1 tab PO BID 01/14/24 06/07/24 History mg-copper 1 gu-hlqmfv-fytavs capsule (PreserVision AREDS-2) carvedilol 3.125 mg tablet 3.125 mg PO BID #60 tabs 03/12/24 06/07/24 Rx potassium chloride 20 mEq 20 meq PO DAILY USING FUROSEMIDE 05/21/24 06/07/24 Rx tablet,extended release(part/cryst) #90 tabs dutasteride 0.5 mg capsule 0.5 mg PO DAILY #90 caps 05/28/24 06/07/24 Rx solifenacin 5 mg tablet (Vesicare) 5 mg PO DAILY #90 tabs 05/28/24 06/07/24 Rx doxycycline hyclate 100 mg tablet 100 mg PO BID 7 days #14 tabs 06/04/24 06/07/24 Rx bisacodyl 5 mg tablet,delayed 5 mg PO DAILY PRN Constipation 06/05/24 06/07/24 History release (Dulcolax (bisacodyl)) cephalexin 500 mg capsule 500 mg PO BID 7 days #14 caps 06/05/24 06/07/24 Rx dapagliflozin propanediol 10 mg 10 mg PO QAM 06/05/24 06/07/24 History tablet (Farxiga) furosemide 40 mg tablet 40 mg PO DAILY edema 06/05/24 06/07/24 History spironolactone 25 mg tablet 25 mg PO QAM 06/05/24 06/07/24 History terbinafine HCl 250 mg tablet 250 mg PO QAM 06/05/24 06/07/24 History Patient History Medical History UTI (urinary tract infection) started on doxycycline today Urge incontinence wearing depends Cardiomyopathy Benign localized hyperplasia of prostate with urinary obstruction Anemia Testicular swelling severe swelling, had US today at [facility] Edema of both legs Hypertension Neck problem limited rom. Macular degeneration early Impaired mobility using walker History of vitamin D deficiency borderline. Mild cognitive disorder sometimes forgetful/pt reports thinks age related. No neurology dx, no neurology. pt reports wellness cognitive test upcoming sometime 2023. Pre-diabetes pt denies Lumbar degenerative disc disease steroid injection for back December 26 2023 Overactive bladder Enlarged prostate Arthritis HTN (hypertension) controlled, stable per pt History of kidney stones (~2003) Rosacea SSS (sick sinus syndrome) follows with [facility] S/P epidural steroid injection (12/2023) Status post total hip replacement, bilateral (2023) 01/2024 and 03/26, using walker Hx of bilateral cataract extraction History of colonoscopy with polypectomy "Pre cancerous, got it all" H/O shoulder surgery (2004) right- 2005, repair of rotator cuff. Family History Son Esophageal reflux Brother Brain tumor Prostate cancer Unknown Nephrolithiasis Denies family history of Ovarian cancer Diabetes Myocardial infarction Breast cancer Lung cancer Colorectal cancer Hypertension Social History Smoking Status: Former smoker Tobacco Type: Cigarettes Age Started Using Tobacco: 16; Age Quit Using Tobacco: 21; packs per day: 0.25; Second Hand Exposure: No; Do You Dip or Chew Tobacco: No; Hx Alcohol Use: Yes Alcohol type: wine Alcohol Intake Frequency: 2-3 x/Week Hx Substance Use: No Preferred Language: Belizean Communication Ability: Effective Visual Impairment: Partially Limited Hearing Ability: Use of Hearing Aid Clinical Education Coordinator Required: No Beliefs That Will Affect Care: None marital status: Current Living Situation: Spouse current occupational status: employed How many Children do You have: 2 Feels Safe at Home: Yes Childhood Exposure to Second-Hand Smoke: No caffeine: Yes Dental Care, Regularly: Yes Physical Activity Frequency: Does not Exercise Seatbelt Use: always Sunscreen Use: Yes Assistive Devices: Cane, Hearing Aid - Bilateral and Walker Review of Systems Review of Systems: All systems reviewed & are unremarkable except as noted in HPI & below Physical Exam Constitutional: WD/WN, vitals as above Eyes: no conjunctival abnormality ENMT: Ears: no hearing impairment and no external ear abnormality Mouth: no oropharynx abnormality Neck: trachea midline Respiratory: normal respiratory effort; no respiratory distress and no labored breathing Cardiovascular: Rate/Rhythm: regular rate and regular rhythm Gastrointestinal (Abdomen): Soft and nontender Musculoskeletal: No calf tenderness Skin: no rashes Neurologic: moves all extremities Patient ambulates with the aid of a walker Psychiatric: A+Ox3, euthymic affect Genitourinary: Patient's genital area was examined. Patient had marked swelling of his testicles. They are tender to palpation. I cannot palpate any discrete masses. There are no open areas or areas of drainage. There are no areas of eschar on the scrotum or perineal area. There is no CVA tenderness with percussion bilaterally Results & Data Vital Signs (Past 12 Hours) Vital Signs Temp Pulse Pulse Resp BP BP Pulse Ox 06/07/24 21:01 36.5 C 86 16 136/77 100 06/07/24 19:30 81 18 156/87 H 99 06/07/24 17:24 90 18 153/83 H 99 06/07/24 17:06 86 06/07/24 15:28 36.6 C 60 20 129/74 97 O2 Del Method 06/07/24 21:01 Room Air 06/07/24 19:30 Room Air 06/07/24 17:24 Room Air 06/07/24 17:06 06/07/24 15:28 PG Care Time/CCT Total # of Minutes Spent Total Time Spent with Patient: Total time spent is greater than 50% in coordination of care (as documented) at patient's floor/unit and/or counseling patient: Coding Level of Care Code 26416 INT INP/OBS CARE 3/75MIN Diagnoses Acute epididymitis N45.1 Acute UTI N39.0 Acute orchitis N45.2
[2024-06-07] MEDS: FLECAINIDE ACETATE 100 MG TABLET PO SCH (22:54)
[2024-06-07] MEDS: CEROVITE ADV FORMULA TAB PO SCH (22:54)
[2024-06-07] MEDS: cefTRIAXone SODIUM 2,000 MG/50 ML BAG IV SCH (23:01)
--- NOTE | 2024-06-08 06:55 | Hospitalist Progress Note ---
Date of Service June 08, 2024 Assessment & Plan (1) Acute epididymitis: (2) Acute UTI: (3) Acute orchitis: Plan Mr. Mcpherson is an 83-year-old male with a past medical history of of A-fib, HFrEF, sick sinus syndrome, hypertension. Patient presents today after failing outpatient treatment of oral antibiotics with Keflex and doxycycline for epididymoorchitis and UTI. Urology to evaluate patient 06/08/2024. #Epididymoorchitis/UTI Not septic at this time, VSS, afebrile, no leukocytosis Urology on board:appreciate recs Continue Rocephin. Blood CS awaiting #BPH with LUTS TURP ongoing today. #Paroxysmal a fib Admitting EKG showing A-fib, rate 84 Continue flecainide, Elliquis on hold for procedure. #CHF: C-XR without acute abnormalities Last Echo: 06/26: EF 45-50% Heart healthy, low-sodium diet Continue to hold Lasix; appears dry Continue Farxiga #Chronic stable diagnoses: HTN - continue losartan VTE ppx: TEDs, will resume Elliquis after procedure. Diet: heart healthy, low NA Dispo: DC to home Admission and Anticipated Discharge Date Admission Date: June 07, 2024 Supervising Physician Co-Signing Physician Notes Attending Physician Supervision Note: I independently interviewed and examined the patient and verified the francisco history and physical, reviewed labs and image studies and agree with findings and care plan noted above. Underwent TURP/bladder outlet mass resection Denied any concerns. vitals noted nad sitting in bed comfortable, RRR, CTA, Abdomen soft. Urinary catheter in place Epididymoorchitis - pansensitive EColi - zosyn. Blood cx neg. Severe LOPEZ and Bladder neck mass - s/p TURP and mass resection 06/08. -could d/c finasteride now - per urology HFmrEF/PAF - lasix/spironolactone on hold. Apixaban - to be resumed once cleared by surgery. continue flecainide Continue Losartan Coreg on hold - resume once BP allows. Prediabetes - farxiga on hold Mild cognitive deficit - supportive care. otherwise as above Subjective This AM Mr. Chino was at OR, did not meet him on floor. Results & Data Results & Data Vital Signs (Past 12 Hours) Vital Signs Temp Pulse Resp BP Pulse Ox O2 Del Method 06/07/24 23:21 36.5 C 86 16 136/77 100 Room Air 06/07/24 21:01 36.5 C 86 16 136/77 100 Room Air 06/07/24 19:30 81 18 156/87 H 99 Room Air Resident Activity Tracking Resident Involvement: Resident Care Provided Care Provided: Adult Hospital Medicine
[2024-06-08 07:46] LABS: Basophils # (auto) 0.04 K/uL (0.00-0.20); Basophils % (auto) 0.5 %; Eosinophils # (auto) 0.11 K/uL (0.00-0.50); Eosinophils % (auto) 1.4 %; Hemoglobin 10.8 g/dl (14.0-18.0); Immature Granulocytes # (auto) 0.03 K/uL (0.01-0.20); Immature Granulocytes % (auto) 0.4 %; Lymphocytes # (auto) 0.52 K/uL (1.20-3.40); Lymphocytes % (auto) 6.4 %; Mean Corpuscular Hemoglobin 27.6 pg (25.0-34.0); Mean Corpuscular Hgb Conc 30.9 g/dL (32.0-36.0); Mean Corpuscular Volume 89.3 fL (80.0-100.0); Mean Platelet Volume 9.5 fL (9.4-12.4); Monocytes # (auto) 1.05 K/uL (0.11-0.59); Neutrophils # (auto) 6.35 K/uL (1.40-6.50); Neutrophils % (auto) 78.3 %; Platelet Count 251 K/uL (130-400); RDW Coefficient of Variation 14.8 % (11.5-14.5); Red Blood Count 3.92 M/uL (4.70-6.10)
[2024-06-08] MEDS ORDERED: GENTAMICIN CONSULT ACTIVE PRN (08:03)
[2024-06-08 08:05] LABS: Creatinine Clr Calc Pharmacy 57.8 ml/min; Magnesium 2.3 mg/dl (1.7-2.4); Potassium 4.1 mmol/L (3.5-5.1)
[2024-06-08] MEDS: terbinafine HCL 250 MG TAB PO SCH (08:05)
[2024-06-08] MEDS: LOSARTAN POTASSIUM 50 MG TAB PO SCH (08:05)
[2024-06-08] MEDS: FINASTERIDE 5 MG TAB PO SCH (08:05)
[2024-06-08] MEDS: CYANOCOBALAMIN (B-12) 500 MCG TABLET PO SCH (08:05)
[2024-06-08] MEDS: OXYBUTYNIN CHLORIDE XL 5 MG TABCR PO SCH (08:05)
--- NOTE | 2024-06-08 08:09 | Urology Progress Note ---
Date of Service June 08, 2024 Assessment & Plan (1) Acute orchitis: (2) Acute epididymitis: (3) HFrEF (heart failure with reduced ejection fraction): (4) Paroxysmal atrial fibrillation: (5) Scrotal swelling: (6) Benign localized hyperplasia of prostate with urinary obstruction: (7) Bladder mass: (8) Bladder outlet obstruction: (9) Urge incontinence: (10) Benign localized hyperplasia of prostate with urinary obstruction: Plan Patient with severe bladder outlet obstruction possible bladder mass versus prostate mass with significant obstructive issues and prostate enlargement. Patient developed UTI issues after assessment in the office. Had been placed on oral antibiotics. Patient developed significant epididymitis concurrently. Had additional antibiotic called in however over the weekend pain and swelling became more significant came to the ER for evaluation. Scrotal ultrasound found complex hydrocele likely reactive to significant epididymitis. Reviewed extensively different options moving forward. Labs and vitals were all reviewed. Patient has been afebrile since admitted. Current temp 36.4. Oxygen saturation 97% on room air respirations 16 pulse 83 and blood pressure 165/103. Patient's labs and vitals were all reviewed PSA from last visit was 4.652. Creatinine was 1.2 white count 8.1. Patient has been on IV antibiotics. Has been slowly recovering still has significant swelling. Has developed incontinence issues secondary to his chronic outlet obstruction as well as the significant swelling which has become bothersome. Reviewed extensively options. Discussed continued observation with IV antibiotics and supportive care and monitoring. Discussed options to move forward with surgical procedure to alleviate obstruction as well as to place catheter. Reviewed different options otherwise. Reviewed continued IV antibiotic u tilization and close monitoring. Extensive review of risk and benefits. Discussed surgical risks and benefits. Multiple questions answered. Reviewed options moving forward. Will plan to move forward with procedure. Will likely need observation after procedure with close monitoring and continued IV antibiotics. Will likely need catheter for 1 to 2 weeks after procedure. Admission and Anticipated Discharge Date Admission Date: June 07, 2024 Subjective Patient admitted with Bladder outlet obstruction epididymitis and discomfort. Patient is afebrile. Had been placed on antibiotics last week for UTI developed epididymitis and had an additional antibiotic sent in. Had grown E. coli in the urine. Has severe obstructive issues with possible mass within the bladder/bladder neck/prostate and significant prostate enlargement. Has been undergoing supportive care and antibiotic therapy with oral medications, IV medications, IV fluids, and oral intake. Has considerable swelling of the scrotum but decreasing pain. Is doing better without considerable increase in pain or major issues. Has not developed severe vomiting or other issues. Has not experienced fever or chills. Has been tolerating oral medications. Is tolerating fluids. Has noticed some frequency and urgency. Has not had severe pain in the back and flank. Does have occasional burning and irritation in the groin region. Has been dealing with incontinence due to swelling of the scrotu m. No severe episodes or major changes. Has not passed a large amount of blood or debris. Review of Systems Review of Systems: All systems reviewed & are unremarkable except as noted in HPI & below Physical Exam Physical Exam: General: Alert in no acute distress. HEENT: Normocephalic Atraumatic. Inspection normal. Cranial Nerves 2-12 Grossly intact. Normal inspection of face. Normal inspection of neck. Psychologic: Normal affect. Respiratory: Nonlabored. No use of accessory muscles. No tachypnea or dyspnea. Cardiovascular: No tachycardia Skin: [place] and Dry. No rashes or visible lesions. Extremities/Lymphatics: Significant scrotal edema. Abdomen: Soft Non-distended. No rebound or guarding. : Likely large hydrocele likely reactive secondary to epididymitis Results & Data Vital Signs (Past 12 Hours) Vital Signs Temp Pulse Resp BP BP Pulse Ox O2 Del Method 06/08/24 07:52 36.4 C L 83 16 165/103 H 97 Room Air 06/07/24 23:21 36.5 C 86 16 136/77 100 Room Air 06/07/24 21:01 36.5 C 86 16 136/77 100 Room Air PG Care Time/CCT Total # of Minutes Spent Total Time Spent with Patient: Total time spent is greater than 50% in coordination of care (as documented) at patient's floor/unit and/or counseling patient: Coding Level of Care Code 99623 SUB INP/OBS CARE 3/50MIN Diagnoses Acute orchitis N45.2 Acute epididymitis N45.1 HFrEF (heart failure with reduced ejection fraction) I50.20 Paroxysmal atrial fibrillation I48.0 Scrotal swelling N50.89 Benign localized hyperplasia of prostate with urinary obstruction N40.1; N13.8 Bladder mass N32.89 Bladder outlet obstruction N32.0 Urge incontinence N39.41
[2024-06-08] MEDS ORDERED: PROMETHAZINE HCL 6.25 MG in SODIUM CHLORIDE 0.9% 50 ML IV PRN (08:31)
[2024-06-08] MEDS ORDERED: ONDANSETRON INJ 2 MG/ML 2 ML VIAL IV PRN (08:31)
[2024-06-08] MEDS ORDERED: fentaNYL citrate PF 100 MCG/2 ML VIAL IV PRN (08:31)
[2024-06-08] MEDS ORDERED: ePHEDrine sulfate 50 MG/ML AMP IV PRN (08:31)
[2024-06-08] MEDS ORDERED: ATROPINE SULFATE 0.1 MG/ML 10ML SYR IV PRN (08:31)
[2024-06-08] MEDS: GENTAMICIN SULFATE 160 MG in DEXTROSE 5% 100 ML IV SCH (08:58)
[2024-06-08] MEDS ORDERED: PHENAZOPYRIDINE HCL 200 MG TAB PO PRN (09:07)
--- NOTE | 2024-06-08 10:24 | Operative Report ---
PG Post Operative Report Pre & Post Diagnosis Operation Date: 06/08/24 09:15 Pre-Op Diagnosis: Prostate Mass, Bladder Outlet Obstruction Post-Op Diagnosis: Prostate Mass, Bladder Outlet Obstruction I identified the patient and participated in the time-out.: Yes Procedure Operation Date: 06/08/24 09:15 Actual Procedures p Transurethral Resection of the Prostate/Bladder Neck Mass(Not Applicable) - Hesham Kapoor DO s REZUM(Not Applicable) - Hesham Kapoor DO Surgeon Hesham Kapoor, II, DO User Experience Analyst None Estimated Blood Loss 1 Findings Consistent with Post-Op Diagnosis Large Prostate with masslike structure at approximately the 10 o'clock position with papillary versus polypoid appearance significant edematous changes around the bladder neck with large varicosities. Severely trabeculated bladder. Previous UroLift clips were noted in the right lateral lobe of the prostate. Specimens Prostate mass/lesion Drains 22Fr Catheter Anesthesia Type General Complications none Disposition Disposition: Recovery Room Indications Patient with obstruction due to prostate enlargement. Risks and benefits discussed at length. Description of Procedure Patient was consented and brought back to the operating room. Patient was placed under anesthesia in the supine position and moved to the dorsal lithotomy position. Patient was prepped and draped in the regular sterile fashion. A time out was completed. A 30degree Cystoscope was placed into the bladder and the entire bladder was examined. The UO's were identified as well as the bladder neck, trigone, dome, and the other important landmarks. The prostatic urethra and large lobes/adenoma was assessed and the veru and bladder neck identified and area/size was assessed. The irregular papillary versus polypoid mass like structure was appreciated on the right lateral lobe with an irregular appearance and significant varicosities and vascularity is around. There was severe edematous changes along the bladder neck. The UroLift clips were noted on the right lateral lobe. There was severe trabeculation and diverticulum throughout the bladder. No major debris. The resection scope was placed and the fine bipolar loop was selected. Starting at the bladder neck to the veru a portion of the right lateral lobe was resected in order to fully remove the mass/lesion. The severely edematous tissue at the bladder neck was resected as well. One of the UroLift clips were further exposed with this resection however did remain in good position The Specimen was removed and sent for analysis. The resection bed and any bleeding areas were fulgurated/cauterized and the entire area inspected. All bleeding was controlled. Considerable residual tissue was noted in the prostatic urethra from the large prostate. At this point with the mass resected it was decided to move forward with the Rezum procedure. The 30 degree scope was then placed into the Rezum device The location and amount of injections were assessed. The entire bladder, urethra, and surround areas were examined. No masses lesions ulcerations or suspicious areas were discovered Treatment of the prostate began on the right side on the lateral lobe. Care was taken to monitor and measure with placement following guidelines. A total of 6 injections on each side with each injection for 9 seconds where completed after engaging the needle into the tissue and confirming good placement.The most proximal injection was approximately 1.5 cm from the bladder neck in the posterior direction. Blanching of tissue was noted. No signs of inadequate penetration or placement of the needle. At the median lobe, a total of 2 injections were completed again each for 9 seconds. Again placement, positioning, and site of injection were all carefully mapped and confirmed to be in good position. No considerable problems or other issues. Treatment and injection was tolerated without considerable pain or problems. After the treatment was complete the area was inspected and the bladder and prostate were assessed. The bladder was inspected a final time. The bladder was emptied and irrigated. All specimen and debris was removed. The scope was removed with the bladder partially full. A catheter was placed and balloon elevated. This was easily irrigated. The patient was cleaned, aroused from anesthesia, and transferred to the pacu in stable condition having tolerated the procedure well with no complications. I was present and participated in all aspects of the procedure. The patient will be monitored in the PACU until transferred. Will plan to monitor the patient while hospitalized with continued IV antibiotics. Will likely need to be discharged with catheter for approximately 10 to 14 days and likely a similar antibiotic course for the severe epididymitis. I attest to the content of the Intraoperative Record and any orders documented therein. Any exceptions are noted below.
--- NOTE | 2024-06-08 12:26 | Anesthesiology Progress Note ---
Date of Service June 08, 2024 Anesthesia Post Procedure Vital Signs Vital Signs: Temp Pulse Pulse Pulse Resp BP BP 06/08/24 12:19 37.0 C 81 16 06/08/24 11:49 77 16 06/08/24 11:17 36.8 C 78 16 06/08/24 10:55 36.8 C 81 21 06/08/24 10:45 77 20 06/08/24 10:35 80 18 06/08/24 10:25 36 C L 74 21 06/08/24 08:27 36.5 C 97 H 20 158/102 H 06/08/24 07:52 36.4 C L 83 16 165/103 H 06/07/24 23:21 36.5 C 86 16 06/07/24 21:01 36.5 C 86 16 06/07/24 19:30 81 18 06/07/24 17:24 90 18 06/07/24 17:06 86 06/07/24 15:28 36.6 C 60 20 129/74 BP Pulse Ox O2 Del Method O2 Flow Rate 06/08/24 12:19 152/80 H 94 Room Air 06/08/24 11:49 149/80 H 94 Room Air 06/08/24 11:17 146/73 H 93 Room Air 06/08/24 10:55 137/81 92 Room Air 06/08/24 10:45 146/80 H 98 Room Air 06/08/24 10:35 141/80 H 100 Oxymask 3 06/08/24 10:25 124/82 98 Oxymask 6 06/08/24 08:27 99 Room Air 06/08/24 07:52 97 Room Air 06/07/24 23:21 136/77 100 Room Air 06/07/24 21:01 136/77 100 Room Air 06/07/24 19:30 156/87 H 99 Room Air 06/07/24 17:24 153/83 H 99 Room Air 06/07/24 17:06 06/07/24 15:28 97 Transfer of Care Handoff Completed per policy Notes Mental Status: alert / awake / arousable Patient Amnestic to Procedure: Yes Nausea / Vomiting: adequately controlled Pain: adequately controlled Airway Patency, RR, SpO2: stable & adequate BP & HR: stable & adequate Hydration State: stable & adequate Anesthetic Complications: no major complications apparent
[2024-06-08] MEDS: PIPERACILLIN/TAZOBACTAM 4.5 GM/100 ML BAG IV ONE (12:39)
[2024-06-08] MEDS: PIPERACILLIN/TAZOBACTAM 4.5 GM/100 ML BAG IV SCH (18:04)
[2024-06-08] MEDS: DOCUSATE SODIUM 100 MG CAP PO PRN (21:45)
--- NOTE | 2024-06-09 06:01 | Electrocardiogram Report ---
Test Reason : Blood Pressure : */* mmHG Vent. Rate : 84 BPM Atrial Rate : * BPM P-R Int : * ms QRS Dur : 128 ms QT Int : 396 ms P-R-T Axes : * 48 73 degrees QTcB Int : 467 ms Poor data quality, interpretation may be adversely affected Atrial fibrillation Non-specific intra-ventricular conduction block Nonspecific T wave abnormality Abnormal ECG When compared with ECG of 05-Jun-2024 11:32, No significant change Confirmed by Osman Berry ([id number] on 06/09/2024 6:00:37 AM Referred By: REFERRED SELF Confirmed By: Osman Berry
[2024-06-09 08:29] LABS: Basophils # (auto) 0.02 K/uL (0.00-0.20); Basophils % (auto) 0.2 %; Eosinophils # (auto) 0.02 K/uL (0.00-0.50); Eosinophils % (auto) 0.2 %; Hematocrit (blood only) 36.1 % (42.0-52.0); Hemoglobin 11.5 g/dl (14.0-18.0); Immature Granulocytes # (auto) 0.08 K/uL (0.01-0.20); Immature Granulocytes % (auto) 0.7 %; Lymphocytes # (auto) 0.63 K/uL (1.20-3.40); Lymphocytes % (auto) 5.6 %; Mean Corpuscular Hemoglobin 28.3 pg (25.0-34.0); Mean Corpuscular Hgb Conc 31.9 g/dL (32.0-36.0); Mean Corpuscular Volume 88.7 fL (80.0-100.0); Mean Platelet Volume 9.1 fL (9.4-12.4); Monocytes # (auto) 1.16 K/uL (0.11-0.59); Monocytes % (auto) 10.4 %; Neutrophils # (auto) 9.29 K/uL (1.40-6.50); Neutrophils % (auto) 82.9 %; Platelet Count 289 K/uL (130-400); RDW Coefficient of Variation 14.5 % (11.5-14.5); RDW Standard Deviation 46.5 fL (36.4-46.3); Red Blood Count 4.07 M/uL (4.70-6.10)
[2024-06-09 08:36] LABS: BUN Creatinine Ratio 20.4 (10-20); Calcium 9.4 mg/dl (8.6-10.3); Creatinine Clr Calc Pharmacy 50.6 ml/min; Potassium 4.2 mmol/L (3.5-5.1)
--- NOTE | 2024-06-09 09:12 | Urology Progress Note ---
Date of Service June 09, 2024 Assessment & Plan (1) Bladder outlet obstruction: (2) Acute UTI: (3) Acute epididymitis: (4) Acute orchitis: Plan: POD #1 s/p Transurethral Resection of the Prostate/Bladder Neck Mass, REZUM; follow-up of right epididymoorchitis Patient afebrile with stable vitals Labs todaycreatinine 1.37, WBC 11.2, hemoglobin 11.5 Urine culture 1/2 with pansensitive E. coli Blood cultures / with no growth to date Continue with IV antibiotics, can transition to oral antibiotics upon discharge Recommend extended course of antibiotics for complicated UTI/epididymoorchitis Discussed that scrotal swelling may persist for several weeks Maintain Doe catheter upon discharge Continue with supportive care and medical management per hospital medicine Expected clinical course reviewed, all questions answered Will arrange outpatient follow-up with our service for catheter removal/post op Admission and Anticipated Discharge Date Admission Date: June 07, 2024 Subjective Patient seen and examined at bedside this morning. He is awake and sitting up in bedside chair. No acute issues overnight. Denies fever or chills. Continues to have scrotal swelling, improving. Denies scrotal discomfort. Review of Systems Constitutional: as per Subjective / HPI Genitourinary: + as per Subjective / HPI Physical Exam Constitutional: no acute distress Respiratory: normal respiratory effort; no respiratory distress and no labored breathing Gastrointestinal (Abdomen): Inspection/Auscultation: abdomen normal to inspection Musculoskeletal: Head/Neck/Chest: normocephalic Neurologic: moves all extremities and awake Psychiatric: Orientation: alert and oriented x 3 Genitourinary: Doe intact and draining yellow urine Moderate right scrotal edema and erythema, some firmness over epididymitis, mildly tender to palpation Results & Data Vital Signs (Past 12 Hours) Vital Signs Temp Pulse Resp BP Pulse Ox O2 Del Method 06/09/24 03:58 36.5 C 85 16 130/82 96 Room Air 06/09/24 00:55 36.6 C 84 16 163/89 H 97 Room Air PG Care Time/CCT Total # of Minutes Spent Total Time Spent with Patient: Total time spent is greater than 50% in coordination of care (as documented) at patient's floor/unit and/or counseling patient: Coding Level of Care Code 49288 SUB INP/OBS CARE 06/27MIN Diagnoses Bladder outlet obstruction N32.0 Acute UTI N39.0 Acute epididymitis N45.1 Acute orchitis N45.2
--- NOTE | 2024-06-09 09:50 | Hospitalist Progress Note ---
Date of Service June 09, 2024 Assessment & Plan (1) Acute epididymitis: (2) Acute UTI: (3) Acute orchitis: Plan Mr. Mcpherson is an 83-year-old male with a past medical history of of A-fib, HFrEF, sick sinus syndrome, hypertension. Patient presents today after failing outpatient treatment of oral antibiotics with Keflex and doxycycline for epididymoorchitis and UTI. #Epididymoorchitis/UTI Not septic at this time, VSS, afebrile, no leukocytosis Urology on board Continue Zosyn D2( D4 of Abx) Blood CS: No growth #BPH with LUTS S/P TURP: D1. Post op uneventful. Urology on board. Eliquis to be started per Uro. #Paroxysmal a fib Rate controlled. Continue flecainide, Eliquis to be started per Uro. #CHF: Stable, Lasix restarted today. #Chronic stable diagnoses: HTN - continue losartan VTE ppx: TEDs, will resume Elliquis after procedure. Diet: heart healthy, low NA Dispo: DC to home once ?tomorrow. Admission and Anticipated Discharge Date Admission Date: June 07, 2024 Supervising Physician Co-Signing Physician Notes Attending Physician Supervision Note: I independently interviewed and examined the patient and verified the [place] history and physical, reviewed labs and image studies and agree with findings and care plan noted above. Underwent TURP/bladder outlet mass resection Denied any concerns. vitals noted nad sitting in bed comfortable, RRR, CTA, Abdomen soft. 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 Epididymoorchitis - pansensitive EColi - zosyn. Blood cx neg. -Transition to oral abx on discharge - extended course. -Scrotal swelling may persist for several weeks. -urology to follow on continued need of Dutasteride. -continue hill on discharge. HFmrEF/PAF - Resume lasix. spironolactone on hold. Apixaban - to be resumed once cleared by surgery. continue flecainide Continue Losartan Resume Coreg Prediabetes - farxiga on hold Mild cognitive deficit - supportive care. otherwise as above Subjective This AM Mr. Salomon is doing fine. His post operative period seems stable. No concerns except his curiosity for Eliquis and Lasix. He is under hill's and passing clear urine. Review of Systems Review of Systems: As per HPI Physical Exam Physical Exam: Constitutional: Well appearing, No acute distress HEENT: Atraumatic, Normocephalic, No conjunctival injection CVS: S1 S2 no murmur, Regular Rhythm, no LE edema Respiratory: BL equal air entry with NVBS. No rhonchi, wheezes, or crackles. No increased work of breathing GI: Soft, Nondistended, Nontender, Normal Bowel sounds + Psych: Mood and Affect congruent, Cooperative on exam Results & Data Results & Data Vital Signs (Past 12 Hours) Vital Signs Temp Pulse Resp BP Pulse Ox O2 Del Method 06/09/24 03:58 36.5 C 85 16 130/82 96 Room Air 06/09/24 00:55 36.6 C 84 16 163/89 H 97 Room Air Resident Activity Tracking Resident Involvement: Resident Care Provided Care Provided: Adult Hospital Medicine
[2024-06-09] MEDS: FUROSEMIDE 40 MG TAB PO SCH (10:39)
[2024-06-09] MEDS: POLYETHYLENE (MIRALAX) 17 GM PACK PO PRN (11:02)
[2024-06-09] MEDS: carvediloL 3.125 MG TAB PO SCH (18:03)
--- NOTE | 2024-06-10 07:33 | Hospitalist Progress Note ---
Date of Service June 10, 2024 Assessment & Plan (1) Acute epididymitis: (2) Acute UTI: (3) Acute orchitis: Plan Mr. Mcpherson is an 83-year-old male with a past medical history of of A-fib, HFrEF, sick sinus syndrome, hypertension. Patient presents today after failing outpatient treatment of oral antibiotics with Keflex and doxycycline for epididymoorchitis and UTI. #Epididymoorchitis/UTI Not septic at this time, VSS, afebrile, no leukocytosis Urology on board Continue Zosyn D2( D4 of Abx) Blood CS: No growth #BPH with LUTS S/P TURP: D1. Post op uneventful. Urology on board. Eliquis to be started per Uro. #Paroxysmal a fib Rate controlled. Continue flecainide, Eliquis to be started per Uro. #CHF: Stable, Lasix restarted today. #Chronic stable diagnoses: HTN - continue losartan VTE ppx: TEDs, will resume Elliquis after procedure. Diet: heart healthy, low NA Dispo: DC to home once ?tomorrow. Admission and Anticipated Discharge Date Admission Date: June 07, 2024 Subjective This AM Mr. Salomon is doing fine. His post operative period seems stable. No concerns except his curiosity for Eliquis and Lasix. He is under hill's and passing clear urine. Review of Systems Review of Systems: As per HPI Physical Exam Physical Exam: Constitutional: Well appearing, No acute distress HEENT: Atraumatic, Normocephalic, No conjunctival injection CVS: S1 S2 no murmur, Regular Rhythm, no LE edema Respiratory: BL equal air entry with NVBS. No rhonchi, wheezes, or crackles. No increased work of breathing GI: Soft, Nondistended, Nontender, Normal Bowel sounds + Psych: Mood and Affect congruent, Cooperative on exam Results & Data Results & Data Vital Signs (Past 12 Hours) Vital Signs Temp Pulse Resp BP Pulse Ox O2 Del Method 06/09/24 20:30 Room Air 06/09/24 20:11 36.7 C 85 18 123/76 99 Room Air
[2024-06-10] MEDS: SPIRONOLACTONE 25 MG TAB PO SCH (10:21)
[2024-06-10] MEDS: bisacodyL 10 MG SUPP PR STA (11:49)
[2024-06-10] MEDS: bisacodyL 10 MG SUPP PR ONE (11:49)
[2024-06-10 12:05] VITALS: BP 142/84; PULSE 81; RESP 16; TEMP 98.2; O2SAT 99
--- NOTE | 2024-06-10 12:29 | Urology Progress Note ---
Date of Service June 10, 2024 Assessment & Plan (1) Bladder outlet obstruction: (2) Acute UTI: (3) Acute epididymitis: (4) Acute orchitis: Plan: POD #2 s/p Transurethral Resection of the Prostate/Bladder Neck Mass, REZUM; follow-up of right epididymoorchitis Patient afebrile with stable vitals Urine culture grew pansensitive E. coli Blood cultures prelim no growth x 48 hours Continue with IV antibiotics, can transition to oral antibiotics upon discharge Recommend extended course of antibiotics for complicated UTI/epididymoorchitis per final culture sensitivities Discussed that scrotal swelling may persist for several weeks. Reviewed supportive care with scrotal elevation and ice as needed OK to resume anticoagulation from standpoint Maintain Doe catheter upon discharge Will arrange outpatient follow-up with our service for catheter removal/post op will sign-off. Please call with any questions/concerns. Admission and Anticipated Discharge Date Admission Date: June 07, 2024 Subjective Patient seen and examined at bedside this morning. He is awake and sitting up in bedside chair. No acute issues overnight. Denies fever or chills. Continues to have scrotal swelling, but reports overall improvement. Denies scrotal discomfort. Doe draining clear yellow. Review of Systems Constitutional: as per Subjective / HPI Genitourinary: + as per Subjective / HPI Physical Exam Constitutional: no acute distress Respiratory: normal respiratory effort; no respiratory distress and no labored breathing Neurologic: moves all extremities and awake Psychiatric: Orientation: alert and oriented x 3 Genitourinary: Doe intact and draining yellow urine R>L scrotal edema. Mild erythema. Mildly tender to palpation. No fluctuance or crepitus. No open areas or drainage. Results & Data Vital Signs (Past 12 Hours) Vital Signs Temp Pulse Resp BP Pulse Ox O2 Del Method 06/10/24 12:03 36.8 C 81 16 142/84 H 99 Room Air 06/10/24 07:49 36.3 C L 82 14 164/100 H 93 Room Air PG Care Time/CCT Total # of Minutes Spent Total Time Spent with Patient: Total time spent is greater than 50% in coordination of care (as documented) at patient's floor/unit and/or counseling patient: Coding Level of Care Code 16727 SUB INP/OBS CARE 2/35MIN Diagnoses Bladder outlet obstruction N32.0 Acute UTI N39.0 Acute epididymitis N45.1 Acute orchitis N45.2
[2024-06-10] MEDS: APIXABAN 5 MG TABLET PO SCH (13:53)
--- NOTE | 2024-06-10 17:47 | Discharge Summary ---
Date of Service June 10, 2024 Admission HPI Per Admitting Provider Patient is an 83-year-old male with a past medical history of of A-fib, HFrEF, sick sinus syndrome, hypertension. Patient presents today after failing outpatient treatment of oral antibiotics with Keflex and doxycycline for epididymoorchitis. Patient had a cystoscopy on the that showed a polyp, 1 day later he began with foul-smelling urine and testicular swelling. He was found to have UTI with pansensitive E. coli on 06/04. He stated the testicular swelling began around the second and has been increasing since. He had an outpatient ultrasound 06/05 that showed right sided epididymitis orchitis, small/moderate size complex right hydrocele, marked scrotal edema. He was treated for both this and UTI with Keflex and doxycycline that he started taking Saturday evening; he did take both this morning. He stated the antibiotics do not seem to be helping with the swelling, he no longer can use the bathroom due to the swelling and has been using depends. ER provider noted that he did a bladder scan and the patient is not retaining. The patient stated he was to have a procedure with urology tomorrow to biopsy the nodule. He endorses discomfort but denies pain. He stated ever since taking the antib iotics he has had dizziness and dyspnea on exertion. He is also felt weak. He denies fever, chills, chest pain, abdominal pain, nausea, vomiting, diarrhea. He has Lasix 40 Mg along with potassium supplements that he takes as needed; he states he sometimes takes these every day, sometimes every other day. He last took these on the and quit taking them due to the swelling he was experiencing. He denies worsening lower extremity edema. He has been holding his Eliquis since in preparation of his urology procedure tomorrow. He took all of his other home medications today. He denies nicotine use, uses alcohol socially. Denies past history of diabetes or previous VTE. Does not use oxygen or CPAP/BiPAP at baseline. Wishes to be full code at this time. He stated he does not take spironolactone or carvedilol. Admission Exam Per Admitting Provider The patient is awake, alert and oriented 3, well developed and well nourished, normocephalic and atraumatic, in no acute distress. Non-toxic appearing. HEENT- EOMI, mucous membranes moist. Hearing grossly intact. Heart-normal S1 and S2. No murmurs, rubs or gallops. Lungs-clear bilaterally, no respiratory distress, no accessory muscle use. Abdomen-normal bowel sounds and soft. No ascites noted. Non-tender. Extremities- no clubbing, cyanosis. +1 pitting edema BL LE. Rheumatologic-normal range of motion. Psychiatric-normal affect. Genitourinary: exam with nursing present. Bilateral scrotal erythema, swelling, hardness. Tender to palpation. R>L. Principal Diagnosis Epididymorchitis S/P TURP for BPH Discharge Exam Constitutional: Well appearing, No acute distress HEENT: Atraumatic, Normocephalic, No conjunctival injection CVS: S1 S2 no murmur, Regular Rhythm, no LE edema Respiratory: BL equal air entry with NVBS. No rhonchi, wheezes, or crackles. No increased work of breathing GI: Soft, Nondistended, Nontender, Normal Bowel sounds + Psych: Mood and Affect congruent, Cooperative on exam Discharge Data Allergies Allergy/AdvReac Type Severity Reaction Status Date / Time morphine Allergy Severe Reddened Verified 06/12/24 09:15 face/Hot flashes/Tongue swelling chlorhexidine AdvReac Intermediate Rash Verified 06/12/24 09:15 lisinopril AdvReac Intermediate cough Verified 06/12/24 09:15 nebivolol [From Bystolic] AdvReac Unknown Unknown Verified 06/12/24 09:15 tamsulosin AdvReac Unknown Unknown Verified 06/12/24 09:15 Consultations 06/07/24 17:37 ED Decision to Admit Stat 06/07/24 20:56 Consult Urology Routine Procedures Performed Operation Date: 06/08/24 09:15 Actual Procedures p Transurethral Resection of the Prostate/Bladder Neck Mass(Not Applicable) - Hesham Kapoor DO s REZUM(Not Applicable) - Hesham Kapoor DO Hospital Course (1) Acute epididymitis: (2) Acute orchitis: (3) Benign localized hyperplasia of prostate with urinary obstruction: Plan Mr. Mcpherson is an 83-year-old male with a past medical history of of A-fib, HFrEF, sick sinus syndrome, hypertension. Patient was admitted after failing outpatient treatment of oral antibiotics with Keflex and doxycycline for epididymoorchitis and UTI. #Epididymoorchitis/UTI Blood CS: No growth Zosyn IV during admission---Augmentin X 10 days on DC. #BPH with LUTS S/P TURP: D1. Hill's insitu, F?U Urology as per instruction. #Chronic stable diagnoses: HTN/Afib/CHF: No significant change during hospital course. All home Meds including Eliquis restarted Refuses Farsixa d/t risk of UTI ; F/U with cardiology for alternative option. Total Time Total Time Spent Total Time Spent (In Minutes): See attending's attestation Discharge Plan Discharge Items Patient Disposition: Home - Home Health Services Reason For Visit: EPIDIDYMOORCHITIS Discharge Diagnosis: Epididymoorchitis, S/P TURP Condition on Discharge: Fair Activity: Resume your previous activity Non-emergency contact: Primary Care Provider and Urologist Call non-emergency contact if: your temperature is above 101, your wound has increased drainage and your wound pain has increased Follow-up/Referrals: Srinath Christianson DO [Primary Care Provider] - [facility],Nurse [FAKE FOR SCHEDULES] - 06/19/24 10:00 am Diet: Regular Addtl Attending Provider Instructions: You were admitted to the hospital for Infection of scrotum and urine. You were treated with intravenous antibiotics. We will continue that to oral on discharge. A discharge summary will be sent to your primary care physician to ensure continuity of care. Please bring this discharge summary with you to your next office appointment so that your provider can review it at that time. Your medication list has been reviewed and reconciled upon discharge to ensure accuracy and continuity of care. An updated list of all your medications is included with your hospital discharge paperwork. Please review this list closely and make note of any changes to your medications. Farxiga has been held for having high risk of UTI. Would recommend follow up with your case management specialist for alternate plan. You should continue the antibiotic augmentin twice per day for a total of 10 days. Follow up appointments: - Make a follow up appointment with your PCP within the next week. It is very important that you follow up with them shortly after discharge from the hospital. - Keep all of your follow up appointments as already scheduled. If you cannot make an appointment, notify your provider. CONTACT YOUR PRIMARY CARE PROVIDER if you experience any of the following: - Difficulty following your treatment plan - Difficulty taking any of your medications -High grade fever with chills. CALL 911 OR GO TO THE EMERGENCY DEPARTMENT if you experience any of the following: - Sudden, severe abdominal pain or nausea/vomiting - Severe chest pain or chest pain that radiates to your jaw or arm - Sudden, severe shortness of breath or difficulty breathing Addtl Dock Operator Provider Instructions: Please take all medications as prescribed and keep all follow-ups as scheduled. Please call the urology office at [phone] with any questions, concerns or need to reschedule appointments for any reason. We are happy to assist you. Tips for your recovery at home: Dont be alarmed by brownish or reddish blood or clots in your urine. This is a result of the procedure. This may occur off and on for weeks to months after the procedure but should continue to improve. Drink plenty of fluids during the day (enough to keep your urine very light colored). This will help keep a healthy flow of urine. Do not lift >25 lbs until your followup Avoid constipation. Please use a stool softener (Colace) for the first two weeks after your procedure Be sure to finish the antibiotics as prescribed. If you go home with a catheter, please wash tubing where it enters your body twice daily with mild soap (Dove or Dial). Once your catheter is removed, expect some blood in your urine and some burning when you urinate. You should have an appointment to have this removed, if you do not please call our office to arrange. Pending Studies at Discharge: No Stand-Alone Forms: My [facility], Smoking Cessation Medications and DC Order Prescriptions: New amoxicillin-pot clavulanate 875-125 mg tablet 1 tab PO BID 10 Days Qty: 20 0RF Continued Eliquis 5 mg tablet 5 mg PO BID Qty: 180 3RF Rx Instructions: 06/07/24 : this med currently on hold for possible surgery. losartan 100 mg tablet 100 mg PO QAM Qty: 90 3RF flecainide 150 mg tablet 150 mg PO BID Qty: 180 3RF Rx Instructions: TAKE 1 TABLET BY MOUTH EVERY 12 HOURS potassium chloride 20 mEq tablet,ER particles/crystals 20 meq PO DAILY Qty: 90 3RF multivitamin [Multiple Vitamins] tablet 1 tab PO QAM zinc gluconate 50 mg tablet 25 mg PO QAM carvedilol 3.125 mg tablet 3.125 mg PO BID Qty: 60 2RF Rx Instructions: must administer with a meal/food dutasteride 0.5 mg capsule 0.5 mg PO DAILY Qty: 90 3RF solifenacin [Vesicare] 5 mg tablet 5 mg PO DAILY Qty: 90 3RF ascorbic acid (vitamin C) [Vitamin C] 500 mg Tablet 500 mg PO QAM cholecalciferol (vitamin D3) [Vitamin D3] 25 mcg (1,000 unit) tablet 1,000 unit PO QAM sennosides [Senokot] 8.6 mg tablet 8.6 mg PO BID PRN (Reason: constipation) Qty: 30 0RF cyanocobalamin (vitamin B-12) [Vitamin B-12] 500 mcg Tablet 500 mcg PO QAM Patient Comments: YOU CAN CHEW IT BUT I JUST SWALLOW IT polyethylene glycol 3350 [Miralax] 17 gram Powder In Packet 17 g PO QAM Patient Comments: MOSTLY EVERY MORNING PreserVision AREDS-2 250-90-40-1 mg Capsule 1 tab PO BID terbinafine HCl 250 mg tablet 250 mg PO QAM bisacodyl [Dulcolax (bisacodyl)] 5 mg Tablet,Delayed Release (Dr/Ec) 5 mg PO DAILY PRN (Reason: Constipation) furosemide 40 mg tablet 40 mg PO DAILY Rx Instructions: Take with potassium supplement (20 meq) spironolactone 25 mg tablet 25 mg PO QAM Discontinued doxycycline hyclate 100 mg tablet 100 mg PO BID 7 Days Qty: 14 0RF cephalexin 500 mg capsule 500 mg PO BID 7 Days Qty: 14 0RF Rx Instructions: begin 06/05/24 x 7 days dapagliflozin propanediol [Farxiga] 10 mg tablet 10 mg PO QAM Discharge Orders: Discharge Order (Routine); Ordered 06/10/24 Ordered By: Hayley Vargas/Other Patient Handouts: Epididymitis Dc, AFib, ED Orchitis Admission Data Admit Date/Time: 06/07/24 18:22 Attending Provider: Vivian Hall Admit Provider: Alek Leblanc Primary Care Provider: Srinath Christianson Other Providers: Garcia Elena; [facility]; [facility] Other Interventions: Discharge Summary Assessment (RN) Last Done: 06/10/24 16:26 Supervising Physician Co-Signing Physician Notes Attending Physician Supervision Note: I independently interviewed and examined the patient and verified the francisco history and physical, reviewed labs and image studies and agree with findings and care plan noted above. Denied any concerns. vitals noted nad no resp distress. 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 Epididymoorchitis - pansensitive EColi. Blood cx neg. -Treated with zosyn. Transition to oral abx on discharge - extended course. -Scrotal swelling may persist for several weeks. -continue hill on discharge. Resumed anticoagulation on discharge and continued home meds. otherwise as above Resident Activity Tracking Resident Involvement: Resident Care Provided Care Provided: Adult Hospital Medicine
[2024-06-11] MEDS ORDERED: bisacodyL 5 MG TABEC PO PRN (08:41)
--- NOTE | 2024-06-11 16:08 | Coding Query ---
CODING QUERY To promote full compliance with coding requirements relating to patient care, provider participation is requested in all cases of death surveys coder uncertainty. Please assist us with the question(s) below: Coding Question(s): Pt admitted with epididymoorchitis, had Cystoscopy with biopsy on 06/02 (prior to admission) . Developed UTI(E.Coli), epididymoorchitis 1 day after procedure. During this current admission performed a TURP/Rezum procedure. Seeking to determine if the patient's admitting symptoms of epididymoorchiits & UTI were postprocedure complications of the 06/02 Cystoscopy. Please check below & thanks for your help! Bryson Pierre [facility] Physician's Response(s): ____x___ The UTI & acute Epididymoorchitis were not complications from the 06/02 cystoscopy The UTI & acute Epididymoorchitis were complications from the 06/02 cystoscopy Principal Diagnosis: "that condition established after study, to be chiefly responsible for occasioning the admission of the patient to the hospital for care." Co-Existing Principal Diagnosis: "when two or more diagnoses equally meet the criteria for principal diagnosis as determined by the circumstances of admission, diagnostic work up, and/or therapy provided, and the Alphabetic Index, Tabular List, or another coding guideline does not provide sequencing direction, any one of the diagnoses may be sequenced first." "When the physician has documented what appears to be a current diagnosis in the body of the record, but has not included the diagnosis in the final diagnostic statement, the physician should be asked whether the diagnosis should be added." (Source Coding [facility] 2 QTR90. p3-4) [place]
== END 2024-06-10 17:21 | disposition home health service (06) | DRG 713 ==
LOC: SUATTDRO → ED 15:23 → SUATTDRO 18:22 → 3W 18:22
PROC: M.REZUM (2024-06-08 09:15)
DX: N50.89 Other specified disorders of the male genital organs; I48.0 Paroxysmal atrial fibrillation; N45.1 Epididymitis; N45.3 Epididymo-orchitis; N13.8 Other obstructive and reflux uropathy; N39.0 Urinary tract infection, site not specified; N40.1 Benign prostatic hyperplasia with lower urinary tract symptoms; D64.9 Anemia, unspecified; N32.89 Other specified disorders of bladder; I49.5 Sick sinus syndrome; Z87.891 Personal history of nicotine dependence; N32.0 Bladder-neck obstruction; R94.31 Abnormal electrocardiogram [ECG] [EKG]; R73.03 Prediabetes; I11.0 Hypertensive heart disease with heart failure; R97.20 Elevated prostate specific antigen [PSA]; N42.89 Other specified disorders of prostate; N43.3 Hydrocele, unspecified; I50.22 Chronic systolic (congestive) heart failure; B35.3 Tinea pedis; B96.20 Unspecified Escherichia coli [E. coli] as the cause of diseases classified elsewhere; N39.41 Urge incontinence; Z88.5 Allergy status to narcotic agent

== ENCOUNTER 2024-10-16 11:22 | Inpatient (IN) ==
--- NOTE | 2024-10-16 11:54 | XRay Report ---
XR chest 1V portable CLINICAL HISTORY: Chest pain, nonspecific COMPARISON STUDY: 07/22/2024 FINDINGS: Stable cardiomegaly with mild pulmonary vascular congestion. There is interval mild bluntin g of the right costophrenic angle. No other consolidation or pleural effusion. No pneumothorax. IMPRESSION: 1. Mild CHF. 2. Possible trace right pleural effusion. ACT 112: Negative or not required by law. Electronically signed by: Getachew Alfredo M.D. 10/16/2024 11:53 AM
--- NOTE | 2024-10-16 12:13 | Emergency Department Note ---
Impression & Plan Acute exacerbation of CHF (congestive heart failure), Dizziness ED Provider Note HISTORY OF PRESENT ILLNESS: Patient is an 83-year-old male presenting with shortness of breath and weakness. Patient reports he has a history of A-fib. States that he had a normal blood pressure and normal heart rate of the 60s earlier today and felt well enough to go to physical therapy. He states that he went to physical therapy and became very winded and felt very weak and had to start holding onto the wall while there. He states that they took his pulse and he was hypertensive with a blood pressure of 160s over 100 and his heart rate was 38. He states that he has been noticing he has low heart rate when he becomes very lightheaded and feeling unsteady on his feet. He reports that he stopped his Lasix 3 days ago and has noted that he has had lower extremity edema. He denies any DVT or PE history. He denies any chest pain. He states that he just feels so short of breath that he cannot walk like he normally does. He does report that at PT he became very lightheaded with his heart rate in the 30s. 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 ROS: as above PHYSICAL EXAM: Constitutional: Patient appears in no acute distress. HENT: Head: Normocephalic and atraumatic. Eyes: EOMI, PERRL Mouth/Throat: Mucous membranes moist. Neck: Trachea midline. Neck supple. Cardiovascular: RRR, No murmurs, rubs or gallops. Intact distal pulses. Pulmonary/Chest: No respiratory distress. Breath sounds clear and equal bilaterally. No wheezes or rales. Abdominal: Abdomen soft, no tenderness, rebound or guarding. Musculoskeletal: No tenderness or deformity noted. +1 pitting edema of bilateral lower extremities extending to proximal tibias. Skin: Warm and dry. No rash, erythema, pallor or cyanosis Psychiatric: Appropriate mood and affect for situation. Neurological: Alert and keenly responsive. CN II-XII grossly intact, moving all extremities equally and fully. MDM: - Vitals signs showed hypertension and bradycardia - History obtained via patient. History as above. - Chronic conditions affecting care: sick sinus syndrome; HFrEF; cardiomyopathy; HTN - Differential diagnoses include, but are not limited to: Congestive heart failure; acute coronary syndrome; COPD/asthma exacerbation; pulmonary edema; pulmonary embolism; pneumonia; pneumothorax; viral syndrome - Order placed for continuous cardiac monitoring. At this time, monitor showed rate of 59 bpm with normal sinus rhythm, per my interpretation. - External medical records reviewed. Cardiology visit note dated was reviewed. Patient has a history of paroxysmal A-fib. He had restarted flecainide on his own and was feeling better. Plan was to continue flecainide. - EKG image interpreted by myself showed normal sinus rhythm. Rate 60 bpm. QT 416. No acute ischemic changes. - Laboratory workup interpreted by myself showed slight leukopenia (WBC 4.18); elevated INR (1.3); stable electrolytes; normal troponin; elevated BNP (682) - CXR image reviewed by myself showed some pulmonary vascular congestion, for my interpretation. Radiology notes mild CHF and possible trace right pleural effusion. - Ambulatory trial resulted in the patient becoming short of breath with ambulation. He also was feeling very lightheaded and had to use the fall to support himself towards the end of his ambulation. - Patient given 40 mg IV lasix in ER. - Discussion was had with porter sample case about patient's case and need for admission - Hospitalist consulted for admission - [facility] ASSESSMENT AND PLAN: Diagnosis: Acute CHF exacerbation; dizziness Plan: Admit Past Med/Surg History Problem List (Updated 10/16/24 @ 14:57 by Zelda Zhang MD) Dizziness (Acute) Acute exacerbation of CHF (congestive heart failure) (Acute) SSS (sick sinus syndrome) follows with [facility]ology- maría Nonischemic cardiomyopathy First degree atrioventricular block by electrocardiogram Bladder outlet obstruction Bladder mass HFrEF (heart failure with reduced ejection fraction) Paroxysmal atrial fibrillation (2013) no cardioversion Elevated PSA (Chronic) Anemia Cardiomyopathy Osteoarthritis of left hip Lumbar disc disease with radiculopathy Lumbar degenerative disc disease Impaired mobility Pre-diabetes Vitamin B12 deficiency Mild cognitive disorder BMI 35.0-35.9,adult (Acute) 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) Urge incontinence (Acute) Anticoagulant long-term use Medical History UTI (urinary tract infection) Urge incontinence Cardiomyopathy Benign localized hyperplasia of prostate with urinary obstruction Anemia Testicular swelling Edema of both legs Hypertension Neck problem Macular degeneration Impaired mobility History of vitamin D deficiency Mild cognitive disorder Pre-diabetes Lumbar degenerative disc disease Overactive bladder Enlarged prostate Arthritis HTN (hypertension) History of kidney stones (~2003) Rosacea SSS (sick sinus syndrome) Surgical History S/P epidural steroid injection (12/2023) Status post total hip replacement, bilateral (2023) Hx of bilateral cataract extraction History of colonoscopy with polypectomy H/O shoulder surgery (2004) Family History Son Esophageal reflux Brother Brain tumor Prostate cancer Unknown Nephrolithiasis Denies family history of Ovarian cancer Diabetes Myocardial infarction Breast cancer Lung cancer Colorectal cancer Hypertension Social History Smoking Status: Never smoker Tobacco Type: Cigarettes Age Started Using Tobacco: 16; Age Quit Using Tobacco: 21; packs per day: 0.25; Second Hand Exposure: No; Do You Dip or Chew Tobacco: No; Hx Alcohol Use: No Hx Substance Use: No Preferred Language: Somali Communication Ability: Effective Visual Impairment: No Limitations Hearing Ability: Use of Hearing Aid Restaurant Assistant Required: No Beliefs That Will Affect Care: None marital status: Current Living Situation: Spouse Current Living Situation Comment: with , kids are near by to help if needed current occupational status: employed How many Children do You have: 2 Feels Safe at Home: Yes Childhood Exposure to Second-Hand Smoke: No caffeine: Yes Dental Care, Regularly: Yes Physical Activity Frequency: Does not Exercise Seatbelt Use: always Sunscreen Use: Yes Assistive Devices: Stair Lift and Walker Allergies Allergies Allergy/AdvReac Type Severity Reaction Status Date / Time morphine Allergy Severe Reddened Verified 10/01/24 16:01 face/Hot flashes/Tongue swelling chlorhexidine AdvReac Intermediate Rash Verified 10/01/24 16:01 lisinopril AdvReac Intermediate cough Verified 10/01/24 16:01 nebivolol [From Bystolic] AdvReac Unknown Unknown Verified 10/01/24 16:01 tamsulosin AdvReac Unknown Unknown Verified 10/01/24 16:01 Home Meds Home Medications Medication Instructions Recorded Confirmed multivitamin (Multiple Vitamins 1 tab PO QAM 03/05/19 10/16/24 tablet) ascorbic acid (vitamin C) 500 mg 500 mg PO QAM 11/29/20 10/16/24 tablet (Vitamin C) cyanocobalamin (vitamin B-12) 500 500 mcg PO QAM 08/15/21 10/16/24 mcg tablet (Vitamin B-12) polyethylene glycol 3350 17 gram 17 g PO QAM 08/15/21 10/16/24 oral powder packet (Miralax) cholecalciferol (vitamin D3) 25 1,000 unit PO QAM 11/09/21 10/16/24 mcg (1,000 unit) tablet (Vitamin D3) zinc gluconate 50 mg tablet 25 mg PO QAM 11/16/22 10/16/24 vit C 250 mg-vit E 90 mg-zinc 40 1 tab PO BID 01/14/24 10/16/24 mg-copper 1 [id number] capsule (PreserVision AREDS-2) bisacodyl 5 mg tablet,delayed 5 mg PO DAILY PRN Constipation 06/05/24 10/16/24 release (Dulcolax (bisacodyl)) furosemide 40 mg tablet 40 mg PO DAILY PRN edema 06/05/24 10/16/24 apixaban 5 mg tablet (Eliquis) 0 mg PO BID 10/16/24 10/16/24 potassium chloride 20 mEq 20 meq PO DAILY PRN Take w/ Lasix 10/16/24 10/16/24 tablet,extended release(part/cryst) tavaborole 5 % topical solution 1 applic topical DAILY 10/16/24 10/16/24 with applicator Previous Rx's Medication Instructions Recorded dutasteride 0.5 mg capsule 0.5 mg PO DAILY #90 caps 05/28/24 solifenacin 5 mg tablet (Vesicare) 5 mg PO DAILY #90 tabs 06/24/24 flecainide 150 mg tablet 150 mg PO Q12H #180 tabs 08/14/24 losartan 100 mg tablet 100 mg PO QAM #90 tabs 08/14/24 Results & Data (ED) Vital Signs Vital Signs - 24 hr 10/16/24 11:27 10/16/24 11:33 10/16/24 12:56 Temperature 36.5 C Temperature Source Skin Pulse Rate - Lying Pulse Rate - Sitting Pulse Rate - Standing Pulse Rate 58 L 59 L Pulse Rate [Right Brachial] Pulse Rhythm [Right Brachial] Pulse Strength [Right Brachial] Respiratory Rate 18 Respiratory Rate [Exercises] Respiratory Effort / Characteristics Respiratory Depth Respiratory Pattern Blood Pressure - Lying Blood Pressure - Sitting Blood Pressure- Standing Blood Pressure 177/89 H Blood Pressure [Right Arm] Blood Pressure Mean 118 Blood Pressure Mean [Right Arm] Blood Pressure Position [Right Arm] Pulse Oximetry 98 96 Pulse Oximetry [Exercises] Oxygen Delivery Method Room Air Room Air Sepsis Recent Fever Within 48 Hours No Sepsis New/Unexplained Change in Mental Status N/A Sepsis Action Taken by Nursing No Action Required 10/16/24 13:20 10/16/24 13:20 10/16/24 13:24 Temperature Temperature Source Pulse Rate - Lying 59 L Pulse Rate - Sitting 60 Pulse Rate - Standing 63 Pulse Rate Pulse Rate [Right Brachial] 62 Pulse Rhythm [Right Brachial] Regular Pulse Strength [Right Brachial] Normal Respiratory Rate 20 Respiratory Rate [Exercises] 22 Respiratory Effort / Characteristics Non-Labored Respiratory Depth Normal Respiratory Pattern Regular Blood Pressure - Lying 201/105 H Blood Pressure - Sitting 202/110 H Blood Pressure- Standing 161/97 H Blood Pressure Blood Pressure [Right Arm] 161/97 H Blood Pressure Mean Blood Pressure Mean [Right Arm] 118 Blood Pressure Position [Right Arm] Lying Pulse Oximetry 98 Pulse Oximetry [Exercises] 94 Oxygen Delivery Method Room Air Room Air Sepsis Recent Fever Within 48 Hours Sepsis New/Unexplained Change in Mental Status Sepsis Action Taken by Nursing Laboratory Data 10/16/24 11:55 10/16/24 11:55 Lab Results 10/16/24 Range/Units 11:55 WBC 4.18 L (4.8-10.8) K/ul RBC 3.97 L (4.70-6.10) M/uL Hgb 11.6 L (14.0-18.0) g/dl Hct 36.1 L (42.0-52.0) % MCV 90.9 (80.0-100.0) fL MCH 29.2 (25.0-34.0) pg MCHC 32.1 (32.0-36.0) g/dL RDW Std Deviation 47.6 H (36.4-46.3) fL RDW Coeff of Loretta 14.2 (11.5-14.5) % Plt Count 160 (130-400) K/uL MPV 9.8 (9.4-12.4) fL Immature Gran % (Auto) 0.2 % Neut % (Auto) 68.4 % Lymph % (Auto) 11.5 % Hettinger % (Auto) 15.6 % Eos % (Auto) 3.6 % Baso % (Auto) 0.7 % Neut # (Auto) 2.86 (1.40-6.50) K/uL Lymph # (Auto) 0.48 L (1.20-3.40) K/uL Hettinger # (Auto) 0.65 H (0.11-0.59) K/uL Eos # (Auto) 0.15 (0.00-0.50) K/uL Baso # (Auto) 0.03 (0.00-0.20) K/uL Immature Gran # (Auto) 0.01 (0.01-0.20) K/uL PT 13.5 H (9.0-12.0) Seconds INR 1.3 H (0.9-1.1) Sodium 136 (136-145) mmol/L Potassium 3.9 (3.5-5.1) mmol/L Chloride 104 (98-107) mmol/L Carbon Dioxide 27 (21-32) mmol/L Anion Gap 5 (3-11) BUN 31 H (6-23) mg/dl Creatinine 1.24 (0.6-1.4) mg/dl Est Cr Clr Drug Dosing 59.0 ml/min eGFR 57.33 BUN/Creatinine Ratio 25.0 H (10-20) Glucose 94 (70-99(Fasting)) mg/dl Calcium 9.5 (8.6-10.3) mg/dl Magnesium 2.3 (1.7-2.4) mg/dl Total Bilirubin 0.9 (0.2-1.0) mg/dl AST 25 (13-39) U/L ALT 18 (7-52) U/L Alkaline Phosphatase 104 (34-104) U/L Troponin I High Sens 13.9 (0-20) pg/ml B-Natriuretic Peptide 682 H (0-100) pg/ml Total Protein 6.3 (6.0-8.3) gm/dl Albumin 3.8 (3.4-5.0) gm/dl Globulin 2.5 (2.5-4.0) gm/dl Albumin/Globulin Ratio 1.5 (0.9-2) Lipase 8 L (11-82) U/L Imaging Data Radiologist's Impression: Chest X-Ray 10/16/24 11:33 XR chest 1V portable CLINICAL HISTORY: Chest pain, nonspecific COMPARISON STUDY: 07/22/2024 FINDINGS: Stable cardiomegaly with mild pulmonary vascular congestion. There is interval mild blunting of the right costophrenic angle. No other consolidation or pleural effusion. No pneumothorax. IMPRESSION: 1. Mild CHF. 2. Possible trace right pleural effusion. ACT 112: Negative or not required by law. Electronically signed by: Getachew Alfredo M.D. 10/16/2024 11:53 AM Discharge Plan Visit Data Chief Complaint: Cardiac Assessment Stated Complaint: BRADYCARDIA/39BPM, HIGH BP ED Provider: Zelda Zhang Discharge Problem: Acute exacerbation of CHF (congestive heart failure), Dizziness Condition: Fair Forms Stand Alone Forms: My [facility] Prescriptions Prescriptions: No Action losartan 100 mg tablet 100 mg PO QAM Qty: 90 3RF flecainide 150 mg tablet 150 mg PO Q12H Qty: 180 3RF multivitamin [Multiple Vitamins] tablet 1 tab PO QAM Rx Instructions: Unable to verify OTC meds at this date/time. zinc gluconate 50 mg tablet 25 mg PO QAM Rx Instructions: Unable to verify OTC meds at this date/time. solifenacin [Vesicare] 5 mg tablet 5 mg PO DAILY Qty: 90 3RF Rx Instructions: Last filled 06/2024 x90 day supply dutasteride 0.5 mg capsule 0.5 mg PO DAILY Qty: 90 3RF ascorbic acid (vitamin C) [Vitamin C] 500 mg Tablet 500 mg PO QAM cholecalciferol (vitamin D3) [Vitamin D3] 25 mcg (1,000 unit) tablet 1,000 unit PO QAM Rx Instructions: Unable to verify OTC meds at this date/time. cyanocobalamin (vitamin B-12) [Vitamin B-12] 500 mcg Tablet 500 mcg PO QAM Patient Comments: YOU CAN CHEW IT BUT I JUST SWALLOW IT Rx Instructions: Unable to verify OTC meds at this date/time. polyethylene glycol 3350 [Miralax] 17 gram Powder In Packet 17 g PO QAM Patient Comments: MOSTLY EVERY MORNING Rx Instructions: Unable to verify OTC meds at this date/time. tavaborole 5 % solution with applicator 1 applic TOPICAL DAILY potassium chloride 20 mEq tablet,ER particles/crystals 20 meq PO DAILY PRN (Reason: Take w/ Lasix) Eliquis 5 mg tablet 0 mg PO BID Rx Instructions: Last filled 08/2024 x30 day supply. Unable to verify if pt possibly getting samples. Original Directions: 5mg by mouth twice daily PreserVision AREDS-2 250-90-40-1 mg Capsule 1 tab PO BID Rx Instructions: Unable to verify OTC meds at this date/time. bisacodyl [Dulcolax (bisacodyl)] 5 mg Tablet,Delayed Release (Dr/Ec) 5 mg PO DAILY PRN (Reason: Constipation) Rx Instructions: Unable to verify OTC meds at this date/time. furosemide 40 mg tablet 40 mg PO DAILY PRN (Reason: edema) Rx Instructions: Take with potassium supplement (20 meq) Referrals Referrals: Srinath Christianson DO [Primary Care Provider] -
[2024-10-16 12:15] LABS: Basophils # (auto) 0.03 K/uL (0.00-0.20); Basophils % (auto) 0.7 %; Eosinophils # (auto) 0.15 K/uL (0.00-0.50); Eosinophils % (auto) 3.6 %; Hematocrit (blood only) 36.1 % (42.0-52.0); Hemoglobin 11.6 g/dl (14.0-18.0); Immature Granulocytes # (auto) 0.01 K/uL (0.01-0.20); Immature Granulocytes % (auto) 0.2 %; Lymphocytes # (auto) 0.48 K/uL (1.20-3.40); Lymphocytes % (auto) 11.5 %; Mean Corpuscular Hemoglobin 29.2 pg (25.0-34.0); Mean Corpuscular Hgb Conc 32.1 g/dL (32.0-36.0); Mean Corpuscular Volume 90.9 fL (80.0-100.0); Mean Platelet Volume 9.8 fL (9.4-12.4); Monocytes # (auto) 0.65 K/uL (0.11-0.59); Monocytes % (auto) 15.6 %; Neutrophils # (auto) 2.86 K/uL (1.40-6.50); Neutrophils % (auto) 68.4 %; Platelet Count 160 K/uL (130-400); RDW Coefficient of Variation 14.2 % (11.5-14.5); RDW Standard Deviation 47.6 fL (36.4-46.3); Red Blood Count 3.97 M/uL (4.70-6.10); White Blood Count 4.18 K/ul (4.8-10.8)
[2024-10-16 12:30] LABS: Albumin Globulin Ratio 1.5 (0.9-2); Bilirubin,Total 0.9 mg/dl (0.2-1.0); Calcium 9.5 mg/dl (8.6-10.3); Globulin 2.5 gm/dl (2.5-4.0); Magnesium 2.3 mg/dl (1.7-2.4); Potassium 3.9 mmol/L (3.5-5.1); Total Protein 6.3 gm/dl (6.0-8.3)
[2024-10-16 12:37] LABS: Troponin I High Sensitivity 13.9 pg/ml (0-20)
[2024-10-16 12:41] LABS: INR 1.3 (0.9-1.1); Prothrombin Time 13.5 Seconds (9.0-12.0)
--- NOTE | 2024-10-16 13:17 | Electrocardiogram Report ---
Test Reason : Blood Pressure : */* mmHG Vent. Rate : 60 BPM Atrial Rate : 60 BPM P-R Int : 120 ms QRS Dur : 140 ms QT Int : 416 ms P-R-T Axes : 86 15 131 degrees QTcB Int : 416 ms Normal sinus rhythm with 1st degree AV block Non-specific intra-ventricular conduction block Nonspecific T wave abnormality Abnormal ECG Confirmed by Garcia Anglin ([id number]) on 10/16/2024 1:17:38 PM Referred By: REFERRED SELF Confirmed By: Garcia Anglin
[2024-10-16] MEDS: FUROSEMIDE 40 MG/4 ML VIAL IV ONE (15:13)
[2024-10-16] MEDS ORDERED: NITROGLYCERIN SL 0.4 MG/TAB TAB SL PRN (15:16)
[2024-10-16] MEDS ORDERED: POLYETHYLENE (MIRALAX) 17 GM PACK PO PRN (15:16)
--- NOTE | 2024-10-16 15:28 | History & Physical Report ---
Date of Service October 16, 2024 Assessment & Plan (1) Acute exacerbation of CHF (congestive heart failure): Plan: Acute exacerbation of systolic CHF in an 83 yo male with Nonsichemic cardiomyopathy Mild left ventricular systolic dysfunction on 03/2024 echo Patient appears volume overloaded. will admit to PCU and place on diuretics. will monitor Is and Os. \\ (2) Dizziness: Plan: likely a combination of above pronblem and sick sinus syndrome. (3) SSS (sick sinus syndrome): Plan: WILL NEED PACEMAKER (4) BMI 35.0-35.9,adult: Plan: life style modifications. though fluid retention may also be playing a role. History of Present Illness Chief Complaint: SOB Primary Care Provider: Srinath Christianson DO 83 yo male with PMH of paroxysmal atrial fibrillation, sick sinus syndrome and nonischemic systolic heart failure comes in with fatigue, SOB over the past week. Patient reports due to frequent urination when he is attending work meetings, he has been noncompliant with his diuretics. Patient reports today he has been more short of breath with weakness in his legs. While his evaluation by PT, he was found to have a low heart rate. Patient denies any dizziness. Allergies Allergy/AdvReac Type Severity Reaction Status Date / Time morphine Allergy Severe Reddened Verified 10/01/24 16:01 face/Hot flashes/Tongue swelling chlorhexidine AdvReac Intermediate Rash Verified 10/01/24 16:01 lisinopril AdvReac Intermediate cough Verified 10/01/24 16:01 nebivolol [From Bystolic] AdvReac Unknown Unknown Verified 10/01/24 16:01 tamsulosin AdvReac Unknown Unknown Verified 10/01/24 16:01 Home Medications Medication Instructions Recorded Confirmed Type multivitamin (Multiple Vitamins 1 tab PO QAM 03/05/19 10/16/24 History tablet) ascorbic acid (vitamin C) 500 mg 500 mg PO QAM 11/29/20 10/16/24 History tablet (Vitamin C) cyanocobalamin (vitamin B-12) 500 500 mcg PO QAM 08/15/21 10/16/24 History mcg tablet (Vitamin B-12) polyethylene glycol 3350 17 gram 17 g PO QAM 08/15/21 10/16/24 History oral powder packet (Miralax) cholecalciferol (vitamin D3) 25 1,000 unit PO QAM 11/09/21 10/16/24 History mcg (1,000 unit) tablet (Vitamin D3) zinc gluconate 50 mg tablet 25 mg PO QAM 11/16/22 10/16/24 History vit C 250 mg-vit E 90 mg-zinc 40 1 tab PO BID 01/14/24 10/16/24 History mg-copper 1 [id number] capsule (PreserVision AREDS-2) dutasteride 0.5 mg capsule 0.5 mg PO DAILY #90 caps 05/28/24 10/16/24 Rx bisacodyl 5 mg tablet,delayed 5 mg PO DAILY PRN Constipation 06/05/24 10/16/24 History release (Dulcolax (bisacodyl)) furosemide 40 mg tablet 40 mg PO DAILY PRN edema 06/05/24 10/16/24 History solifenacin 5 mg tablet (Vesicare) 5 mg PO DAILY #90 tabs 06/24/24 10/16/24 Rx flecainide 150 mg tablet 150 mg PO Q12H #180 tabs 08/14/24 10/16/24 Rx losartan 100 mg tablet 100 mg PO QAM #90 tabs 08/14/24 10/16/24 Rx apixaban 5 mg tablet (Eliquis) 0 mg PO BID 10/16/24 10/16/24 History potassium chloride 20 mEq 20 meq PO DAILY PRN Take w/ Lasix 10/16/24 10/16/24 History tablet,extended release(part/cryst) tavaborole 5 % topical solution 1 applic topical DAILY 10/16/24 10/16/24 History with applicator Past Med/Surg History Problem List Dizziness (Acute) Acute exacerbation of CHF (congestive heart failure) (Acute) SSS (sick sinus syndrome) follows with [facility]ology- maría Nonischemic cardiomyopathy First degree atrioventricular block by electrocardiogram Bladder outlet obstruction Bladder mass HFrEF (heart failure with reduced ejection fraction) Paroxysmal atrial fibrillation (2013) no cardioversion Elevated PSA (Chronic) Anemia Cardiomyopathy Osteoarthritis of left hip Lumbar disc disease with radiculopathy Lumbar degenerative disc disease Impaired mobility Pre-diabetes Vitamin B12 deficiency Mild cognitive disorder BMI 35.0-35.9,adult (Acute) 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 Macular degeneration early Impaired mobility using walker History of vitamin D deficiency borderline. Mild cognitive disorder sometimes forgetful/pt reports thinks age related. No neurology dx, no neurology. pt reports wellness cognitive test upcoming sometime 2023. Pre-diabetes pt denies Lumbar degenerative disc disease steroid injection for back December 26 2023 Overactive bladder Enlarged prostate Arthritis HTN (hypertension) controlled, stable per pt History of kidney stones (~2003) Rosacea Surgical History S/P epidural steroid injection (12/2023) Status post total hip replacement, bilateral (2023) 01/2024 and 03/26, using walker Hx of bilateral cataract extraction History of colonoscopy with polypectomy "Pre cancerous, got it all" H/O shoulder surgery (2004) right- 2005, repair of rotator cuff. Family History Son Esophageal reflux Brother Brain tumor Prostate cancer Unknown Nephrolithiasis Denies family history of Ovarian cancer Diabetes Myocardial infarction Breast cancer Lung cancer Colorectal cancer Hypertension Social History Smoking Status: Never smoker Tobacco Type: Cigarettes Age Started Using Tobacco: 16; Age Quit Using Tobacco: 21; packs per day: 0.25; Second Hand Exposure: No; Do You Dip or Chew Tobacco: No; Tobacco Cessation Education Requested by Patient: No Hx Alcohol Use: Yes Alcohol type: wine and hard liquor Alcohol Intake Frequency: 2-3 x/Week Hx Substance Use: No Preferred Language: Northern Irish Communication Ability: Effective Visual Impairment: No Limitations Hearing Ability: Use of Hearing Aid Duck Operator Required: No Beliefs That Will Affect Care: None marital status: Current Living Situation: Spouse Current Living Situation Comment: with , kids are near by to help if needed current occupational status: employed How many Children do You have: 2 Other Information That Helps Us Care for You: No Feels Safe at Home: Yes Safety Concerns: Feels Safe At This Time Childhood Exposure to Second-Hand Smoke: No caffeine: Yes Dental Care, Regularly: Yes Physical Activity Frequency: Does not Exercise Seatbelt Use: always Sunscreen Use: Yes Assistive Devices: Cane, Glasses and Hearing Aid - Bilateral Review of Systems Constitutional: no fever and no body aches Eyes: no blind spots Ear, Nose, Mouth, Throat: no ear pain Respiratory: + dyspnea; no cough Cardiovascular: no chest pain Gastrointestinal: no abdominal pain Genitourinary: no dysuria Musculoskeletal: no back pain Integumentary: no rash Neurologic: no gait abnormality Psychiatric: no behavioral changes Endocrine: no fatigue Hematologic / Lymphatic: no easy bleeding Allergy / Immunological: no GI upset with certain foods Physical Exam Constitutional: WD/WN, vitals as above Eyes: PERRL, conjunctivae normal, anicteric sclerae ENMT: external ear and nose normal, oropharynx normal Neck: trachea midline, no thyromegaly Respiratory: Auscultation: + rales Cardiovascular: RRR, no murmur, no edema Gastrointestinal (Abdomen): normal bowel sounds, soft, nontender, no hepatosplenomegaly Musculoskeletal: no cyanosis or clubbing, extremities motor strength 5/5 Skin: no rashes, warm and dry Neurologic: normal touch/pain/proprioception Psychiatric: A+Ox3, euthymic affect Lymphatic: no cervical or axillary lymphadenopathy Results & Data Results & Data Vital Signs (Past 12 Hours) Vital Signs Temp Pulse Pulse Resp Resp BP BP 10/16/24 15:00 59 L 18 203/111 H 10/16/24 13:24 62 20 161/97 H 10/16/24 13:20 22 10/16/24 12:56 59 L 10/16/24 11:33 10/16/24 11:27 36.5 C 58 L 18 177/89 H Pulse Ox Pulse Ox O2 Del Method 10/16/24 15:00 95 Room Air 10/16/24 13:24 98 Room Air 10/16/24 13:20 94 Room Air 10/16/24 12:56 10/16/24 11:33 96 Room Air 10/16/24 11:27 98 Room Air PG Care Time/CCT Total # of Minutes Spent Total Time Spent with Patient: Total time spent is greater than 50% in coordination of care (as documented) at patient's floor/unit and/or counseling patient: Coding Level of Care Code 50920 INT INP/OBS CARE MIN Diagnoses Acute exacerbation of CHF (congestive heart failure) I50.9 Dizziness R42 SSS (sick sinus syndrome) I49.5 BMI 35.0-35.9,adult Z68.35
--- NOTE | 2024-10-16 18:10 | Cardiology Consultation ---
Date of Consultation October 16, 2024 Assessment & Plan (1) Acute exacerbation of CHF (congestive heart failure): (2) SSS (sick sinus syndrome): (3) Nonischemic cardiomyopathy: (4) Paroxysmal atrial fibrillation: Plan 1. Acute decompensated heart failure with reduced ejection fraction: He is known to be noncompliant with diuretic therapy. This is the likely etiology of his current dyspnea and mild pulmonary vascular congestion. Elevated BNP. Episodes of bradycardia may also be contributing. He did receive a diuretic in the emergency room. This can be continued until we see some change in his renal function or he is clinically improved. We should encourage compliance with his outpatient medical regimen. 2. Heart failure with midrange ejection fraction: He is on losartan. Beta- blockade was discontinued previously due to bradycardia. SGLT2 inhibitor was also tried but he had a urinary tract infection and will not consent to that medication again. Losartan could be changed to Entresto if his blood pressure remains elevated. He would likely benefit from a pacemaker to facilitate more aggressive treatment of his LV dysfunction. 3. Symptomatic bradycardia: He has been some debate over time as to the frequency of low heart rates and their association with his symptoms. However today there seems to be a good correlation based on his current heart rates not measured at his physical therapist office. His medical therapy has been de- escalated due to bradycardia. In general I think he would benefit from a pacemaker for rate support. This would facilitate more aggressive treatment of his LV dysfunction, atrial fibrillation and likely reduce symptoms. 4. Atrial fibrillation: Paroxysmal. 43% on his last outpatient monitor. No symptoms recently. He has been taking flecainide on his own in order to reduce atrial fibrillation. I suspect that if he had a pacemaker and aggressive rate control he would not notice much atrial fibrillation. This would obviate the need for flecainide. I will stop flecainide at this point. History of Present Illness Reason for Consultation: Shortness of breath, bradycardia Requesting Physician: Sawyer Attending Physician: Bharathi Jacques History of Present Illness The patient is an 83-year-old gentleman with a history of paroxysmal atrial fibrillation, sick sinus syndrome and heart failure with midrange ejection fraction who reported to the hospital with symptoms of weakness and dyspnea. Patient has history of noncompliance with his diuretic therapy. This is primarily due to concerns of frequent urination when he is running errands or attending meetings. Today when walking to his physical therapy appointment he had an element of dyspnea and weakness in the legs. He was evaluated by his physical therapist who thought that his heart rate was low and recommended evalu ation in the hospital. The patient states that he has episodes like this on occasion and recently visited his primary care physician with similar symptoms. At that time he was reportedly in atrial fibrillation with a slow ventricular rate. Normally he is ambulatory with a cane. He generally has few limitations. Some mild dyspnea with extended walking. He specifically denied a sense of dizziness or lightheadedness. He has not felt like he has had atrial fibrillation and some time. He is generally not aware of any palpitations. He does sleep in a medical recliner. This is primarily due to some hip discomfort and difficulty getting out of bed. He does have some frequent urination at nighttime. He did not endorse symptoms of classic orthopnea. He does have lower extremity edema which is fairly chronic. Allergies Allergy/AdvReac Type Severity Reaction Status Date / Time morphine Allergy Severe Reddened Verified 10/01/24 16:01 face/Hot flashes/Tongue swelling chlorhexidine AdvReac Intermediate Rash Verified 10/01/24 16:01 lisinopril AdvReac Intermediate cough Verified 10/01/24 16:01 nebivolol [From Bystolic] AdvReac Unknown Unknown Verified 10/01/24 16:01 tamsulosin AdvReac Unknown Unknown Verified 10/01/24 16:01 Home Medications Medication Instructions Recorded Confirmed Type multivitamin (Multiple Vitamins 1 tab PO QAM 03/05/19 10/16/24 History tablet) ascorbic acid (vitamin C) 500 mg 500 mg PO QAM 11/29/20 10/16/24 History tablet (Vitamin C) cyanocobalamin (vitamin B-12) 500 500 mcg PO QAM 08/15/21 10/16/24 History mcg tablet (Vitamin B-12) polyethylene glycol 3350 17 gram 17 g PO QAM 08/15/21 10/16/24 History oral powder packet (Miralax) cholecalciferol (vitamin D3) 25 1,000 unit PO QAM 11/09/21 10/16/24 History mcg (1,000 unit) tablet (Vitamin D3) zinc gluconate 50 mg tablet 25 mg PO QAM 11/16/22 10/16/24 History vit C 250 mg-vit E 90 mg-zinc 40 1 tab PO BID 01/14/24 10/16/24 History mg-copper 1 qp-bihvia-mpkvgm capsule (PreserVision AREDS-2) dutasteride 0.5 mg capsule 0.5 mg PO DAILY #90 caps 05/28/24 10/16/24 Rx bisacodyl 5 mg tablet,delayed 5 mg PO DAILY PRN Constipation 06/05/24 10/16/24 History release (Dulcolax (bisacodyl)) furosemide 40 mg tablet 40 mg PO DAILY PRN edema 06/05/24 10/16/24 History solifenacin 5 mg tablet (Vesicare) 5 mg PO DAILY #90 tabs 06/24/24 10/16/24 Rx flecainide 150 mg tablet 150 mg PO Q12H #180 tabs 08/14/24 10/16/24 Rx losartan 100 mg tablet 100 mg PO QAM #90 tabs 08/14/24 10/16/24 Rx apixaban 5 mg tablet (Eliquis) 0 mg PO BID 10/16/24 10/16/24 History potassium chloride 20 mEq 20 meq PO DAILY PRN Take w/ Lasix 10/16/24 10/16/24 History tablet,extended release(part/cryst) tavaborole 5 % topical solution 1 applic topical DAILY 10/16/24 10/16/24 History with applicator Patient History Medical History UTI (urinary tract infection) Urge incontinence Cardiomyopathy Benign localized hyperplasia of prostate with urinary obstruction Anemia Testicular swelling Edema of both legs Hypertension Neck problem Macular degeneration Impaired mobility History of vitamin D deficiency Mild cognitive disorder Pre-diabetes Lumbar degenerative disc disease Overactive bladder Enlarged prostate Arthritis HTN (hypertension) History of kidney stones (~2003) Rosacea SSS (sick sinus syndrome) Surgical History S/P epidural steroid injection (12/2023) Status post total hip replacement, bilateral (2023) Hx of bilateral cataract extraction History of colonoscopy with polypectomy H/O shoulder surgery (2004) Family History Son Esophageal reflux Brother Brain tumor Prostate cancer Unknown Nephrolithiasis Denies family history of Ovarian cancer Diabetes Myocardial infarction Breast cancer Lung cancer Colorectal cancer Hypertension Social History Smoking Status: Never smoker Tobacco Type: Cigarettes Age Started Using Tobacco: 16; Age Quit Using Tobacco: 21; packs per day: 0.25; Second Hand Exposure: No; Do You Dip or Chew Tobacco: No; Tobacco Cessation Education Requested by Patient: No Hx Alcohol Use: Yes Alcohol type: wine and hard liquor Alcohol Intake Frequency: 2-3 x/Week Hx Substance Use: No Preferred Language: Sami Communication Ability: Effective Visual Impairment: No Limitations Hearing Ability: Use of Hearing Aid Animal Feeder Required: No Beliefs That Will Affect Care: None marital status: Current Living Situation: Spouse Current Living Situation Comment: with , kids are near by to help if needed current occupational status: employed How many Children do You have: 2 Other Information That Helps Us Care for You: No Feels Safe at Home: Yes Safety Concerns: Feels Safe At This Time Childhood Exposure to Second-Hand Smoke: No caffeine: Yes Dental Care, Regularly: Yes Physical Activity Frequency: Does not Exercise Seatbelt Use: always Sunscreen Use: Yes Assistive Devices: Cane, Glasses and Hearing Aid - Bilateral Review of Systems Review of Systems: Per HPI Physical Exam Physical Exam: The patient is alert and oriented. Mood and affect appeared normal. He answered all questions appropriately. HEENT: Pupils are equal and reactive to light and accommodation. Extraocular movements are intact. The sclerae are anicteric. Neuro: Cranial nerves intact Lungs: Clear to auscultation bilaterally. He has good air movement without use of accessory muscles. No rales wheezes or rhonchi. Cardiac: Heart demonstrates a slow rhythm with occasional ectopy. Normal S1 and S2. No murmurs on examination. Pulses: The patient has palpable radial pulses bilaterally that are equal in intensity Extremities: There was no evidence of hypoperfusion. There is no cyanosis or clubbing. Severe lower extremity edema with some trophic changes. Skin: I did not appreciate any rashes on examination today. Results & Data Vital Signs (Past 12 Hours) Vital Signs Temp Pulse Pulse Pulse Resp Resp BP 10/16/24 17:00 36.1 C L 37 L 18 10/16/24 16:47 10/16/24 16:39 56 L 20 10/16/24 15:35 63 25 H 10/16/24 15:00 59 L 18 10/16/24 13:24 62 20 10/16/24 13:20 22 10/16/24 12:56 59 L 10/16/24 11:33 10/16/24 11:27 36.5 C 58 L 18 177/89 H BP BP Pulse Ox Pulse Ox O2 Del Method 10/16/24 17:00 125/84 100 Room Air 10/16/24 16:47 Room Air 10/16/24 16:39 190/84 H 98 Room Air 10/16/24 15:35 211/111 H 97 Room Air 10/16/24 15:00 203/111 H 95 Room Air 10/16/24 13:24 161/97 H 98 Room Air 10/16/24 13:20 94 Room Air 10/16/24 12:56 10/16/24 11:33 96 Room Air 10/16/24 11:27 98 Room Air Laboratory Results Abnormal Lab Results 10/16/24 11:55 WBC 4.18 L RBC 3.97 L Hgb 11.6 L Hct 36.1 L MCV 90.9 MCH 29.2 MCHC 32.1 RDW Std Deviation 47.6 H RDW Coeff of Loretta 14.2 Plt Count 160 MPV 9.8 Immature Gran % (Auto) 0.2 Neut % (Auto) 68.4 Lymph % (Auto) 11.5 [place] % (Auto) 15.6 Eos % (Auto) 3.6 Baso % (Auto) 0.7 Neut # (Auto) 2.86 Lymph # (Auto) 0.48 L [place] # (Auto) 0.65 H Eos # (Auto) 0.15 Baso # (Auto) 0.03 Immature Gran # (Auto) 0.01 PT 13.5 H INR 1.3 H Sodium 136 Potassium 3.9 Chloride 104 Carbon Dioxide 27 Anion Gap 5 BUN 31 H Creatinine 1.24 Est Cr Clr Drug Dosing 59.0 eGFR 57.33 BUN/Creatinine Ratio 25.0 H Glucose 94 Calcium 9.5 Magnesium 2.3 Total Bilirubin 0.9 AST 25 ALT 18 Alkaline Phosphatase 104 Troponin I High Sens 13.9 B-Natriuretic Peptide 682 H Total Protein 6.3 Albumin 3.8 Globulin 2.5 Albumin/Globulin Ratio 1.5 Lipase 8 L Diagnostic Findings Cardiac event monitor 08/25/2024: 43% atrial fibrillation with adequate rate control. Sinus rates from 62 to 138 bpm. Echocardiogram 03/12/2024: Mildly reduced LV systolic function with ejection fraction of 45 to 50%. Severe left atrial dilation. Mild right atrial dilation. PG Care Time/CCT Total # of Minutes Spent Total Time Spent with Patient: Total time spent is greater than 50% in coordination of care (as documented) at patient's floor/unit and/or counseling patient: Coding Level of Care Code 23527 INT INP/OBS CARE 375MIN Diagnoses Acute exacerbation of CHF (congestive heart failure) I50.9 SSS (sick sinus syndrome) I49.5 Nonischemic cardiomyopathy I42.8 Paroxysmal atrial fibrillation I48.0
[2024-10-16] MEDS: FLECAINIDE ACETATE 100 MG TABLET PO SCH (19:25)
[2024-10-16] MEDS: APIXABAN 5 MG TABLET PO SCH (21:00)
[2024-10-16] MEDS: CEROVITE ADV FORMULA TAB PO SCH (21:01)
[2024-10-16] MEDS: hydrALAZINE HCL 20 MG/ML VIAL IV PRN (23:49)
[2024-10-17] MEDS: ACETAMINOPHEN 325 MG TAB PO PRN (03:28)
[2024-10-17] MEDS: POTASSIUM CHLORIDE CRTAB 20 MEQ TABCR PO PRN (08:35)
[2024-10-17] MEDS: POLYETHYLENE (MIRALAX) 17 GM PACK PO SCH (08:35)
[2024-10-17] MEDS: FINASTERIDE 5 MG TAB PO SCH (08:37)
[2024-10-17] MEDS: ZINC SULFATE 220 MG CAPSULE PO SCH (08:37)
[2024-10-17] MEDS: CHOLECALCIFEROL 25 MCG (1000 UNITS) TAB PO SCH (08:37)
[2024-10-17] MEDS: OXYBUTYNIN CHLORIDE XL 5 MG TABCR PO SCH (08:37)
[2024-10-17] MEDS: CYANOCOBALAMIN (B-12) 500 MCG TABLET PO SCH (08:37)
[2024-10-17] MEDS: MULTIVITAMIN TAB PO SCH (08:38)
[2024-10-17] MEDS: ASCORBIC ACID 500 MG TAB PO SCH (08:38)
[2024-10-17] MEDS: LOSARTAN POTASSIUM 50 MG TAB PO SCH (08:38)
[2024-10-17] MEDS: ASPIRIN 81 MG ECTAB PO SCH (08:38)
[2024-10-17 09:31] LABS: Hemoglobin 12.2 g/dl (14.0-18.0); Mean Corpuscular Hgb Conc 32.1 g/dL (32.0-36.0); Mean Corpuscular Volume 90.5 fL (80.0-100.0); Mean Platelet Volume 10.2 fL (9.4-12.4); Platelet Count 176 K/uL (130-400); RDW Coefficient of Variation 14.2 % (11.5-14.5); White Blood Count 3.75 K/ul (4.8-10.8)
[2024-10-17 09:45] LABS: BUN Creatinine Ratio 23.1 (10-20); Calcium 9.6 mg/dl (8.6-10.3); Creatinine Clr Calc Pharmacy 64.2 ml/min; Potassium 3.4 mmol/L (3.5-5.1)
--- NOTE | 2024-10-17 12:12 | Cardiology Progress Note ---
Date of Service October 17, 2024 Assessment & Plan (1) Acute exacerbation of CHF (congestive heart failure): Plan: -Improved with intravenous diuretics. -Dr. Anglin is concerned that his bradycardia may be a contributing factor. -Permanent pacemaking will likely be beneficial. (2) SSS (sick sinus syndrome): Plan: -As above, Dr. Anglin recommends a permanent pacemaker. (3) Nonischemic cardiomyopathy: Plan: -Mild left ventricular dysfunction on echocardiogram, March 2024. -Repeat echocardiogram pending. (4) Paroxysmal atrial fibrillation: Plan: -Flecainide has been placed on hold. -Remains in sinus rhythm. Admission and Anticipated Discharge Date Admission Date: October 16, 2024 Subjective The patient is resting comfortably in the bedside chair without complaints of chest pain, dyspnea, or palpitations. We have discussed Dr. Anglin's recommendation of a permanent pacemaker. The patient understands and is willing to proceed. Physical Exam Physical Exam: In general this is a well-developed well-nourished white male in no acute distress. HEENT exam is negative. Neck reveals normal carotid upstrokes without bruits. . There is no thyromegaly. Cardiovascular exam reveals a regular rhythm with a normal S1 and S2. Heart sounds are distant. No obvious murmurs. Lungs are clear without rales, rhonchi, or wheezes. Abdomen is soft without bruits. Extremities reveal intact radial artery and posterior tibial pulses bilaterally. There is no peripheral edema. Results & Data Vital Signs (Past 12 Hours) Vital Signs Temp Pulse Pulse Resp BP BP Pulse Ox 10/17/24 11:43 36.5 C 55 L 17 172/77 H 99 10/17/24 08:02 36.7 C 62 21 148/66 H 96 10/17/24 07:45 62 10/17/24 05:30 170/79 H 10/17/24 03:22 36.8 C 66 18 205/96 H 95 O2 Del Method 10/17/24 11:43 Room Air 10/17/24 08:02 Room Air 10/17/24 07:45 10/17/24 05:30 10/17/24 03:22 Room Air Diagnostic Findings hall monitor notes sinus rhythm in the 50s. PG Care Time/CCT Total # of Minutes Spent Total Time Spent with Patient: Total time spent is greater than 50% in coordination of care (as documented) at patient's floor/unit and/or counseling patient: Coding Level of Care Code 00254 SUB INP/OBS CARE MIN Diagnoses Acute exacerbation of CHF (congestive heart failure) I50.9 SSS (sick sinus syndrome) I49.5 Nonischemic cardiomyopathy I42.8 Paroxysmal atrial fibrillation I48.0
--- NOTE | 2024-10-17 12:49 | XCELERA ---
[id number]
[2024-10-17] MEDS: FUROSEMIDE 40 MG/4 ML VIAL IV ONE (16:06)
[2024-10-17] MEDS: POTASSIUM CHLORIDE CRTAB 20 MEQ TABCR PO STA (16:06)
--- NOTE | 2024-10-17 23:47 | Hospitalist Progress Note ---
Date of Service October 17, 2024 Assessment & Plan (1) Acute exacerbation of CHF (congestive heart failure): Plan: Acute exacerbation of systolic CHF in an 83 yo male with Nonsichemic cardiomyopathy Echo was ordered and reviewed. ordered additional dose of IV lasix, renal function is stable. will monitor. (2) Dizziness: Plan: from sick sinus syndrome will require pacemaker holding eliquis (3) SSS (sick sinus syndrome): Plan: WILL NEED PACEMAKER (4) BMI 35.0-35.9,adult: Admission and Anticipated Discharge Date Admission Date: October 16, 2024 Subjective PATIENT REPORTS FEELInG BETTER. HIS LEG SWELLING HAS IMPROVED. Physical Exam Constitutional: WD/WN, vitals as above Neck: trachea midline, no thyromegaly Respiratory: normal respiratory effort, lungs clear to auscultation Cardiovascular: RRR, no murmur, no edema Gastrointestinal (Abdomen): normal bowel sounds, soft, nontender, no hepatosplenomegaly Results & Data Results & Data Vital Signs (Past 12 Hours) Vital Signs Temp Pulse Pulse Resp BP BP Pulse Ox 10/17/24 23:00 59 L 10/17/24 21:49 10/17/24 20:14 36.6 C 56 L 17 167/80 H 98 10/17/24 15:43 36.6 C 54 L 19 174/82 H 99 10/17/24 15:36 54 L O2 Del Method 10/17/24 23:00 10/17/24 21:49 Room Air 10/17/24 20:14 Room Air 10/17/24 15:43 Room Air 10/17/24 15:36 PG Care Time/CCT Total # of Minutes Spent Total Time Spent with Patient: Total time spent is greater than 50% in coordination of care (as documented) at patient's floor/unit and/or counseling patient: Coding Level of Care Code 77354 SUB INP/OBS CARE 3/50MIN Diagnoses Acute exacerbation of CHF (congestive heart failure) I50.9 Dizziness R42 SSS (sick sinus syndrome) I49.5 BMI 35.0-35.9,adult Z68.35
[2024-10-18] MEDS: hydrALAZINE HCL 20 MG/ML VIAL IV ONE (01:01)
[2024-10-18 06:38] LABS: Hematocrit (blood only) 37.6 % (42.0-52.0); Hemoglobin 12.4 g/dl (14.0-18.0); Mean Corpuscular Hemoglobin 29.5 pg (25.0-34.0); Mean Corpuscular Volume 89.3 fL (80.0-100.0); Mean Platelet Volume 9.8 fL (9.4-12.4); Platelet Count 181 K/uL (130-400); RDW Standard Deviation 45.8 fL (36.4-46.3); Red Blood Count 4.21 M/uL (4.70-6.10)
[2024-10-18 08:04] LABS: Calcium 9.7 mg/dl (8.6-10.3); Creatinine Clr Calc Pharmacy 61.3 ml/min; Potassium 3.7 mmol/L (3.5-5.1)
[2024-10-18] MEDS: bisacodyL 5 MG TABEC PO PRN (08:47)
--- NOTE | 2024-10-18 09:24 | Hospitalist Progress Note ---
Date of Service October 18, 2024 Assessment & Plan (1) Acute exacerbation of CHF (congestive heart failure): Plan: Acute exacerbation of systolic CHF in an 83 yo male with Nonsichemic cardiomyopathy Echo was ordered and reviewed. continue IV lasix will monitor. (2) Dizziness: Plan: from sick sinus syndrome will require pacemaker holding eliquis (3) SSS (sick sinus syndrome): Plan: WILL NEED PACEMAKER planned for tomorrow in AM (4) BMI 35.0-35.9,adult: Plan: life style modifications. though fluid retention may also be playing a role. Admission and Anticipated Discharge Date Admission Date: October 16, 2024 Subjective Patient reports no new symptoms. Physical Exam Constitutional: WD/WN, vitals as above Neck: trachea midline, no thyromegaly Respiratory: normal respiratory effort, lungs clear to auscultation Cardiovascular: RRR, no murmur, no edema Gastrointestinal (Abdomen): normal bowel sounds, soft, nontender, no hepatosplenomegaly Results & Data Results & Data Vital Signs (Past 12 Hours) Vital Signs Temp Pulse Pulse Resp BP BP Pulse Ox 10/18/24 07:48 36.6 C 56 L 21 153/73 H 95 10/18/24 07:00 65 10/18/24 02:27 36.6 C 66 18 162/79 H 94 10/18/24 00:51 63 192/82 H 10/17/24 23:58 64 197/90 H 10/17/24 23:46 36.5 C 66 18 218/103 H 97 10/17/24 23:00 59 L 10/17/24 21:49 O2 Del Method 10/18/24 07:48 Room Air 10/18/24 07:00 10/18/24 02:27 Room Air 10/18/24 00:51 10/17/24 23:58 10/17/24 23:46 Room Air 10/17/24 23:00 10/17/24 21:49 Room Air PG Care Time/CCT Total # of Minutes Spent Total Time Spent with Patient: Total time spent is greater than 50% in coordination of care (as documented) at patient's floor/unit and/or counseling patient: Coding Level of Care Code 51048 SUB INP/OBS CARE 3/50MIN Diagnoses Acute exacerbation of CHF (congestive heart failure) I50.9 Dizziness R42 SSS (sick sinus syndrome) I49.5 BMI 35.0-35.9,adult Z68.35
[2024-10-18] MEDS: FUROSEMIDE 40 MG/4 ML VIAL IV ONE (10:22)
[2024-10-18] MEDS ORDERED: LACTATED RINGER'S 1,000 ML IV SCH (16:15)
[2024-10-18] MEDS ORDERED: ceFAZolin 2000MG 2,000 MG/15 ML SYR IV SCH (16:45)
[2024-10-19] MEDS ORDERED: ceFAZolin 330 MG/ML 1 GM VIAL IV SCH (06:00)
--- NOTE | 2024-10-19 08:58 | Post Anesthesia Assessment ---
Date of Service October 19, 2024 Post Sedation Assessment Vital Signs Temp Pulse Pulse Resp BP BP Pulse Ox 10/19/24 08:30 59 L 14 156/79 H 96 10/19/24 07:59 36.7 C 70 18 128/56 L 152/60 H 96 10/19/24 04:40 36.6 C 68 18 168/73 H 95 10/19/24 00:16 36.6 C 60 18 167/79 H 97 10/18/24 22:00 60 10/18/24 20:15 36.4 C L 57 L 18 125/63 57 L 10/18/24 20:00 10/18/24 15:26 36.8 C 62 19 150/73 H 99 10/18/24 15:15 69 10/18/24 10:44 36.5 C 58 L 17 163/82 H 98 10/18/24 09:00 O2 Del Method 10/19/24 08:30 Room Air 10/19/24 07:59 Room Air 10/19/24 04:40 Room Air 10/19/24 00:16 Room Air 10/18/24 22:00 10/18/24 20:15 Room Air 10/18/24 20:00 Room Air 10/18/24 15:26 Room Air 10/18/24 15:15 10/18/24 10:44 Room Air 10/18/24 09:00 Room Air Recovery Score Activity: Moves 4 extremities Respiration: Deep Breath/Cough Circulation: +/-20% PreAnes Value Consciousness: Fully Awake Oxygen Saturation: > 92% On Room Air Discharge Sedation Level of Care: Fast Track Phase II Post Sedation Plan On clinical assessment, the patient appears to have tolerated the sedation without complications. Patient is recovering as anticipated. Patient will continue to be monitored by nursing and may be discharged when sedation discharge criteria are met per below protocol. Upon Completions of procedure up to 15 minutes continue every 5 minute vital signs and the P.A.R. score; then discharge to a Phase I or Fast Track to Phase II per the following guidelines: * Discharge Patient to appropriate Phase II area if PAR is 8 or greater or return to pre- procedure baseline. The post - procedure orders will be as directed. * If PAR score is less than 8 or not return to pre-procedure baseline then patient will follow Phase I monitoring till PAR is reached for Phase II. The Phase I may be done in procedure room or may call to secure a Phase I area. * If naloxone or flumazenil are used for reversal, hold in Phase I for continued monitoring from when last reversal dose was given for a minimum of 60 minutes or longer pending the nurse and/or physician discretion of patient condition before discharge to Phase II. Please call the Sedation Physician to re-evaluate and complete post-note for discharge to Phase II area. Do NOT discharge from procedure sedation or Phase 1 until post- sedation evaluation note is complete by procedure /sedation MD Sedation Discharge Instructions to be given to the patient at discharge to home.
--- NOTE | 2024-10-19 09:31 | History & Physical Bridge Note ---
Date of Service October 19, 2024 History & Physical Bridge Note I have examined the patient, reviewed the History & Physical and in the interval since the performance of the History & Physical I have noted the following changes of clinical significance: no changes noted. I discussed options with him which include pacemaker implantation which may help his symptoms although we have not proven that and may allow more appropriate medications however with rhythm monitoring to determine his atrial fibrillation burden and rate we may be able to adjust his medications and avoid a pacemaker. He does not have a dangerous arrhythmia. We have therefore decided to implant a loop recorder at this time, he may well need a pacemaker but we both feel that he would be best served if we gather more information.
--- NOTE | 2024-10-19 09:58 | Electrophysiology Report ---
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 The patient was prepped and draped in the standard sterile manner for a loop recorder implantation. An area at the fourth left intercostal space and 1 cm left of the left sternal border was infiltrated with 1% lidocaine local anesthetic and a 0.5 cm incision was made through the skin. Using the loop recorder insertion tool the loop recorder was inserted through the incision at a 45 downward and leftward angle. The incision was closed with a subcutaneous continuous closure of 4-0 Vicryl followed by a running subcuticular skin closure of 4-0 Vicryl. Steri-Strips were applied and bacitracin ointment was placed on the incision. A dressing was applied. [facility] [place] Electrophysiology codes Indication for Procedure (1) SSS (sick sinus syndrome): Implantable Monitors Procedure 1: Implantable Monitors: [id number] Loop Recorder Implant
[2024-10-19 11:03] VITALS: RESP 16
[2024-10-19] MEDS: LIDOCAINE 1% LOCAL 20 ML VIAL ONE ×3 (11:07→11:08)
[2024-10-19] MEDS: ceFAZolin 2000MG 2,000 MG/15 ML SYR IV SCH (11:07)
[2024-10-19] MEDS: WATER, STERILE FOR INJ 10 ML VIAL ONE (11:08)
[2024-10-19] MEDS: VANCOMYCIN HCL 1000MG/20ML VIAL ONE (11:08)
[2024-10-19] MEDS: ceFAZolin 330 MG/ML 1 GM VIAL ONE (11:09)
[2024-10-19 11:32] VITALS: BP 162/90; PULSE 68; TEMP 98.1; O2SAT 97
[2024-10-19] MEDS: LACTATED RINGER'S 1,000 ML IV SCH (12:15)
--- NOTE | 2024-10-19 16:13 | Discharge Summary ---
Discharge Summary Date of Service October 19, 2024 Principal Dx & Hospital Course #1 = Principal Diagnosis (1) Acute exacerbation of CHF (congestive heart failure): Acute exacerbation of systolic CHF in an 83 yo male with Nonsichemic cardiomyopathy Echo was ordered and reviewed. Treated with IV lasix. Patient will be transitioned to oral diuretics (2) Dizziness: from sick sinus syndrome will require pacemaker holding eliquis (3) SSS (sick sinus syndrome): Loop recorder was implanted. (4) BMI 35.0-35.9,adult: life style modifications. though fluid retention may also be playing a role. Admission HPI Per Admitting Provider 83 yo male with PMH of paroxysmal atrial fibrillation, sick sinus syndrome and nonischemic systolic heart failure comes in with fatigue, SOB over the past week. Patient reports due to frequent urination when he is attending work meetings, he has been noncompliant with his diuretics. Patient reports today he has been more short of breath with weakness in his legs. While his evaluation by PT, he was found to have a low heart rate. Patient denies any dizziness. Discharge Exam Constitutional WD/WN, vitals as above Eyes PERRL, conjunctivae normal, anicteric sclerae ENMT external ear and nose normal, oropharynx normal Neck trachea midline, no thyromegaly Respiratory normal respiratory effort, lungs clear to auscultation Cardiovascular RRR, no murmur, no edema Gastrointestinal (Abdomen) normal bowel sounds, soft, nontender, no hepatosplenomegaly Musculoskeletal no cyanosis or clubbing, extremities motor strength 5/5 Skin no rashes, warm and dry Neurologic normal touch/pain/proprioception Psychiatric A+Ox3, euthymic affect Lymphatic no cervical or axillary lymphadenopathy Discharge Plan Discharge Items Patient Disposition: Home - Self-Care Reason For Visit: CHF EXACERBATION Discharge Diagnosis: CHF exacerbation Condition on Discharge: Fair Activity: Per Instructions section Non-emergency contact: Primary Care Provider Call non-emergency contact if: you have any medication questions Follow-up/Referrals: Osman Berry MD [Physician] - 10/21/24 9:00 am Karina Valentin PA-C [Physician Hot Car Operator] - 10/29/24 10:30 am Srinath Christianson DO [Primary Care Provider] - 10/27/24 2:30 pm (Primary care hospital follow up scheduled on 10/27/24 at 2:30 with Maria Del Rosario FOSTER Diet: Heart Healthy [facility] Attending Provider Instructions: Resume Eliquis tomorrow night. F/U with PCP in 1-2 weeks. Call your Primary Care doctor if any of the following symptoms or problems start or get worse: * Shortness of breath or difficulty breathing * Wake up at night short of breath * Chest pain * Cough * Swelling of your hands, feet, or legs * More fatigued or tired with your normal activity * Palpitations - sudden fast heart beats WEIGHT * Weigh yourself every morning after using the bathroom. * Use the same scale. * Wear the same amount of clothing. * Write your weight down on a chart. * Call your Primary Care doctor if you gain more than 2-3 pounds in 1-2 days. MEDICATIONS * Use this discharge instruction sheet for medication instructions. * Take your medications at the time your doctor ordered. * Do not skip a dose of your medicines. * If you miss a dose of medicine, take it as soon as possible, but DO NOT DOUBLE A DOSE. * Read your medicine information when you get home. * Know all of the side effects of your medicine. If in doubt, ask your pharmacist * Call your Primary Care doctor's office if you have any side effects. * Be sure all of your doctors know what medicine and herbs you take (including cold, flu, and herbal medicine). Take the following with you to your follow-up doctor appointments: * Weight Chart * Medication List * List of questions Do not drink excessive alcohol, beer or wine. Add Crimper Operator Provider Instructions: ACTIVITY RECOMMENDATIONS: * Do not raise affected arm over head for 2 weeks. SPECIAL CARE INSTRUCTIONS: * If bleeding occurs, apply direct pressure to area for 5 minutes. * Call your doctor if you have severe pain, fever, drainage or bleeding at site. * Keep dressing on and dry for 72 hours then remove. * Keep any scheduled doctor's appointment. * Implant Card - hand held device with website information given. FOLLOW UP VISIT: Keep any scheduled doctor appointments. Pending Studies at Discharge: No Stand-Alone Forms: [employer], Smoking Cessation Medications and DC Order Prescriptions: Continued losartan 100 mg tablet 100 mg PO QAM Qty: 90 3RF flecainide 150 mg tablet 150 mg PO Q12H Qty: 180 3RF multivitamin [Multiple Vitamins] tablet 1 tab PO QAM Rx Instructions: Unable to verify OTC meds at this date/time. zinc gluconate 50 mg tablet 25 mg PO QAM Rx Instructions: Unable to verify OTC meds at this date/time. solifenacin [Vesicare] 5 mg tablet 5 mg PO DAILY Qty: 90 3RF Rx Instructions: Last filled 06/2024 x90 day supply dutasteride 0.5 mg capsule 0.5 mg PO DAILY Qty: 90 3RF ascorbic acid (vitamin C) [Vitamin C] 500 mg Tablet 500 mg PO QAM cholecalciferol (vitamin D3) [Vitamin D3] 25 mcg (1,000 unit) tablet 1,000 unit PO QAM Rx Instructions: Unable to verify OTC meds at this date/time. cyanocobalamin (vitamin B-12) [Vitamin B-12] 500 mcg Tablet 500 mcg PO QAM Patient Comments: YOU CAN CHEW IT BUT I JUST SWALLOW IT Rx Instructions: Unable to verify OTC meds at this date/time. polyethylene glycol 3350 [Miralax] 17 gram Powder In Packet 17 g PO QAM Patient Comments: MOSTLY EVERY MORNING Rx Instructions: Unable to verify OTC meds at this date/time. tavaborole 5 % solution with applicator 1 applic TOPICAL DAILY potassium chloride 20 mEq tablet,ER particles/crystals 20 meq PO DAILY PRN (Reason: Take w/ Lasix) PreserVision AREDS-2 250-90-40-1 mg Capsule 1 tab PO BID Rx Instructions: Unable to verify OTC meds at this date/time. bisacodyl [Dulcolax (bisacodyl)] 5 mg Tablet,Delayed Release (Dr/Ec) 5 mg PO DAILY PRN (Reason: Constipation) Rx Instructions: Unable to verify OTC meds at this date/time. Held Eliquis 5 mg tablet 0 mg PO BID Hold Instructions: Resume on 10/20/24. resume tomorrow night Rx Instructions: Last filled 08/2024 x30 day supply. Unable to verify if pt possibly getting samples. Original Directions: 5mg by mouth twice daily Discontinued furosemide 40 mg tablet 40 mg PO DAILY PRN (Reason: edema) Rx Instructions: Take with potassium supplement (20 meq) No Action furosemide 40 mg tablet 40 mg PO Q2D Qty: 45 3RF Rx Instructions: Take with potassium supplement (20 meq) Discharge Orders: Discharge Order (Routine); Ordered 10/19/24 Ordered By: Bharathi aJcques Admission Data Admit Date/Time: 10/16/24 15:17 Attending Provider: Bharathi Jacques Admit Provider: Bharathi Jacques Primary Care Provider: Srinath Christianson Other Providers: Bharathi Jacques; Say Esqueda; Lew Alfonso; Chuck Ford; Wilfredo Mike; Osman Berry; Jorge Can Jr; Pop Block; Luanne Peacock; Nikkie Hadley; Garcia Estes; Garcia Anglin; Karina Valentin; Chai Hanson; Maria Teresa Monsalve; Chai Jones; Satya Menjivar; Iglesia Smith Other Interventions: Discharge Summary Assessment (RN) Last Done: 10/19/24 16:11 Hospital Stay Data Consultations 10/16/24 14:50 ED Decision to Admit Stat 10/16/24 15:16 Consult Cardiology Routine Procedures Performed Operation Date: 10/19/24 12:00 Actual Procedures p Implant Cardiac Event Recorder - Osman Berry MD Diagnostic Imagining Performed 10/19/24 09:19 CL Cath Imgs for PACS use only Routine Pending Results Patient Have Any Pending Studies at Discharge: No Discharge Instructions Given to Patient (Per Discharging Provider) Resume Eliquis tomorrow night. F/U with PCP in 1-2 weeks. Call your Primary Care doctor if any of the following symptoms or problems start or get worse: * Shortness of breath or difficulty breathing * Wake up at night short of breath * Chest pain * Cough * Swelling of your hands, feet, or legs * More fatigued or tired with your normal activity * Palpitations - sudden fast heart beats WEIGHT * Weigh yourself every morning after using the bathroom. * Use the same scale. * Wear the same amount of clothing. * Write your weight down on a chart. * Call your Primary Care doctor if you gain more than 2-3 pounds in 1-2 days. MEDICATIONS * Use this discharge instruction sheet for medication instructions. * Take your medications at the time your doctor ordered. * Do not skip a dose of your medicines. * If you miss a dose of medicine, take it as soon as possible, but DO NOT DOUBLE A DOSE. * Read your medicine information when you get home. * Know all of the side effects of your medicine. If in doubt, ask your pharmacist * Call your Primary Care doctor's office if you have any side effects. * Be sure all of your doctors know what medicine and herbs you take (including cold, flu, and herbal medicine). Take the following with you to your follow-up doctor appointments: * Weight Chart * Medication List * List of questions Do not drink excessive alcohol, beer or wine. Total Time Total Time Spent Total Time Spent (In Minutes): 32 Coding Level of Care Code 91696 INP/OBS DISCH >30 MIN Diagnoses Acute exacerbation of CHF (congestive heart failure) I50.9 Dizziness R42 SSS (sick sinus syndrome) I49.5 BMI 35.0-35.9,adult Z68.35
== END 2024-10-19 16:25 | disposition home or self-care (01) | DRG 260 ==
LOC: ED 11:22 → 2E 15:17